=== PATIENT | female | born 1965 | race Caucasian/White ===

== ENCOUNTER 2016-04-30 01:11 | Emergency (ER) | payer OTHER ==
[~2016-04-30] VITALS: Ht 144.8 cm; Wt 75.9 kg
[2016-04-30 01:18] VITALS: TEMP 36.7; Ht 144.8 cm; Wt 75.9 kg
[2016-04-30 01:52] LABS: URINE APPEARANCE CLEAR (CLEAR); URINE BILIRUBIN NEG (NEG); URINE COLOR YELLOW; URINE EPITHELIAL CELL AUTO >30 /lpf (0-5); URINE NITRITE NEG (NEG); URINE SPECIFIC GRAVITY 1.003 (1.000-1.030); UROBILINOGEN NEG (NEG); ZZUR CULT IF INDIC CLEAN CATCH YES
[2016-04-30 01:53] LABS: MANUAL MICROSCOPIC REQUIRED? NO; REVIEW REQ? NO
[2016-04-30] MEDS ORDERED: VENL150C56 PO (02:06)
[2016-04-30] MEDS ORDERED: EFF75 PO (02:07)
[2016-04-30 02:08] LABS: HEMATOCRIT 36.2 % (37-47); MEAN CORPUSCULAR HEMOGLOBIN 29.8 pg (25-34); MEAN CORPUSCULAR HGB CONC 34.3 g/dl (32-36); MEAN PLATELET VOLUME 9.5 fL (7.4-10.4); PLATELET COUNT 302 K/uL (130-400); RED BLOOD COUNT 4.16 M/uL (4.2-5.4); WHITE BLOOD COUNT 8.93 K/uL (4.8-10.8)
[2016-04-30] MEDS ORDERED: LITH150C PO (02:08)
[2016-04-30 02:09] LABS: BENZODIAZEPINE, URINE NEG (NEG); COCAINE,URINE NEG (NEG); PHENCYCLIDINE, URINE NEG (NEG)
[2016-04-30] MEDS ORDERED: RISP0.5T10 PO (02:09)
[2016-04-30] MEDS ORDERED: FURO-85 PO (02:10)
[2016-04-30] MEDS ORDERED: CLON0.1T12 PO (02:10)
[2016-04-30] MEDS ORDERED: LISI-729 PO (02:11)
[2016-04-30] MEDS ORDERED: LORA-741 PO (02:12)
[2016-04-30] MEDS ORDERED: SITA25TA PO (02:12)
[2016-04-30] MEDS ORDERED: ATEN-173 PO (02:13)
[2016-04-30] MEDS ORDERED: OXCA150T2 PO (02:14)
[2016-04-30] MEDS ORDERED: CHOL1000 PO (02:15)
[2016-04-30] MEDS ORDERED: MULT-506 PO (02:15)
[2016-04-30] MEDS ORDERED: SENNTAB23 PO (02:16)
[2016-04-30] MEDS ORDERED: FENO48TA9 PO (02:17)
[2016-04-30] MEDS ORDERED: TRAZ50TA35 PO (02:19)
[2016-04-30] MEDS ORDERED: GLC/500 PO (02:19)
--- NOTE | 2016-04-30 02:22 | EMERGENCY ROOM VISIT NOTE ---
History Report prepared by Kyung: Carlin Bishop Under the Supervision of: Dr. Urvashi Velazquez M.D. First contact with patient: 01:32 Chief Complaint: ANXIETY Stated Complaint: WITHDRAWL FROM LORAZEPAM History of Present Illness The patient is a 50 year old female who presents to the Emergency Room with complaints of worsening anxiety that began several weeks prior to arrival. The patient states that she recently switched psychiatrists because she felt her previous psychiatrist was prescribing too many medications. Her new psychiatrist is currently taking her down from 2.5 mg of Lorazepam 4x's per day to 0.25 mg 2x's per day. She thinks she is becoming symptomatic because she is coming off her medication. Tonight she began to fear that she would take all of her pills due to her worsening anxiety. She admits that her suicidal plan would be to overdose on her medications. The patient was admitted to [address] [place] [address] over twenty years ago for depression. She notes that she has been suicidal since February of last years. She currently lives with her mother. 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 A total of 10 systems reviewed and were otherwise negative. Past Medical & Surgical Medical Problems: (1) Anxiety Anxiety Family History No pertinent family histories recorded. Social History Smoking Status: Never Smoker Marital Status: single Housing Status: lives with family Occupation Status: employed Current/Historical Medications Scheduled Atenolol (Tenormin), 50 MG PO DAILY Cholecalciferol (Vitamin D3), 2,000 UNITS PO DAILY Clomiphene Citrate (Clomiphene Citrate), 4 TABS PO HS Clonidine Hcl (Catapres), 0.2 MG PO DIRECTED Fenofibrate (Tricor), 145 MG PO DIRECTED Fish Oil ([place]-3), 1 CAP PO DAILY Fluticasone Propionate (Nasal) (Flonase Allergy Relief), 1 SPRAY MARIA LUISA DAILY Furosemide (Lasix), 20 MG PO DAILY Lisinopril (Zestril), 40 MG PO DAILY [place] Carbonate ([place] Carbonate), 600 MG PO HS Lorazepam (Ativan), Unknown Dose PO DIRECTED Metformin Hcl (Glucophage), 500 MG PO BID Methocarbamol (Robaxin), 375-750 MG PO Q8 Multivitamin (Multivitamin), 1 TAB PO DAILY Oxcarbazepine (Trileptal), 600 MG PO BID Risperidone (Risperdal), 0.5 MG PO QAM Risperidone (Risperdal), 1 TAB PO HS Sennosides-Docusate Sodium (Stool Softener), 1 TAB PO DIRECTED Sitagliptin (Januvia), 100 MG PO DAILY Trazodone Hcl (Trazodone), Unknown Dose PO DIRECTED Venlafaxine Hcl (Effexor Extended Rel), 150 MG PO HS Venlafaxine Hcl (Effexor), 75 MG PO DAILY Allergies Coded Allergies: No Known Allergies (Unverified , 04/30/16) Physical Exam Vital Signs Date Time Temp Pulse Resp B/P Pulse Ox O2 Delivery O2 Flow Rate FiO2 04/30/16 02:55 72 20 187/84 98 Room Air 04/30/16 01:25 75 04/30/16 01:18 36.7 80 18 211/88 99 Room Air Physical Exam Vital signs reviewed. General: Well-appearing female, in no significant distress. Noted to be hypertensive on exam. HEENT: No scleral icterus, PERRLA, neck supple. Atraumatic. Cardiovascular: Regular rate and rhythm, no extra sounds. Pulmonary: Clear to auscultation bilaterally, normal work of breathing. Abdomen: Soft, nontender, nondistended, positive bowel sounds. Musculoskeletal: Atraumatic, no peripheral edema. Neurologic: Patient awake alert and oriented x 3, full strength in all 4 extremities. Cranial nerves 2 through 12 grossly intact. Skin: Warm, dry, no rash Psych: Positive suicidal ideation, negative homicidal ideation. Medical Decision & Procedures Laboratory Results 04/30/16 01:55 Red Blood Count 4.16, Mean Corpuscular Volume 87.0, Mean Corpuscular Hemoglobin 29.8, Mean Corpuscular Hemoglobin Concent 34.3, Mean Platelet Volume 9.5, Neutrophils (%) (Auto) 56.5, Lymphocytes (%) (Auto) 35.6, Monocytes (%) (Auto) 6.9, Eosinophils (%) (Auto) 0.6, Basophils (%) (Auto) 0.1, Neutrophils # (Auto) 5.04, Lymphocytes # (Auto) 3.18, Monocytes # (Auto) 0.62, Eosinophils # (Auto) 0.05, Basophils # (Auto) 0.01 04/30/16 01:55 Test 04/30/16 01:32 04/30/16 01:55 Urine Color YELLOW Urine Appearance CLEAR (CLEAR) Urine pH 7.0 (4.5-7.5) Urine Specific [place] 1.003 (1.000-1.030) Urine Protein NEG (NEG) Urine Glucose (UA) NEG (NEG) Urine Ketones NEG (NEG) Urine Occult Blood NEG (NEG) Urine Nitrite NEG (NEG) Urine Bilirubin NEG (NEG) Urine Urobilinogen NEG (NEG) Urine Leukocyte Esterase LARGE (NEG) Urine WBC (Auto) 10-30 /hpf (0-5) Urine RBC (Auto) 0-4 /hpf (0-4) Urine Hyaline Casts (Auto) 0 /lpf (0-5) Urine Epithelial Cells (Auto) >30 /lpf (0-5) Urine Bacteria (Auto) NEG (NEG) Urine Opiates Screen NEG (NEG) Urine Methadone, Qualitative NEG (NEG) Urine Barbiturates NEG (NEG) Urine Phencyclidine (PCP) Level NEG (NEG) Ur Amphetamine/Methamphetamine NEG (NEG) MDMA (Ecstasy) Screen NEG (NEG) Urine Benzodiazepines Screen NEG (NEG) Urine Cocaine Metabolite NEG (NEG) Urine Marijuana (THC) NEG (NEG) White Blood Count 8.93 K/uL (4.8-10.8) Red Blood Count 4.16 M/uL (4.2-5.4) Hemoglobin 12.4 g/dL (12.0-16.0) Hematocrit 36.2 % (37-47) Mean Corpuscular Volume 87.0 fL (80-100) Mean Corpuscular Hemoglobin 29.8 pg (25-34) Mean Corpuscular Hemoglobin Concent 34.3 g/dl (32-36) Platelet Count 302 K/uL (130-400) Mean Platelet Volume 9.5 fL (7.4-10.4) Neutrophils (%) (Auto) 56.5 % Lymphocytes (%) (Auto) 35.6 % Monocytes (%) (Auto) 6.9 % Eosinophils (%) (Auto) 0.6 % Basophils (%) (Auto) 0.1 % Neutrophils # (Auto) 5.04 K/uL (1.4-6.5) Lymphocytes # (Auto) 3.18 K/uL (1.2-3.4) Monocytes # (Auto) 0.62 K/uL (0.11-0.59) Eosinophils # (Auto) 0.05 K/uL (0-0.5) Basophils # (Auto) 0.01 K/uL (0-0.2) RDW Standard Deviation 42.9 fL (36.4-46.3) RDW Coefficient of Variation 13.5 % (11.5-14.5) Immature Granulocyte % (Auto) 0.3 % Immature Granulocyte # (Auto) 0.03 K/uL (0.00-0.02) Anion Gap 12.0 mmol/L (3-11) Est Creatinine Clear Calc Drug Dose 61.2 ml/min Estimated GFR () 82.1 Estimated GFR (Non- 70.8 BUN/Creatinine Ratio 16.2 (10-20) Calcium Level 10.0 mg/dl (8.5-10.1) Total Bilirubin 0.4 mg/dl (0.2-1) Direct Bilirubin < 0.1 mg/dl (0-0.2) Aspartate Amino Transf (AST/SGOT) 22 U/L (15-37) Alanine Aminotransferase (ALT/SGPT) 17 U/L (12-78) Alkaline Phosphatase 27 U/L (45-117) Total Protein 7.6 gm/dl (6.4-8.2) Albumin 4.3 gm/dl (3.4-5.0) Salicylates Level 3.5 mg/dl (2.8-20) Acetaminophen Level < 2 ug/ml (10-30) Ethyl Alcohol mg/dL < 3.0 mg/dl (0-3) Laboratory results per my review. ECG Indication: altered mental status Rate (beats per minute): 79 Rhythm: normal sinus Findings: nonspecific-ST abn, other (LVH, poor baseline quality. ) ED Course 0202: Past medical records reviewed. The patient was evaluated in room B7. A complete history and physical examination was performed. 0537: The patient has been evaluated by Case Management on a psychiatric basis at this time. The patient and insurance manager agree to impatient treatment. She would like to go to [place], but they state they will not have beds open until they discharge current patients later on this morning. The patient will remain in the hospital until the beds open. 0730: The patient will be signed off to Dr. Reyes at change of shift. Medical Decision The patient's history was concerning for possible psychiatric disturbance. Differential diagnosis: Etiologies such as mood disorder, infection, hypoglycemia, electrolyte abnormalities, cardiac sources, intracerebral event, toxicologic, neurologic, as well as others were entertained. This patient was evaluated and appeared to be in no significant distress. Physical examination is fairly unrevealing. The patient minutes is suicidal ideation. She has been having difficulty transitioning off of her benzodiazepines. The patient has been medically cleared and was evaluated by mobile crisis. The patient prefers admission to the [facility]. They will be able to evaluate the patient for admission at approximately 7 AM. The patient will be held in the ER until that time. The case has been signed out to Dr. Reyes at the change of shift. Please see his note for disposition. Impression Primary Impression: Suicidal ideation Additional Impression: Benzodiazepine withdrawal Scribe Attestation The scribe's documentation has been prepared under my direction and personally reviewed by me in its entirety. I confirm that the note above accurately reflects all work, treatment, procedures, and medical decision making performed by me. Departure Information Dispostion Still a Patient (Patient will be signed off to Dr. Reyes at change of shift. ) Referrals Christiana Crawford, JusticeR.N.P (PCP) Patient Instructions My [facility] Problem Qualifiers Additional Impression: Benzodiazepine withdrawal Complication of substance-induced condition: with unspecified complication Qualified Codes: F13.239 - Sedative, hypnotic or anxiolytic dependence with withdrawal, unspecified
[2016-04-30 02:25] LABS: ALT/SGPT 17 U/L (12-78); AST/SGOT 22 U/L (15-37); BLOOD UREA NITROGEN 15 mg/dl (7-18); BUN/CREATININE RATIO 16.2 (10-20); CARBON DIOXIDE 24 mmol/L (21-32); CHLORIDE 108 mmol/L (98-107); CREATININE 0.95 mg/dl (0.60-1.20); GLUCOSE 148 mg/dl (70-99); POTASSIUM 3.6 mmol/L (3.5-5.1); SODIUM 144 mmol/L (136-145)
[2016-04-30 02:27] LABS: BASO % 0.1 %; BASO ABS # 0.01 K/uL (0-0.2); COMPLETE YES; EOS % 0.6 %; IG% 0.3 %; LYMPH % 35.6 %; LYMPH ABS # 3.18 K/uL (1.2-3.4); MONO % 6.9 %; NEUT % 56.5 %
[2016-04-30 02:28] LABS: ALKALINE PHOSPHATASE 27 U/L (45-117)
[2016-04-30] MEDS ORDERED: RISP1TAB18 PO (02:29)
[2016-04-30 02:37] LABS: ACETAMINOPHEN < 2 ug/ml (10-30)
[2016-04-30] MEDS ORDERED: CLOM50TA6 PO (02:38)
[2016-04-30] MEDS ORDERED: FLUT0.15 NAE (02:39)
[2016-04-30] MEDS ORDERED: METH-307 PO (02:41)
[2016-04-30] MEDS ORDERED: OMEG10007 PO (02:42)
[2016-04-30] MEDS ORDERED: VENLAFAXINE HCL 50 MG TAB PO ONE (09:30)
[2016-04-30] MEDS ORDERED: METFORMIN HCL 500 MG TAB PO ONE (09:30)
[2016-04-30] MEDS ORDERED: OXCARBAZEPINE 150 MG TAB PO ONE (09:30)
[2016-04-30] MEDS ORDERED: LISINOPRIL 40 MG TAB PO ONE (09:30)
[2016-04-30] MEDS ORDERED: RISPERIDONE ODT 0.5MG PO ONE (09:30)
[2016-04-30] MEDS ORDERED: FUROSEMIDE 20 MG TAB PO ONE (09:30)
--- NOTE | 2016-04-30 10:22 | EMERGENCY ROOM VISIT NOTE ---
ED Visit Note 50-year-old female signed off to me at change of shift from Dr. Velazquez. Patient is awaiting bed placement and transport. The patient was accepted at the [facility]. Transport form was completed.
[2016-04-30 10:23] VITALS: BP 185/86; PULSE 59; O2SAT 99
[2016-05-01] MEDS ORDERED: SITAGLIPTIN 100 MG TAB PO SCH (09:00)
[2016-05-06 14:31] LABS: SYNTHETIC CANNABINOIDS QL URIN NEGATIVE (Negative)
== END 2016-04-30 10:05 ==
LOC: EDBD 01:11 → C.EDB 01:13 → C.EDA 10:05
DX: R45.851 Suicidal ideations (principal); F13.239 Sedative, hypnotic or anxiolytic dependence with withdrawal, unspecified; F41.9 Anxiety disorder, unspecified; Z79.899 Other long term (current) drug therapy

== ENCOUNTER → 2016-05-25 | Outpatient (CLI) | payer OTHER ==
[~2016-05-25] MED LIST: ATEN-173 PO; CHOL1000 PO; CLON0.1T12 PO; EFF75 PO; FENO48TA9 PO; FLUT0.15 NAE; FURO-85 PO; GLC/500 PO; LISI-729 PO; LITH150C PO; LORA-741 PO; MULT-506 PO; OMEG10007 PO; OXCA150T2 PO; RISP0.5T10 PO; RISP1TAB18 PO; SENNTAB23 PO; SITA25TA PO; TRAZ50TA35 PO; VENL150C56 PO
[2016-05-25 12:43] LABS: CHOLESTEROL/HDL RATIO 5.2
[2016-05-25 12:53] LABS: ALT/SGPT 21 U/L (12-78); BLOOD UREA NITROGEN 15 mg/dl (7-18); CALCIUM 10.3 mg/dl (8.5-10.1); CARBON DIOXIDE 24 mmol/L (21-32); CHLORIDE 105 mmol/L (98-107); CREATININE 0.73 mg/dl (0.60-1.20); GLUCOSE 204 mg/dl (70-99); POTASSIUM 4.1 mmol/L (3.5-5.1); SODIUM 139 mmol/L (136-145)
[2016-05-25 12:56] LABS: ALB/GLOB RATIO 1.1 (0.9-2); ALKALINE PHOSPHATASE 34 U/L (45-117); AST/SGOT 22 U/L (15-37); ESTIMATED AVERAGE GLUCOSE 143 mg/dl; HA1C FLAG Normal (Normal)
== END | disposition home or self-care (01) ==
LOC: C.LABPVFM 10:45
PROVIDERS: ATTEND Nurse Practitioner
DX: E55.9 Vitamin D deficiency, unspecified (principal); E11.65 Type 2 diabetes mellitus with hyperglycemia; E78.00 Pure hypercholesterolemia, unspecified; I10 Essential (primary) hypertension

== ENCOUNTER → 2016-07-02 | Outpatient (CLI) | payer OTHER ==
[~2016-07-02] MED LIST changes: +BUSP30TA2 PO; +CHOL400T5 PO; +CLON0.2T PO; +FENO145T26 PO; +FLUO10CA48 PO; +FLUO20CA35 PO; +HYDR-3126 PO; +HYDR25TA4 PO; +INDSR/60 PO; +INSU1INJ33 SQ; +LSN20 PO; +MELATAB2 PO; +METF-384 PO; +PROP10TA7 PO; +QUET1TAB30 PO; +SENN-61 PO; +SITA100T3 PO; +ZYP10 PO; +ZYP5 PO
--- NOTE | 2016-07-03 15:28 | MAMMOGRAPHY REPORT ---
BILATERAL DIGITAL SCREENING MAMMOGRAM TOMOSYNTHESIS WITH CAD: 07/02/2016 CLINICAL HISTORY: Routine screening. Patient has no complaints. TECHNIQUE: Breast tomosynthesis in addition to standard 2D mammography was performed. Current study was also evaluated with a Computer Aided Detection (CAD) system. COMPARISON: Comparison is made to exams dated: 12/21/2014 mammogram, 07/03/2013 mammogram, 06/27/2012 mammogram, 06/21/2011 mammogram, and 06/20/2010 mammogram - [facility]. BREAST COMPOSITION: There are scattered areas of fibroglandular density in both breasts. FINDINGS: No new suspicious mass, architectural distortion or cluster of microcalcifications is see n. IMPRESSION: ACR BI-RADS CATEGORY 1: NEGATIVE There is no mammographic evidence of malignancy. A 1 year screening mammogram is recommended. The p atient will receive written notification of the results. Approximately 10% of breast cancers are not detected with mammography. A negative mammographic repor t should not delay biopsy if a clinically suggestive mass is present. Geeta Ellison M.D. ay/:07/02/2016 22:11:52 Scheme Technician: Nathaly CASPER(Trish)(M), [facility] letter sent: Normal 1/2 BI-RADS Code: ACR BI-RADS Category 1: Negative
== END | disposition home or self-care (01) ==
LOC: C.MAMM 13:12
PROVIDERS: ATTEND Nurse Practitioner
DX: Z12.31 Encounter for screening mammogram for malignant neoplasm of breast (principal)

== ENCOUNTER → 2017-01-19 | Outpatient (CLI) | payer OTHER ==
[~2017-01-19] MED LIST changes: -BUSP30TA2 PO; -CHOL400T5 PO; -CLON0.2T PO; -FENO145T26 PO; -FLUO10CA48 PO; -FLUO20CA35 PO; -HYDR-3126 PO; -HYDR25TA4 PO; -INDSR/60 PO; -INSU1INJ33 SQ; -LSN20 PO; -MELATAB2 PO; -METF-384 PO; -PROP10TA7 PO; -QUET1TAB30 PO; -SENN-61 PO; -SITA100T3 PO; -ZYP10 PO; -ZYP5 PO
[2017-01-19 13:44] LABS: ESTIMATED AVERAGE GLUCOSE 381 mg/dl; HA1C FLAG Normal (Normal)
[2017-01-19 15:00] LABS: BLOOD UREA NITROGEN 19 mg/dl (7-18); BUN/CREATININE RATIO 23.4 (10-20); CALCIUM 9.9 mg/dl (8.5-10.1); CARBON DIOXIDE 26 mmol/L (21-32); CHLORIDE 97 mmol/L (98-107); CREATININE 0.79 mg/dl (0.60-1.20); GLUCOSE 467 mg/dl (70-99); POTASSIUM 4.4 mmol/L (3.5-5.1); SODIUM 132 mmol/L (136-145)
[2017-01-19 15:10] LABS: BETA-HYDROXYBUTYRATE 13.66 mg/dL (0.2-2.81)
== END | disposition home or self-care (01) ==
LOC: C.LABPVFM 10:48
PROVIDERS: ATTEND Nurse Practitioner
DX: I10 Essential (primary) hypertension (principal); E11.69 Type 2 diabetes mellitus with other specified complication; E55.9 Vitamin D deficiency, unspecified

== ENCOUNTER 2017-02-01 11:17 | Inpatient (IN) | payer OTHER ==
[~2017-02-01] VITALS: Ht 144.8 cm; Wt 77.9 kg
[2017-02-01] MEDS ORDERED: CHOL400T5 PO (11:53)
[2017-02-01] MEDS ORDERED: SITA100T3 PO (11:53)
[2017-02-01] MEDS ORDERED: METF-384 PO (11:53)
[2017-02-01] MEDS ORDERED: HYDR-3126 PO (11:53)
[2017-02-01] MEDS ORDERED: PROP10TA7 PO (11:53)
[2017-02-01] MEDS ORDERED: BUSP30TA2 PO (11:53)
[2017-02-01] MEDS ORDERED: HYDR25TA4 PO (11:53)
[2017-02-01] MEDS ORDERED: ZYP5 PO (11:53)
[2017-02-01] MEDS ORDERED: INSU1INJ33 SQ (11:53)
[2017-02-01] MEDS ORDERED: FENO145T26 PO (11:53)
[2017-02-01] MEDS ORDERED: FLUO10CA48 PO (11:53)
[2017-02-01] MEDS ORDERED: LORA-741 PO (11:53)
[2017-02-01] MEDS ORDERED: QUET1TAB30 PO ×2 (11:53)
[2017-02-01] MEDS ORDERED: MELATAB2 PO (11:53)
[2017-02-01] MEDS ORDERED: SENN-61 PO (11:53)
[2017-02-01] MEDS ORDERED: FLUO20CA35 PO (11:53)
[2017-02-01] MEDS ORDERED: ZYP10 PO (11:53)
[2017-02-01 12:32] LABS: URINE APPEARANCE CLEAR (CLEAR); URINE BILIRUBIN NEG (NEG); URINE COLOR YELLOW; URINE PH 6.5 (4.5-7.5); URINE SPECIFIC GRAVITY 1.033 (1.000-1.030)
[2017-02-01 12:33] LABS: URINE EPITHELIAL CELL AUTO 20-30 /lpf (0-5); URINE NITRITE NEG (NEG); UROBILINOGEN NEG (NEG)
[2017-02-01 12:34] LABS: MANUAL MICROSCOPIC REQUIRED? NO; REVIEW REQ? NO; ZZUR CULT IF INDIC CLEAN CATCH NO
[2017-02-01 13:26] LABS: BASO % 0.4 %; BASO ABS # 0.04 K/uL (0-0.2); COMPLETE YES; EOS % 1.3 %; HEMATOCRIT 39.1 % (37-47); IG% 0.3 %; LYMPH % 42.1 %; LYMPH ABS # 3.89 K/uL (1.2-3.4); MEAN CELL VOLUME 85.4 fL (80-100); MEAN CORPUSCULAR HEMOGLOBIN 29.7 pg (25-34); MEAN CORPUSCULAR HGB CONC 34.8 g/dl (32-36); MONO % 5.5 %; NEUT % 50.4 %; PLATELET COUNT 301 K/uL (130-400); RED BLOOD COUNT 4.58 M/uL (4.2-5.4); WHITE BLOOD COUNT 9.23 K/uL (4.8-10.8)
[2017-02-01 13:43] LABS: BENZODIAZEPINE, URINE NEG (NEG); COCAINE,URINE NEG (NEG); PHENCYCLIDINE, URINE NEG (NEG)
[2017-02-01 13:44] LABS: BUN/CREATININE RATIO 15.2 (10-20); CALCIUM 10.6 mg/dl (8.5-10.1); CREATININE 0.9 mg/dl (0.60-1.20); POTASSIUM 3.6 mmol/L (3.5-5.1)
[2017-02-01 13:46] LABS: ALB/GLOB RATIO 1.1 (0.9-2)
[2017-02-01 13:55] LABS: BETA-HYDROXYBUTYRATE 3.7 mg/dL (0.2-2.81); THYROID STIMULATING HORMONE 1.1 uIu/ml (0.300-4.500)
[2017-02-01] MEDS ORDERED: CLON0.2T PO (14:40)
[2017-02-01] MEDS ORDERED: NovoLIN-R INSULIN PER UNIT CHARGE SQ STA ×2 (15:09→16:17)
[2017-02-01 16:38] LABS: ACETAMINOPHEN < 2 ug/ml (10-30)
[2017-02-01] MEDS ORDERED: SODIUM CHLORIDE 0.9% 1000ML 1,000 ML IV STA (17:16)
[2017-02-01] MEDS ORDERED: NovoLIN-R INSULIN PER UNIT CHARGE IV STA (17:16)
[2017-02-01] MEDS ORDERED: METFORMIN HCL 500 MG TAB PO STA (17:40)
[2017-02-01] MEDS ORDERED: PROPRANOLOL HCL 10 MG TAB PO ONE (17:45)
--- NOTE | 2017-02-01 19:50 | EMERGENCY ROOM VISIT NOTE ---
History Report prepared by Kyung: Shilpa Conde Under the Supervision of: Dr. Dank Lynne M.D. First contact with patient: 12:25 Chief Complaint: MENTAL HEALTH EVALUATION Stated Complaint: HIGH BLOOD SUGAR-OVER 400/DEPRESSION/ANXIETY History of Present Illness The patient is a 51 year old female who presents to the Emergency Room for a mental health evaluation. The patient states that her mood has "been down" and she has not been "feeling right". The patient reports having intermittent suicidal thoughts beginning a week or two ago. Per family, the patient told them about her suicidal thoughts this morning which prompted them to bring her to the hospital. She states "I feel like my medications don't work". The patient was hospitalized at the [facility] in the May. She states her time in the [facility] was "not good". She is agreeable to come into the hospital to get her medications figured out. The patient states her blood sugar was 500 last night and was around 300 this morning. The patient states she has been drinking wine and beer for the past couple days. She notes she drank a cup of wine this morning because of her depression and anxiety. She states she took her medications this morning. Presently, the patient feels anxious. The patient reports she did not sleep last night. She also notes a rash on her arm which has not been bothering her. She reports her vision has been blurry since last night. Pt denies LOC, headache, fevers, chills, diaphoresis, neck pain, chest pain, breathing difficulties, nausea, vomiting, abdominal pain, back pain, melena, hematochezia, urinary symptoms, numbness, weakness, lymphadenopathy, rash, or other complaints. Source of History: patient Onset: 1-2 weeks ago Position: other (generalized) Quality: other (mental health evaluation) Timing: intermittent Modifying Factors (Relieving): other (none) Note: The patient reports blurry vision. Review of Systems See HPI for pertinent positives and negatives. A total of ten systems were reviewed and were otherwise negative. Past Medical & Surgical Medical Problems: (1) Anxiety Family History FHx: hypertension Social History Smoking Status: Current Every Day Smoker Alcohol Use: occasionally Marital Status: single Housing Status: lives with family Occupation Status: employed Current/Historical Medications Scheduled Buspirone Hcl (Buspirone Hcl), 15 MG PO BID Cholecalciferol (Vitamin D), 4,000 INTER.UNIT PO DAILY Clonidine Hcl (Catapres), 0.1 MG PO DIRECTED Clonidine Hcl (Catapres), 1 TAB PO HS Fenofibrate (Tricor ), 145 MG PO DAILY Fluoxetine (Prozac), 10 MG PO QAM Fluoxetine (Prozac), 20 MG PO QAM Hydrochlorothiazide (Hctz), 25 MG PO QPM Hydroxyzine Hcl (Atarax), 75 MG PO HS Insulin Degludec (Tresiba Flextouch), 10 UNITS SQ DAILY Lorazepam (Ativan), 0.5 MG PO HS Melatonin (Melatonin Maximum Strengt), 10 MG PO HS Metformin Hcl (Glucophage), 1,000 MG PO BID Olanzapine (Olanzapine), 5 MG PO QAM Olanzapine (Olanzapine), 10 MG PO HS Propranolol (Inderal), 10 MG PO TID Quetiapine Fumarate (Seroquel), 25 MG PO QAM Quetiapine Fumarate (Seroquel), 50 MG PO HS Senna (Senokot), 2 TAB PO BID Sitagliptin Phosphate (Januvia), 100 MG PO DAILY Allergies Coded Allergies: No Known Allergies (Unverified , 02/01/17) Physical Exam Vital Signs Date Time Temp Pulse Resp B/P (MAP) Pulse Ox O2 Delivery O2 Flow Rate FiO2 02/01/17 18:10 80 18 179/86 96 Room Air 02/01/17 13:15 78 18 170/96 98 Room Air 02/01/17 11:24 36.9 75 17 159/91 98 Room Air Physical Exam GENERAL: Awake, alert, depressed appearing, no distress HENT: Normocephalic, atraumatic. TM's normal. Oropharynx unremarkable. EYES: PERRL. EOMI. Normal conjunctiva. Sclera non-icteric. NECK: Supple. No nuchal rigidity. FROM. No JVD or bruit. RESPIRATORY: CTA CARDIAC: RRR. No murmur. ABDOMEN: Soft, non distended. No tenderness to palpation. No rebound or guarding. No masses. MUSCULOSKELETAL: Unremarkable. No edema. No discoloration. Gross motor strength symmetric. NEURO: Cranial nerves 2-12 grossly intact. Normal sensorium. No sensory or motor deficits noted. Speech normal. No pronator drift. SKIN: No rash or jaundice noted. LYMPH: No adenopathy. PSYCH: Flat affect. Depressed mood. Positive suicidal ideation. Negative homicidal ideation. Medical Decision & Procedures Laboratory Results 02/01/17 13:11 Red Blood Count 4.58, Mean Corpuscular Volume 85.4, Mean Corpuscular Hemoglobin 29.7, Mean Corpuscular Hemoglobin Concent 34.8, Mean Platelet Volume 10.0, Neutrophils (%) (Auto) 50.4, Lymphocytes (%) (Auto) 42.1, Monocytes (%) (Auto) 5.5, Eosinophils (%) (Auto) 1.3, Basophils (%) (Auto) 0.4, Neutrophils # (Auto) 4.64, Lymphocytes # (Auto) 3.89, Monocytes # (Auto) 0.51, Eosinophils # (Auto) 0.12, Basophils # (Auto) 0.04 02/01/17 13:11 Test 02/01/17 11:50 02/01/17 13:11 02/01/17 15:06 02/01/17 15:38 Urine Color YELLOW Urine Appearance CLEAR (CLEAR) Urine pH 6.5 (4.5-7.5) Urine Specific [place] 1.033 (1.000-1.030) Urine Protein NEG (NEG) Urine Glucose (UA) 3+ (NEG) Urine Ketones NEG (NEG) Urine Occult Blood NEG (NEG) Urine Nitrite NEG (NEG) Urine Bilirubin NEG (NEG) Urine Urobilinogen NEG (NEG) Urine Leukocyte Esterase TRACE (NEG) Urine WBC (Auto) >30 /hpf (0-5) Urine RBC (Auto) 0-4 /hpf (0-4) Urine Hyaline Casts (Auto) 1-5 /lpf (0-5) Urine Epithelial Cells (Auto) 20-30 /lpf (0-5) Urine Bacteria (Auto) NEG (NEG) Urine Opiates Screen NEG (NEG) Urine Methadone, Qualitative NEG (NEG) Urine Barbiturates NEG (NEG) Urine Phencyclidine (PCP) Level NEG (NEG) Ur Amphetamine/Methamphetamine NEG (NEG) MDMA (Ecstasy) Screen NEG (NEG) Urine Benzodiazepines Screen NEG (NEG) Urine Cocaine Metabolite NEG (NEG) Urine Marijuana (THC) NEG (NEG) White Blood Count 9.23 K/uL (4.8-10.8) Red Blood Count 4.58 M/uL (4.2-5.4) Hemoglobin 13.6 g/dL (12.0-16.0) Hematocrit 39.1 % (37-47) Mean Corpuscular Volume 85.4 fL (80-100) Mean Corpuscular Hemoglobin 29.7 pg (25-34) Mean Corpuscular Hemoglobin Concent 34.8 g/dl (32-36) Platelet Count 301 K/uL (130-400) Mean Platelet Volume 10.0 fL (7.4-10.4) Neutrophils (%) (Auto) 50.4 % Lymphocytes (%) (Auto) 42.1 % Monocytes (%) (Auto) 5.5 % Eosinophils (%) (Auto) 1.3 % Basophils (%) (Auto) 0.4 % Neutrophils # (Auto) 4.64 K/uL (1.4-6.5) Lymphocytes # (Auto) 3.89 K/uL (1.2-3.4) Monocytes # (Auto) 0.51 K/uL (0.11-0.59) Eosinophils # (Auto) 0.12 K/uL (0-0.5) Basophils # (Auto) 0.04 K/uL (0-0.2) RDW Standard Deviation 39.5 fL (36.4-46.3) RDW Coefficient of Variation 13.0 % (11.5-14.5) Immature Granulocyte % (Auto) 0.3 % Immature Granulocyte # (Auto) 0.03 K/uL (0.00-0.02) Anion Gap 11.0 mmol/L (3-11) Est Creatinine Clear Calc Drug Dose 64.9 ml/min Estimated GFR () 87.0 Estimated GFR (Non- 75.1 BUN/Creatinine Ratio 15.2 (10-20) Calcium Level 10.6 mg/dl (8.5-10.1) Total Bilirubin 0.4 mg/dl (0.2-1) Aspartate Amino Transf (AST/SGOT) 25 U/L (15-37) Alanine Aminotransferase (ALT/SGPT) 28 U/L (12-78) Alkaline Phosphatase 62 U/L (45-117) Total Protein 8.0 gm/dl (6.4-8.2) Albumin 4.1 gm/dl (3.4-5.0) Globulin 3.9 gm/dl (2.5-4.0) Albumin/Globulin Ratio 1.1 (0.9-2) Beta-Hydroxybutyric Acid 3.70 mg/dL (0.2-2.81) Thyroid Stimulating Hormone (TSH) 1.100 uIu/ml (0.300-4.500) Ethyl Alcohol mg/dL < 3.0 mg/dl (0-3) Bedside Glucose 393 mg/dl (70-90) Salicylates Level < 1.7 mg/dl (2.8-20) Acetaminophen Level < 2 ug/ml (10-30) Laboratory results reviewed by me Medications Administered Medications (Trade) Dose Ordered Sig/Bud Route Start Time Stop Time Status Last Admin Dose Admin Insulin Human Regular (novoLIN-R U-100 PER UNIT) 10 units NOW STAT SQ 02/01/17 15:09 02/01/17 15:10 DC 02/01/17 15:09 10 UNITS Insulin Human Regular (novoLIN-R U-100 PER UNIT) 10 units NOW STAT SQ 02/01/17 16:17 02/01/17 16:18 DC 02/01/17 16:24 10 UNITS Sodium Chloride 1,000 ml @ 999 mls/hr Q1H1M STAT IV 02/01/17 17:16 02/01/17 18:16 DC 02/01/17 17:37 999 MLS/HR Insulin Human Regular (novoLIN-R U-100 PER UNIT) 5 units NOW STAT IV 02/01/17 17:16 02/01/17 17:19 DC 02/01/17 17:35 5 UNITS Propranolol HCl (Inderal Tab) 10 mg NOW ONCE PO 02/01/17 17:45 02/01/17 17:46 DC 02/01/17 18:09 10 MG Metformin HCl (Glucophage Tab) 1,000 mg NOW STAT PO 02/01/17 17:40 02/01/17 17:41 DC 02/01/17 18:09 1,000 MG ED Course 1246: The patient was evaluated in room A6. A complete history and physical exam was performed. 1509: Ordered Insulin Human Regular 10 units SQ. 1617: Ordered Insulin Human Regular 10 units SQ. 1635: The patient is doing well waiting on sugar recheck. 1716: Ordered Insulin Human Regular 5 units SQ, Sodium Chloride 1000 ml @ 999 mls/hr IV. 1725: I updated the patient on the treatment plan. 1739: [facility] wont accept the patient unless her blood sugar is below 250. Ordering the patients normal evening medications: Ordered Metformin HCl 1000 mg PO. 1744: Ordered Propranolol HCl 10 mg PO. 1911: The patient's blood sugar is down and the case supervisor will call Monica Phillips. 1921: The patient is resting comfortably and will be further evaluated by Monica Phillips. Medical Decision Triage Nursing notes reviewed. The patient's presentation and history were concerning for suicidal thoughts and high blood sugar. Etiologies such as mood disorder, toxicologic, infection, hypoglycemia, electrolyte abnormalities, cardiac sources, intracerebral event, neurologic, as well as others were entertained. Patient was evaluated. Clinically she was doing well. She was found to be hyperglycemic. She was given 2 doses of subcutaneous insulin. She started hyperglycemia. Psychiatry requested that her blood sugar be lower. She had an IV established. She was hydrated with a liter of normal saline. The patient was given 5 units of IV insulin. Her blood sugar was rechecked and was now in a more acceptable level. The remainder of her laboratory work was unremarkable. The patient did well without physician in the emergency department. The patient was accepted to 3 . for further management and mental health treatment. Blood Pressure Screening Patient's blood pressure: Elevated blood pressure Blood pressure disposition: Referred to PCP (evaluated by Monica Phillips) Impression Primary Impression: Hyperglycemia Additional Impression: Suicidal ideation Scribe Attestation The scribe's documentation has been prepared under my direction and personally reviewed by me in its entirety. I confirm that the note above accurately reflects all work, treatment, procedures, and medical decision making performed by me. Departure Information Dispostion Mental Health Acute Care Referrals Christiana Crawford C.R.N.P (PCP) Patient Instructions My [facility] Problem Qualifiers
[2017-02-01] MEDS ORDERED: ACETAMINOPHEN 325 MG TAB PO PRN (20:00)
[2017-02-01] MEDS ORDERED: MAGNESIUM HYDROXIDE SUSP 30 ML UDC PO PRN (20:00)
[2017-02-01] MEDS ORDERED: SODIUM CHLORIDE 0.65% NA SOLN 45 ML (OCEAN) PRN (20:00)
[2017-02-01] MEDS ORDERED: ALUMINUM/MAGNESIUM SUSP 30 ML UDC PO PRN (20:00)
[2017-02-01] MEDS ORDERED: BISMUTH SUBSALICYLATE PER ML OMNICELL CHARGE PO PRN (20:00)
[2017-02-01] MEDS ORDERED: PHARMACY GLYCEMIC MGMT CONSULT PRN (20:29)
[2017-02-01] MEDS ORDERED: DEXTROSE 50% 50 ML SYR IV PRN (20:45)
[2017-02-01] MEDS ORDERED: GLUCOSE 40% GEL 15 GM TUBE PO PRN (20:45)
[2017-02-01] MEDS ORDERED: GLUCOSE 10 TABS/TUBE PO PRN (20:45)
[2017-02-01] MEDS ORDERED: GLUCAGON FOR INJ 1 MG VIAL SQ PRN (20:45)
[2017-02-01] MEDS ORDERED: NON-FORMULARY MEDICATION (Melatonin (Melatonin Maximum Strengt) 10 MG) PO SCH (21:00)
[2017-02-01 21:01] VITALS: O2SAT 97
[2017-02-01 21:48] VITALS: BP 165/86; PULSE 72; TEMP 36.9; BMI 37.2
[2017-02-01] MEDS: LORAZEPAM 0.5 MG TAB PO SCH ×2 (22:00→23:01)
[2017-02-01] MEDS: BusPIRone 15 MG TAB PO SCH ×2 (22:00→23:01)
[2017-02-01] MEDS: OLANZAPINE 10 MG TAB PO SCH ×2 (22:00→23:03)
[2017-02-01] MEDS: PROPRANOLOL HCL 10 MG TAB PO SCH ×2 (22:00→23:02)
[2017-02-01] MEDS: INSULIN ASPART 100 UNITS/ML 3 ML PEN SC SCH ×2 (22:00→23:13)
[2017-02-01] MEDS: INSULIN GLARGINE SOLOSTAR 100 UNITS/ML 3 ML PEN SC SCH ×2 (22:00→23:10)
[2017-02-01] MEDS: CLONIDINE HCL 0.1 MG TAB PO SCH ×2 (22:00→23:02)
[2017-02-01 23:02] VITALS: BP 152/82; PULSE 73
[2017-02-01] MEDS: HYDROCHLOROTHIAZIDE 25 MG TAB PO SCH (23:02)
[2017-02-01] MEDS: hydrOXYzine HCL 25 MG TAB PO SCH (23:35)
[2017-02-02] MEDS ORDERED: INSULIN ASPART 100 UNITS/ML 3 ML PEN SC SCH ×2 (02:00→04:00)
[2017-02-02 06:55] VITALS: BP_SYST 135; BP_SYST 172; BP_DIAS 102; BP_DIAS 95; PULSE 76; PULSE 81; TEMP 36.8
[2017-02-02] MEDS ORDERED: CLONIDINE HCL 0.1 MG TAB PO ONE (08:00)
[2017-02-02 08:53] VITALS: BP 152/88; PULSE 88
[2017-02-02] MEDS ORDERED: FLUOXETINE HCL 20 MG CAP PO SCH (09:00)
[2017-02-02] MEDS ORDERED: INSULIN GLARGINE SOLOSTAR 100 UNITS/ML 3 ML PEN SC ONE (09:00)
[2017-02-02] MEDS ORDERED: FLUOXETINE HCL 10 MG CAP PO SCH (09:00)
[2017-02-02] MEDS: BusPIRone 15 MG TAB PO SCH ×2 (09:04→22:18)
[2017-02-02] MEDS: METFORMIN HCL 500 MG TAB PO SCH ×2 (09:05→17:13)
[2017-02-02] MEDS: PROPRANOLOL HCL 10 MG TAB PO SCH ×3 (09:05→22:18)
[2017-02-02] MEDS: OLANZAPINE 5 MG TAB PO SCH (09:06)
[2017-02-02] MEDS: FENOFIBRATE 145 MG TAB PO SCH (09:06)
[2017-02-02] MEDS: CHOLECALCIFEROL 1000 INTER.UNIT TAB PO SCH (09:06)
[2017-02-02] MEDS: SITAGLIPTIN 100 MG TAB PO SCH (09:06)
[2017-02-02] MEDS: INSULIN ASPART 100 UNITS/ML 3 ML PEN SC SCH ×4 (09:09→22:00)
[2017-02-02 10:00] VITALS: BMI 37.2
--- NOTE | 2017-02-02 13:27 | Pharmacy Progress Note ---
Glycemic Control Intl Consult Date of Service Feb 02, 2017. Scope Glycemic Pharmacist consulted by Dr Roy on 02/01/17 for glycemic control and to write orders per [facility] inpatient glycemic control protocol Objective Weight (Kilograms): 77.900 Accuchecks BSG (last 24hrs): Test 02/01/17 12:03 02/01/17 13:11 02/01/17 15:06 02/01/17 16:15 Bedside Glucose 309 mg/dl (70-90) 393 mg/dl (70-90) 382 mg/dl (70-90) Random Glucose 311 mg/dl (70-99) Test 02/01/17 17:01 02/01/17 18:37 02/01/17 18:48 02/02/17 04:15 Bedside Glucose 322 mg/dl (70-90) 204 mg/dl (70-90) 172 mg/dl (70-90) 281 mg/dl (70-90) Test 02/02/17 08:03 Bedside Glucose 268 mg/dl (70-90) Laboratory Data (last 24hrs) Test 02/01/17 13:11 Anion Gap 11.0 mmol/L BUN/Creatinine Ratio 15.2 Blood Urea Nitrogen 14 mg/dl Creatinine 0.90 mg/dl Potassium Level 3.6 mmol/L Sodium Level 132 mmol/L White Blood Count 9.23 K/uL Red Blood Count 4.58 M/uL Hemoglobin 13.6 g/dL Hematocrit 39.1 % Mean Corpuscular Volume 85.4 fL Mean Corpuscular Hemoglobin 29.7 pg Mean Corpuscular Hemoglobin Concent 34.8 g/dl Platelet Count 301 K/uL Mean Platelet Volume 10.0 fL Neutrophils (%) (Auto) 50.4 % Lymphocytes (%) (Auto) 42.1 % Monocytes (%) (Auto) 5.5 % Eosinophils (%) (Auto) 1.3 % Basophils (%) (Auto) 0.4 % Neutrophils # (Auto) 4.64 K/uL Lymphocytes # (Auto) 3.89 K/uL Monocytes # (Auto) 0.51 K/uL Eosinophils # (Auto) 0.12 K/uL Basophils # (Auto) 0.04 K/uL Recent Pertinent Medications Outpatient Anti-diabetic Regimen: * Tresiba 10 units SQ daily, metformin 1 gm PO BID, and Januvia 100 mg PO daily * A1c = 14.9 % 01/19/17 The patient is currently receiving: * Basal insulin: Lantus 15 units every 24 hours in the evening * Correctional Insulin: Novolog Correction per scale ACHS Goal Range: Low 140 mg/dL - High 180 mg/dL Correction Factor: 30 mg/dL/unit * Prandial insulin: Per carb ratio of 1 unit per 10 grams CHO consumed Risk Factors for Insulin Resistance: * Diet: T2 DM diet Assessment & Plan ASSESSMENT: * ADA & AACE recommend a goal blood sugar range 140-180 mg/dl for the majority of critically ill & non-critically ill patients. However, more stringent targets may be selected in individual cases. Will continue the above mentioned goal currently as patient's HbA1C is elevated and she tolerates an average blood sugar of 453 mg/dL. * Mr Martins is a 51 y/o F admitted with anxiety and depressive disorder. Whenever she was admitted to the ER her blood sugar was over 300 mg/dL. She was given 10 units of regular SQ insulin x 2 and 5 units IV. Subsequently her blood sugar decreased to 172 mg/dL. * On admission to the mental health unit, 0.2 units/kg of insulin was started as it was evident the patient's 10 units of Tresiba was not sufficient. Her fasting blood sugar was 268 mg/dL and the patient required 4 units of Novolog overnight. Therefore, an additional 10 units of Lantus was utilized for this morning. A scale will be provided for this evening as uncertain how patient will respond. Goal is to transition to once daily Lantus dosing tomorrow. * Initially, Novolog weight based stress of 2 was started last night and it appeared to provide adequate correction overnight. It did not cover breakfast however. Therefore, tightened to weight-based stress of 3 for time-being. * The patient's oral medications were continued as she was not admitted to a medical floor. PLAN FOR INPATIENT GLYCEMIC CONTROL: * Basal insulin with LANTUS 10 x 1 then 10-20 units SQ HS x 1 * Correctional Insulin with NOVOLOG per scale ACHS or Q6hrs while NPO * Goal Range: Low 140 mg/dL - High 180 mg/dL * Correction Factor: 20 mg/dL/unit * Nutritional / Prandial insulin per carb ratio of 1 unit per 7 grams CHO consumed * Please note that the plan above was derived based on current level of insulin resistance and hospital stress. These recommendations are appropriate for inpatient admission only. Plan of care upon discharge will need to be reassessed to avoid potential outpatient hypo/hyperglycemia. Thank you.
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
[2017-02-02] MEDS ORDERED: FLUOXETINE HCL 10 MG CAP PO ONE (14:38)
[2017-02-02 16:59] VITALS: BP 155/87; PULSE 64
[2017-02-02] MEDS: HYDROCHLOROTHIAZIDE 25 MG TAB PO SCH (20:55)
[2017-02-02 20:57] VITALS: BP 146/87; PULSE 68
[2017-02-02] MEDS ORDERED: INSULIN GLARGINE SOLOSTAR 100 UNITS/ML 3 ML PEN SC SCH (22:00)
[2017-02-02] MEDS ORDERED: INSULIN DEGLUDEC 100 UNIT/ML SQ SCH (22:00)
[2017-02-02] MEDS: LORAZEPAM 0.5 MG TAB PO SCH (22:18)
[2017-02-02] MEDS: hydrOXYzine HCL 25 MG TAB PO SCH (22:19)
[2017-02-02] MEDS: DOCUSATE SODIUM 100 MG CAP PO SCH (22:19)
[2017-02-02] MEDS: OLANZAPINE 10 MG TAB PO SCH (22:19)
[2017-02-02] MEDS: CLONIDINE HCL 0.1 MG TAB PO SCH (22:19)
[2017-02-03 06:55] VITALS: BP_SYST 186; BP_SYST 193; BP_DIAS 107; BP_DIAS 115; PULSE 85; PULSE 88; TEMP 36.4
[2017-02-03] MEDS: CLONIDINE HCL 0.1 MG TAB PO SCH ×3 (07:11→21:30)
[2017-02-03 08:08] VITALS: BP_SYST 171; BP_SYST 186; BP_DIAS 105; BP_DIAS 107; PULSE 71; PULSE 85; PULSE 88; TEMP 36.4
--- NOTE | 2017-02-03 08:39 | Psychiatric Progress Notes ---
Progress Note Date of Service Feb 03, 2017. Interval History The patient is a 51yo female with history of schizoaffective disorder bipolar type currently depressed who presented to the ER on 02/01/17 brought by family after she disclosed having SI that had been culminating over the prior 1-2 weeks. She had plan for toxic ingestion of her medications. She reported anxiety and stated "I feel like my medications do not work." She endorses drinking 2 cups of wine a night to self-medicate. She slept poorly the night preceding admission. Chief Complaint "I feel anxious". Subjective Patient was seen & assessed interval progress reviewed with Nursing Continues to describe mood as anxious but does not appear so, but rather appears flat and dysphoric. She was visited by DM educator, and is under the care of the hospital glycemic control team with some ongoing elevations. It is not clear if she has the ability to manage insulin yet. BP's continue to be very high despite taking her HCTZ and clonidine. She does not appear distressed when sitting in the day room watching TV with others. Patient states she feels "anxious" but on further dialouge she is paranoid that others are mad at her. She is not spontaneously able to reality test but does walk through with provider that she is aware it is her thought, that it is unlikley others are mad , that she could greet people to see how they respond to her for reassurance. Review of Systems She is eating well, and slept well and denies problems with her bowels. Sleep Information Total Hours of Sleep: 6.50 Meal Information Percent of Breakfast Consumed: 100 Percent of Lunch Consumed: 100 Percent of Dinner Consumed: 100 Mental Status Exam During interview pt is: alert and oriented, cooperative Appearance: appropriately dressed, other (overweight) Eye contact is: good Motor behavior is: steady gait & station, no abnormal motor movements Speech: normal in rate, rhythm & volume Affect: depressed Mood is: depressed, anxious Thought process: goal directed, linear, logical, clear, coherent, concrete Thought content: paranoid (that others are mad at her), ideas of reference ( that others are using facial expressions to show they are mad at her), hopelessness, worthlessness Suicidal thought are: present (less intense in the hospital), Plan: present ( to overtake medication), Intent: denied (while in the hospital) Impression Jeri Martins is a 51-year-old single white female on disability for schizoaffective disorder bipolar type. She additionally has diabetes, hypertension, hyperlipidemia and alcohol abuse. She presents in the context of worsening depressed mood and anxiety with onset of suicidal ideations worsening over the last 1-2 weeks with a plan to overdose on her medications. Inpatient care is the least restrictive and most appropriate setting for care given the patient is unsafe. Plan (1) Schizoaffective disorder, bipolar type 02/02/17 -Patient has a history of refractory schizoaffective disorder bipolar type. She has had multiple medication trials in the past. At this time given her accelerating diabetes and that she is overweight we will not increase her Zyprexa -Will hold Seroquel and defer to obtaining prior history prior to combining 2 atypicals -Consider Saphris if she has not had a trial, Abilify may be an additional option, will need to get outpatient records -We will optimize her Prozac from 30 mg to 40 mg watching mood stability -Continue her buspirone and her Vistaril when necessary for now -Group, sanchez milieu and safety checks 02/03/17 - will get med list from [facility] for past several years to see what she has been on given clinics are closed until tomorrow to inform med choice - for today will attempt to increase zyprexa to 15mg/hs (continuing her 5mg/AM) to target residual psychosis, but this may not be best fpc solution given her DM - continue all other meds as written (2) Diabetes 02/02/17 -Continue to Trsubia brought in by patient's family, metformin 1000 mg by mouth twice a day,sitagliptin, and appreciate pharmacy glycemic control assistance 02/03/17 - questioning if insulin is a good option for this individual, contacting IM for HTN and asking regarding diabetes management options as well (3) Hyperlipidemia Continue fenofibrate Last lipids in [facility] record drawn 05/25/2016 total cholesterol 213, triglycerides 232, LDL 126, HDL 41 (4) Hypertension 02/02/17 -Continue lisinopril hydrochlorothiazide and Inderal and clonidine 02/03/17 - ongoing significant HTN despite giving home meds, will request IM consultation for assistance (5) Constipation Avoid senna or other stimulating laxity does We'll give miralax for 3 days consistently holding for any loose bowel movements and start Colace 100 mg by mouth twice a day to continue long-standing Discharge / Aftercare Planning Primary Care Physician: Name: RICHARD Avelar Therapist: Name: [employer] Coordinator: Name: None Visit Code E&M Code: 02224 Inventory Assets Strengths: Willingness for care Supportive family Needs: Stabilization of her safety, addressing substance use Risk Factors Assessment : Yes /single/: Yes Health problems: Yes Mental Health Diagnoses: Yes Substance use disorders: Yes Previous attempt: Yes Family history of suicide: Yes Previous psychiatric stay: Yes Hopelessness: Yes Smoker: No Protective Factors Assessment Restorationist beliefs: No : No Responsible for young children: No Employed: No Stable relationships: Yes Supportive family: Yes Good rapport with provider: Yes Data Vital Signs Last 24 Hrs: Date Time Temp Pulse Resp B/P (MAP) Pulse Ox O2 Delivery O2 Flow Rate FiO2 02/03/17 06:55 36.4 85 16 193/115 88 186/107 02/02/17 20:57 68 146/87 02/02/17 16:59 64 155/87 02/02/17 08:53 88 152/88 Meds Administered Last 24 Hrs: Meds Administered (Past 24Hrs) Medications (Trade) Dose Ordered Sig/Bud Route Start Time Stop Time Status Last Admin Dose Admin Insulin Human Regular (novoLIN-R U-100 PER UNIT) 10 units NOW STAT SQ 02/01/17 15:09 02/01/17 15:10 DC 02/01/17 15:09 10 UNITS Insulin Human Regular (novoLIN-R U-100 PER UNIT) 10 units NOW STAT SQ 02/01/17 16:17 02/01/17 16:18 DC 02/01/17 16:24 10 UNITS Sodium Chloride 1,000 ml @ 999 mls/hr Q1H1M STAT IV 02/01/17 17:16 02/01/17 18:16 DC 02/01/17 17:37 999 MLS/HR Insulin Human Regular (novoLIN-R U-100 PER UNIT) 5 units NOW STAT IV 02/01/17 17:16 02/01/17 17:19 DC 02/01/17 17:35 5 UNITS Propranolol HCl (Inderal Tab) 10 mg NOW ONCE PO 02/01/17 17:45 02/01/17 17:46 DC 02/01/17 18:09 10 MG Metformin HCl (Glucophage Tab) 1,000 mg NOW STAT PO 02/01/17 17:40 02/01/17 17:41 DC 02/01/17 18:09 1,000 MG Cholecalciferol (Vitamin D Tab) 4,000 inter.unit DAILY PO 02/02/17 09:00 03/04/17 08:59 02/02/17 09:06 4,000 INTER.UNIT Fenofibrate (Tricor Tab) 145 mg DAILY PO 02/02/17 09:00 03/04/17 08:59 02/02/17 09:06 145 MG Fluoxetine HCl (Prozac Cap) 10 mg QAM PO 02/02/17 09:00 02/02/17 14:46 DC 02/02/17 09:06 10 MG Fluoxetine HCl (Prozac Cap) 20 mg QAM PO 02/02/17 09:00 02/02/17 14:46 DC 02/02/17 09:06 20 MG Hydrochlorothiazide (Hydrochlorothiazide Tab) 25 mg QPM PO 02/01/17 21:00 03/03/17 20:59 02/02/17 20:55 25 MG Hydroxyzine HCl (Vistaril Tab) 75 mg HS PO 02/01/17 22:00 03/03/17 21:59 02/02/17 22:19 75 MG Lorazepam (Ativan Tab) 0.5 mg HS PO 02/01/17 21:00 03/03/17 20:59 02/02/17 22:18 0.5 MG Metformin HCl (Glucophage Tab) 1,000 mg BIDM PO 02/02/17 08:00 03/04/17 07:59 02/02/17 17:13 1,000 MG Olanzapine (Zyprexa Tab) 5 mg QAM PO 02/02/17 09:00 03/04/17 08:59 02/02/17 09:06 5 MG Olanzapine (Zyprexa Tab) 10 mg HS PO 02/01/17 21:00 03/03/17 20:59 02/02/17 22:19 10 MG Propranolol HCl (Inderal Tab) 10 mg TID PO 02/01/17 21:00 03/03/17 20:59 02/02/17 22:18 10 MG Sitagliptin Phosphate (Januvia Tab) 100 mg DAILY PO 02/02/17 09:00 03/04/17 08:59 02/02/17 09:06 100 MG Buspirone HCl (BusPAR TAB) 15 mg BID PO 02/01/17 21:00 03/03/17 20:59 02/02/17 22:18 15 MG Clonidine HCl (Catapres Tab) 0.2 mg HS PO 02/01/17 21:00 03/03/17 20:59 02/02/17 22:19 0.2 MG Insulin Glargine (Lantus Solostar Pen) 15 units HS SC 02/01/17 21:00 02/02/17 12:00 DC 02/01/17 23:10 15 UNITS Insulin Aspart (novoLOG ASPART) SLIDING SCALE ACHS TX 02/01/17 21:00 03/03/17 20:59 02/02/17 17:47 12 UNITS Insulin Aspart (novoLOG ASPART) SLIDING SCALE TODAY@0400 TX 02/02/17 04:00 02/02/17 04:01 DC 02/02/17 04:23 4 UNITS Clonidine HCl (Catapres Tab) 0.1 mg NOW ONCE PO 02/02/17 08:00 02/02/17 08:01 DC 02/02/17 09:04 0.1 MG Insulin Glargine (Lantus Solostar Pen) 10 units NOW ONCE SC 02/02/17 09:00 02/02/17 09:01 DC 02/02/17 09:07 10 UNITS Clonidine HCl (Catapres Tab) 0.1 mg [id number] PO 02/03/17 07:00 03/05/17 06:59 02/03/17 07:11 0.1 MG Fluoxetine HCl (Prozac Cap) 10 mg 1438 ONCE PO 02/02/17 14:38 02/02/17 14:56 DC 02/02/17 15:13 10 MG Docusate Sodium (coLACE CAP) 100 mg BID PO 02/02/17 22:00 03/04/17 21:59 02/02/17 22:19 100 MG Insulin Degludec (Tresiba Flextouch) SEE PROTOCOL TEXT HS SQ 02/02/17 22:00 02/02/17 22:01 DC 02/02/17 22:24 15 UNITS Lab Results Last 24 Hrs: Last 24 Hours Test 02/02/17 08:03 02/02/17 11:34 02/02/17 16:05 02/02/17 20:48 Bedside Glucose 268 mg/dl 286 mg/dl 224 mg/dl 173 mg/dl
[2017-02-03] MEDS: SITAGLIPTIN 100 MG TAB PO SCH (08:44)
[2017-02-03] MEDS: DOCUSATE SODIUM 100 MG CAP PO SCH ×2 (08:44→21:30)
[2017-02-03] MEDS: PROPRANOLOL HCL 10 MG TAB PO SCH ×3 (08:44→21:30)
[2017-02-03] MEDS: BusPIRone 15 MG TAB PO SCH ×2 (08:44→21:30)
[2017-02-03] MEDS: METFORMIN HCL 500 MG TAB PO SCH (08:44)
[2017-02-03] MEDS: FLUOXETINE HCL 20 MG CAP PO SCH (08:44)
[2017-02-03] MEDS: CHOLECALCIFEROL 1000 INTER.UNIT TAB PO SCH (08:45)
[2017-02-03] MEDS: FENOFIBRATE 145 MG TAB PO SCH (08:45)
[2017-02-03] MEDS: OLANZAPINE 5 MG TAB PO SCH (08:45)
[2017-02-03] MEDS: INSULIN ASPART 100 UNITS/ML 3 ML PEN SC SCH ×4 (08:53→21:40)
[2017-02-03] MEDS ORDERED: INSULIN DEGLUDEC 100 UNIT/ML SQ SCH ×2 (09:00→22:00)
[2017-02-03] MEDS: POLYETHYLENE (MIRALAX) 17 GM PACK PO SCH (09:01)
[2017-02-03 10:22] VITALS: BP 178/99; PULSE 62
--- NOTE | 2017-02-03 12:04 | Pharmacy Progress Note ---
Pharmacy Glycemic Short Note 2 Date of Service Feb 03, 2017. OUTPATIENT ANTIDIABETIC REGIMEN: * Tresiba 10 units SQ once daily * metformin 1 gm PO BID * Januvia 100 mg PO daily ASSESSMENT: * Ms Martins is a 51 y/o F with a PMH of anxiety admitted for depressive disorder. Her blood sugars yesterday ranged from 173 mg/dL to 268 mg/dL. Her fasting today is 272 mg/dL compared to 268 mg/dL yesterday. Lantus increased today to total daily dose of 30-35 (compared to 25 units yesterday) units. Aim for once daily dosing starting Saturday. Novolog tightened to weight-based stress of 3 yesterday... now goal range reduced to provide blood sugars below 200 mg/dL. PLAN FOR INPATIENT GLYCEMIC CONTROL: * metformin 1000 mg PO BID and Januvia 100 mg PO daily * Basal insulin * Lantus 15-20 units SQ BID * Bolus insulin * NovoLog per scale ACHS or Q6hrs while NPO * Goal Range: Low 110 mg/dL - High 140 mg/dL * Correction Factor: 20 mg/dL/unit * Nutritional / Prandial insulin per carb ratio of 1 unit per 7 grams CHO consumed PLAN FOR DISCHARGE: * determined based upon dosing in hospital
[2017-02-03 14:06] VITALS: BP 154/90; PULSE 72
[2017-02-03] MEDS ORDERED: DOCUSATE SODIUM 100 MG CAP PO ONE (14:47)
--- NOTE | 2017-02-03 14:52 | Medical Consult ---
Consultation Date of Consultation: Feb 03, 2017. Attending Physician: Marcelle Roy MD History of Present Illness Ms. Martins came to the ED 02/01 due to depression and suicidal ideation. Since then her physical complaints includethat she has had blurred vision since her blood sugars began running in the 300s a few weeks ago, and she has also had increased thirst and urination. She checks her blood sugars twice per day at home. She does not follow any particular diet. She does not check blood pressures at home but thinks her htn is well managed. She has felt some racing heart rate which she associates with her anxiety. She does not currently feel any racing heart rate, palpitations or chest pain. She also suffers from chronic constipation ROS Constitutional: no chills, aches, sweats or fever Respiratory: no sob,cough, sputum, or wheezing Cardiac: no chest pain, palpitations, edema, orthopnea or lightheadedness GI: no abdominal pain, nausea, vomiting, diarrhea : no dysuria or hesitancy Extremities: no joint pain or weakness Skin: no rash Past Medical/Surgical History Medical Problems: (1) Benzodiazepine withdrawal Status: Acute (2) Hyperglycemia Status: Acute (3) Suicidal ideation Status: Acute (4) Suicidal ideation Status: Acute Family History Diabetes mellitus (cousin) FH: thyroid disease FHx: hypertension Hypertension (mother) Social History Smoking Status: Former Smoker (quit "years ago") Marital Status: single Housing Status: lives with family Occupation Status: employed Allergies Coded Allergies: No Known Allergies (Unverified , 02/01/17) Current Inpatient Medications Current Inpatient Medications Medications (Trade) Dose Ordered Sig/Bud Route Start Time Stop Time Status Last Admin Dose Admin Acetaminophen (Tylenol Tab) 650 mg Q4H PRN PO 02/01/17 20:00 03/03/17 19:59 Bismuth Subsalicylate (Kaopectate Liqd) 15 ml PRN PRN PO 02/01/17 20:00 03/03/17 19:59 Al Hydroxide/Mg Hydroxide (Maalox Susp) 30 ml Q4H PRN PO 02/01/17 20:00 03/03/17 19:59 Magnesium Hydroxide (Milk Of Magnesia Susp) 30 ml DAILY PRN PO 02/01/17 20:00 03/03/17 19:59 Sodium Chloride ([place] Nasal [place]) PRN PRN NA 02/01/17 20:00 03/03/17 19:59 Cholecalciferol (Vitamin D Tab) 4,000 inter.unit DAILY PO 02/02/17 09:00 03/04/17 08:59 02/03/17 08:45 4,000 INTER.UNIT Fenofibrate (Tricor Tab) 145 mg DAILY PO 02/02/17 09:00 03/04/17 08:59 02/03/17 08:45 145 MG Hydrochlorothiazide (Hydrochlorothiazide Tab) 25 mg QPM PO 02/01/17 21:00 03/03/17 20:59 02/02/17 20:55 25 MG Hydroxyzine HCl (Vistaril Tab) 75 mg HS PO 02/01/17 22:00 03/03/17 21:59 02/02/17 22:19 75 MG Lorazepam (Ativan Tab) 0.5 mg HS PO 02/01/17 21:00 03/03/17 20:59 02/02/17 22:18 0.5 MG Metformin HCl (Glucophage Tab) 1,000 mg BIDM PO 02/02/17 08:00 03/04/17 07:59 02/03/17 08:44 1,000 MG Olanzapine (Zyprexa Tab) 5 mg QAM PO 02/02/17 09:00 03/04/17 08:59 02/03/17 08:45 5 MG Olanzapine (Zyprexa Tab) 10 mg HS PO 02/01/17 21:00 03/03/17 20:59 02/02/17 22:19 10 MG Propranolol HCl (Inderal Tab) 10 mg TID PO 02/01/17 21:00 03/03/17 20:59 02/03/17 13:48 10 MG Sitagliptin Phosphate (Januvia Tab) 100 mg DAILY PO 02/02/17 09:00 03/04/17 08:59 02/03/17 08:44 100 MG Buspirone HCl (BusPAR TAB) 15 mg BID PO 02/01/17 21:00 03/03/17 20:59 02/03/17 08:44 15 MG Clonidine HCl (Catapres Tab) 0.2 mg HS PO 02/01/17 21:00 03/03/17 20:59 02/02/17 22:19 0.2 MG Miscellaneous Information (Consult Glycemic Management Pharmacy) 1 ea UD PRN N/A 02/01/17 20:29 03/03/17 20:28 Insulin Aspart (novoLOG ASPART) SLIDING SCALE ACHS SC 02/01/17 21:00 03/03/17 20:59 02/03/17 12:56 15 UNITS Glucose (Glucose 40% Gel) 15-30 GRAMS 15 GRAMS... UD PRN PO 02/01/17 20:45 03/03/17 20:44 Glucose (Glucose Chew Tab) 4-8 Tablets 4 Tabl... UD PRN PO 02/01/17 20:45 03/03/17 20:44 Dextrose (Dextrose 50% 50ML Syringe) 25-50ML OF 50% DW IV FOR... UD PRN IV 02/01/17 20:45 03/03/17 20:44 Glucagon (Glucagon Inj) 1 mg UD PRN SQ 02/01/17 20:45 03/03/17 20:44 Fluoxetine HCl (Prozac Cap) 40 mg QAM PO 02/03/17 09:00 03/04/17 08:59 02/03/17 08:44 40 MG Clonidine HCl (Catapres Tab) 0.1 mg [id number] PO 02/03/17 07:00 03/05/17 06:59 02/03/17 13:45 0.1 MG Docusate Sodium (coLACE CAP) 100 mg BID PO 02/02/17 22:00 03/04/17 21:59 02/03/17 08:44 100 MG Polyethylene (Miralax Powder Packet) 17 gm DAILY PO 02/03/17 09:00 02/05/17 22:00 02/03/17 09:01 17 GM Insulin Degludec (Tresiba Flextouch) SEE PROTOCOL TEXT BID SQ 02/03/17 22:00 03/05/17 21:59 Physical Exam Date Time Temp Pulse Resp B/P (MAP) Pulse Ox O2 Delivery O2 Flow Rate FiO2 02/03/17 14:06 72 154/90 02/03/17 10:22 62 16 178/99 02/03/17 08:08 71 171/105 02/03/17 08:08 36.4 85 16 186/107 88 02/03/17 06:55 36.4 85 16 193/115 88 186/107 02/02/17 20:57 68 146/87 02/02/17 16:59 64 155/87 General Appearance: WD/WN, no apparent distress Eyes: normal inspection Respiratory/Chest: chest non-tender, lungs clear, normal breath sounds, no respiratory distress, no accessory muscle use Cardiovascular: regular rate, rhythm, no edema, no gallop, no murmur, normal peripheral pulses Abdomen/GI: normal bowel sounds, non tender, soft Back: normal inspection Extremities/Musculoskelatal: normal inspection Neurologic/Psych: alert, normal mood/affect, oriented x 3 Skin: normal color Laboratory Results Last 24 Hours Test 02/02/17 16:05 02/02/17 20:48 02/03/17 07:38 02/03/17 11:59 Bedside Glucose 224 mg/dl 173 mg/dl 272 mg/dl 257 mg/dl Assessment & Plan Ms. Martins is a 51 year old woman here for treatment of depression and suicidal ideation. PmHx DMII, HLD, HTN, constipation, and schizoaffective disorder. Depression/schizoaffective disorder/suicidal ideation - treatment per behavioral health DMII - discontinued januvia and metformin in an effort to simplify regimen - continue ss, Trusiba - bsg ac&hs - pharmacy consult - follow up outpatient for eye exam HTN - blood pressures elevated - SBP 150s - 180s - add lisinopril 10 mg daily - continue propanolol and clonidine Constipation - stool softener, prn miralax HLD - continue fenofibrate
[2017-02-03] MEDS ORDERED: LISINOPRIL 5 MG TAB PO ONE (15:30)
[2017-02-03] MEDS: LORAZEPAM 0.5 MG TAB PO SCH (21:29)
[2017-02-03] MEDS: HYDROCHLOROTHIAZIDE 25 MG TAB PO SCH (21:29)
[2017-02-03] MEDS: hydrOXYzine HCL 25 MG TAB PO SCH (21:31)
[2017-02-03] MEDS: OLANZAPINE 10 MG TAB PO SCH (21:32)
[2017-02-03] MEDS ORDERED: DOCUSATE SODIUM 100 MG CAP PO SCH (22:00)
[2017-02-03 22:42] VITALS: BP 133/79; PULSE 65
[2017-02-04 07:03] VITALS: BP_SYST 155; BP_SYST 159; BP_DIAS 89; BP_DIAS 94; PULSE 60; PULSE 80; TEMP 36.8
[2017-02-04] MEDS: CLONIDINE HCL 0.1 MG TAB PO SCH ×3 (07:06→21:35)
[2017-02-04 07:29] LABS: BUN/CREATININE RATIO 28.9 (10-20); CALCIUM 9.7 mg/dl (8.5-10.1); CREATININE 0.76 mg/dl (0.60-1.20); MAGNESIUM 2.1 mg/dl (1.8-2.4); POTASSIUM 3.8 mmol/L (3.5-5.1)
[2017-02-04 08:00] VITALS: BP 155/94; PULSE 80
[2017-02-04 08:06] LABS: ESTIMATED AVERAGE GLUCOSE 329 mg/dl; HA1C FLAG Normal (Normal)
--- NOTE | 2017-02-04 08:44 | Pharmacy Progress Note ---
Pharmacy Glycemic Short Note 2 Date of Service Feb 04, 2017. OUTPATIENT ANTIDIABETIC REGIMEN: * Tresiba 10 units SQ daily, metformin 1 gm PO BID, and Januvia 100 mg PO daily ASSESSMENT: * Ms Martins is a 51 y/o F admitted with depressive disorder. Over the past several days she has been titrated upwards on her insulin coverage. Fasting blood sugars have been (268 mg/dL-- 272 mg/dL -- 215 mg/dL). Tresiba has been titrated upwards to 20 units SQ BID today, and this will be transitioned to 40 units SQ daily tomorrow. Currently Novolog remains at weight-based stress of 3. * Patient has required around 65 units of insulin (estimate requirement closer to 75-80 units for more appropriate blood sugar control). Blood sugars ranged from 106 mg/dL to 272 mg/dL. * Oral medications discontinued by primary care team today to simplify regimen. PLAN FOR INPATIENT GLYCEMIC CONTROL: * Basal insulin * Lantus 20 units SQ BID for today then transition to once daily dosing tomorrow (40 units SQ daily) * Bolus insulin * NovoLog per scale ACHS or Q6hrs while NPO * Goal Range: Low 110 mg/dL - High 140 mg/dL * Correction Factor: 20 mg/dL/unit * Nutritional / Prandial insulin per carb ratio of 1 unit per 7 grams CHO consumed PLAN FOR DISCHARGE: * Recommend basal-bolus insulin coverage for patient as an outpatient as evidence by HbA1C greater than 9% * Lantus 35 units SQ daily * Fixed Novolog doses with meals (such as 5 units with small meals and 8 units with largest meal of the day) and titrate upwards.
[2017-02-04 08:49] VITALS: BMI 37.2
[2017-02-04] MEDS: INSULIN ASPART 100 UNITS/ML 3 ML PEN SC SCH ×4 (08:57→21:40)
[2017-02-04] MEDS ORDERED: INSULIN DEGLUDEC 100 UNIT/ML SQ SCH (09:00)
[2017-02-04] MEDS: INSULIN DEGLUDEC 100 UNIT/ML SQ SCH ×2 (09:00→17:35)
[2017-02-04] MEDS: POLYETHYLENE (MIRALAX) 17 GM PACK PO SCH (09:04)
[2017-02-04] MEDS: DOCUSATE SODIUM 100 MG CAP PO SCH ×2 (09:06→21:34)
[2017-02-04] MEDS: BusPIRone 15 MG TAB PO SCH ×2 (09:06→21:35)
[2017-02-04] MEDS: PROPRANOLOL HCL 10 MG TAB PO SCH ×3 (09:06→21:34)
[2017-02-04] MEDS: CHOLECALCIFEROL 1000 INTER.UNIT TAB PO SCH (09:07)
[2017-02-04] MEDS: FLUOXETINE HCL 20 MG CAP PO SCH (09:07)
[2017-02-04] MEDS: FENOFIBRATE 145 MG TAB PO SCH (09:07)
[2017-02-04] MEDS: LISINOPRIL 10 MG TAB PO SCH (09:08)
[2017-02-04] MEDS: OLANZAPINE 5 MG TAB PO SCH (09:09)
--- NOTE | 2017-02-04 11:04 | Progress Note ---
Subjective Date of Service: Feb 04, 2017. Subjective Pt evaluation today including: conversation w/ patient Pt is doing well with insulin changes. She states she has a glucometer at home , but does not check her BS regularly. She does know how to use her glucometer. Tolerating PO without issue. Pt denies fever, SOB, chest pain, abd pain, n/v/c/d, LE pain or swelling. 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 She feels she is progressing well with her psych care. Problem List Medical Problems: (1) Benzodiazepine withdrawal Status: Acute (2) Hyperglycemia Status: Acute (3) Suicidal ideation Status: Acute (4) Suicidal ideation Status: Acute Review of Systems All Other Systems: Reviewed and Negative Objective Vital Signs Date Time Temp Pulse Resp B/P (MAP) Pulse Ox O2 Delivery O2 Flow Rate FiO2 02/04/17 08:00 80 155/94 02/04/17 07:03 36.8 60 16 159/89 80 155/94 02/03/17 22:42 65 16 133/79 02/03/17 14:06 72 154/90 Physical Exam General Appearance: no apparent distress, + obese Eyes: normal inspection, EOMI Respiratory/Chest: normal breath sounds, no respiratory distress Cardiovascular: regular rate, rhythm, no edema Abdomen: non tender, soft Extremities: non-tender, no pedal edema Neurologic/Psychiatric: alert, normal mood/affect Skin: normal color, warm/dry Laboratory Results Last 24 Hours Test 02/03/17 11:59 02/03/17 17:17 02/03/17 21:05 02/04/17 06:19 Bedside Glucose 257 mg/dl 106 mg/dl 158 mg/dl Sodium Level 137 mmol/L Potassium Level 3.8 mmol/L Chloride Level 101 mmol/L Carbon Dioxide Level 27 mmol/L Anion Gap 9.0 mmol/L Blood Urea Nitrogen 22 mg/dl Creatinine 0.76 mg/dl Est Creatinine Clear Calc Drug Dose 76.8 ml/min Estimated GFR () 106.8 Estimated GFR (Non- 92.1 BUN/Creatinine Ratio 28.9 Random Glucose 215 mg/dl Estimated Average Glucose 329 mg/dl Hemoglobin A1c 13.1 % Calcium Level 9.7 mg/dl Magnesium Level 2.1 mg/dl Test 02/04/17 08:06 Bedside Glucose 204 mg/dl Assessment and Plan Ms. Martins is a 51 year old woman here for treatment of depression and suicidal ideation. PmHx DMII, HLD, HTN, constipation, and schizoaffective disorder. Depression/schizoaffective disorder/suicidal ideation - treatment per behavioral health DMII - discontinued januvia and metformin in an effort to simplify regimen - continue ss, Tresiba - bsg ac&hs - pharmacy recs for increase tresiba to 20 units BID and ultimately d/c on 35 units QD with fixed novolog 5/5/8 units Discussed with pt and she is agreeable to these changes A1c 13.1 - follow up outpatient for eye exam HTN - blood pressures elevated - SBP 150s - 180s - added lisinopril 10 mg daily - continue propanolol and clonidine Constipation - stool softener, prn miralax HLD - continue fenofibrate CM to determine if insurance coverage will be an issue for insulin changes
--- NOTE | 2017-02-04 12:26 | Psychiatric Progress Notes ---
Progress Note Date of Service Feb 04, 2017. Interval History The patient is a 51yo female with history of schizoaffective disorder bipolar type currently depressed who presented to the ER on 02/01/17 brought by family after she disclosed having SI that had been culminating over the prior 1-2 weeks. She had plan for toxic ingestion of her medications. She reported anxiety and stated "I feel like my medications do not work." She endorses drinking 2 cups of wine a night to self-medicate. She slept poorly the night preceding admission. Chief Complaint "I think I might need to be here longer than 3-5 days, I've got a sunken feeling ". Subjective Patient was seen & assessed interval progress reviewed with Treatment Team. Staff report she has been going to groups, and expressed suicidal thoughts. She continues to report anxiety and does not feel she'll be ready for discharge later this week. Today the patient states she is going to groups and trying to "spend time with people," but worries that she won't be better enough to leave in 3-5 days, and thinks she will need a longer hospitalization. She says her mood is no different, "the depression and anxiety comes and goes," but can't describe how she is feeling further. She reports poor sleep, but nursing staff report 7 hours with Vistaril. She denies daytime sleepiness. She reports good appetite. She denies SI. Her mother visited and she is supportive. She says she spends her time watching TV and doesn't do much else, doesn't get out of the house, and doesn't work. She denies AVH and paranoia. She is interested in psych rehab and a telehealth case manager. Sleep Information Total Hours of Sleep: 7.00 Meal Information Percent of Breakfast Consumed: 100 Percent of Lunch Consumed: 100 Percent of Dinner Consumed: 100 Mental Status Exam During interview pt is: alert and oriented, cooperative Appearance: appropriately dressed, disheveled, other (overweight) Eye contact is: good (staring) Motor behavior is: steady gait & station, no abnormal motor movements Speech: normal in rate, rhythm & volume Affect: depressed, constricted Mood is: depressed, anxious Thought process: goal directed, concrete Thought content: paranoid (that others are mad at her), hopelessness, worthlessness Suicidal thought are: denied, Intent: denied (while in the hospital) Homicidal thoughts are: denied Hallucinations: denies auditory, denies visual Cognition: language grossly intact Insight: fair Judgement: fair Impression Jeri Martins is a 51-year-old single white female on disability for schizoaffective disorder bipolar type. She additionally has diabetes, hypertension, hyperlipidemia and alcohol abuse. She presents in the context of worsening depressed mood and anxiety with onset of suicidal ideations worsening over the last 1-2 weeks with a plan to overdose on her medications. Inpatient care is the least restrictive and most appropriate setting for care given the patient is unsafe. Plan (1) Schizoaffective disorder, bipolar type 02/02/17 -Patient has a history of refractory schizoaffective disorder bipolar type. She has had multiple medication trials in the past. At this time given her accelerating diabetes and that she is overweight we will not increase her Zyprexa -Will hold Seroquel and defer to obtaining prior history prior to combining 2 atypicals -Consider Saphris if she has not had a trial, Abilify may be an additional option, will need to get outpatient records -We will optimize her Prozac from 30 mg to 40 mg watching mood stability -Continue her buspirone and her Vistaril when necessary for now -Group, sanchez milieu and safety checks 02/03/17 - will get med list from [place] pharmacy for past several years to see what she has been on given clinics are closed until tomorrow to inform med choice - for today will attempt to increase Zyprexa to 15mg/hs (continuing her 5mg/AM) to target residual psychosis, but this may not be best distribution specialist solution given 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 02/04 - Get outpatient records from [facility] and the [facility] to clarify previous medication trials. - Continue olanzapine 5 mg every morning and 15 mg daily at bedtime. Reviewed most recent fasting glucose and lipid profile from 05/25/2016. - Scheduled family meeting with mother. - Referred for increased outpatient services, including case management and psych rehabilitation. (2) Diabetes 02/02/17 -Continue to Tresiba brought in by patient's family, metformin 1000 mg by mouth twice a day,sitagliptin, and appreciate pharmacy glycemic control assistance 02/03/17 - questioning if insulin is a good option for this individual, contacting for HTN and asking regarding diabetes management options as well. 02/04 - Appreciate diabetic pharmacist and hospitalist's recommendations. She will need to follow-up for an outpatient eye exam. Januvia and metformin have been discontinued to simplify her regimen, Tresiba increased to 20 units bid, and continued Novolog. (3) Hyperlipidemia Continue fenofibrate Last lipids in the [facility] record drawn 05/25/2016 total cholesterol 213, triglycerides 232, LDL 126, HDL 41 (4) Hypertension 02/02/17 -Continue lisinopril hydrochlorothiazide and Inderal and clonidine 02/03/17 - ongoing significant HTN despite giving home meds, will request IM consultation for assistance. 02/04 - Appreciate Dr. Burgos' recommendations - lisinopril 10 mg added to propanolol and clonidine. (5) Constipation Avoid senna or other stimulating laxity does We'll give miralax for 3 days consistently holding for any loose bowel movements and start Colace 100 mg by mouth twice a day to continue long-standing Discharge / Aftercare Planning Primary Care Physician: Name: RICHARD Avelar Therapist: Name: Lalita Propulsion Generator Repairer: Name: None Visit Code E&M Code: 09954 Inventory Assets Strengths: Willingness for care Supportive family Needs: Stabilization of her safety, addressing substance use Risk Factors Assessment : Yes /single/: Yes Health problems: Yes Mental Health Diagnoses: Yes Substance use disorders: Yes Previous attempt: Yes Family history of suicide: Yes Previous psychiatric stay: Yes Hopelessness: Yes Smoker: No Protective Factors Assessment Islam beliefs: No : No Responsible for young children: No Employed: No Stable relationships: Yes Supportive family: Yes Good rapport with provider: Yes Data Vital Signs Last 24 Hrs: Date Time Temp Pulse Resp B/P (MAP) Pulse Ox O2 Delivery O2 Flow Rate FiO2 02/04/17 08:00 80 155/94 02/04/17 07:03 36.8 60 16 159/89 80 155/94 02/03/17 22:42 65 16 133/79 02/03/17 14:06 72 154/90 Meds Administered Last 24 Hrs: Meds Administered (Past 24Hrs) Medications (Trade) Dose Ordered Sig/Bud Route Start Time Stop Time Status Last Admin Dose Admin Fluoxetine HCl (Prozac Cap) 40 mg QAM PO 02/03/17 09:00 03/04/17 08:59 02/04/17 09:07 40 MG Clonidine HCl (Catapres Tab) 0.1 mg [id number] PO 02/03/17 07:00 03/05/17 06:59 02/04/17 07:06 0.1 MG Fluoxetine HCl (Prozac Cap) 10 mg 1438 ONCE PO 02/02/17 14:38 02/02/17 14:56 DC 02/02/17 15:13 10 MG Docusate Sodium (coLACE CAP) 100 mg BID PO 02/02/17 22:00 03/04/17 21:59 02/04/17 09:06 100 MG Polyethylene (Miralax Powder Packet) 17 gm DAILY PO 02/03/17 09:00 02/05/17 22:00 02/04/17 09:04 17 GM Insulin Degludec (Tresiba Flextouch) SEE PROTOCOL TEXT HS SQ 02/02/17 22:00 02/02/17 22:01 DC 02/02/17 22:24 15 UNITS Insulin Degludec (Tresiba Flextouch) 15 units BID SQ 02/03/17 09:00 02/03/17 10:37 DC 02/03/17 08:49 15 UNITS Insulin Degludec (Tresiba Flextouch) SEE PROTOCOL TEXT BID SQ 02/03/17 22:00 02/04/17 07:50 DC 02/03/17 21:40 15 UNITS Lisinopril (Zestril Tab) 10 mg QAM PO 02/04/17 09:00 03/06/17 08:59 02/04/17 09:08 10 MG Olanzapine (Zyprexa Tab) 15 mg HS PO 02/03/17 22:00 03/03/17 20:59 02/03/17 21:32 15 MG Docusate Sodium (coLACE CAP) 100 mg 1447 ONCE PO 02/03/17 14:47 02/03/17 14:53 DC 02/03/17 16:56 100 MG Lisinopril (Zestril Tab) 10 mg NOW ONCE PO 02/03/17 15:30 02/03/17 15:32 DC 02/03/17 16:56 10 MG Insulin Degludec (Tresiba Flextouch) 20 units BID SQ 02/04/17 09:00 02/05/17 00:00 02/04/17 09:00 20 UNITS Lab Results Last 24 Hrs: Last 24 Hours Test 02/03/17 17:17 02/03/17 21:05 02/04/17 06:19 02/04/17 08:06 Bedside Glucose 106 mg/dl 158 mg/dl 204 mg/dl Sodium Level 137 mmol/L Potassium Level 3.8 mmol/L Chloride Level 101 mmol/L Carbon Dioxide Level 27 mmol/L Anion Gap 9.0 mmol/L Blood Urea Nitrogen 22 mg/dl Creatinine 0.76 mg/dl Est Creatinine Clear Calc Drug Dose 76.8 ml/min Estimated GFR () 106.8 Estimated GFR (Non- 92.1 BUN/Creatinine Ratio 28.9 Random Glucose 215 mg/dl Estimated Average Glucose 329 mg/dl Hemoglobin A1c 13.1 % Calcium Level 9.7 mg/dl Magnesium Level 2.1 mg/dl
[2017-02-04 13:55] VITALS: BP 178/103; PULSE 69
[2017-02-04 21:02] VITALS: BP 155/88; PULSE 61
[2017-02-04] MEDS: HYDROCHLOROTHIAZIDE 25 MG TAB PO SCH (21:33)
[2017-02-04] MEDS: OLANZAPINE 10 MG TAB PO SCH (21:33)
[2017-02-04] MEDS: LORAZEPAM 0.5 MG TAB PO SCH (21:35)
[2017-02-04] MEDS: hydrOXYzine HCL 25 MG TAB PO SCH (21:35)
[2017-02-05 07:05] VITALS: BP_SYST 166; BP_SYST 176; BP_DIAS 88; BP_DIAS 95; PULSE 79; PULSE 86; TEMP 36.7
[2017-02-05] MEDS: CLONIDINE HCL 0.1 MG TAB PO SCH ×3 (07:07→22:10)
[2017-02-05 08:49] VITALS: BP 160/99; PULSE 83
[2017-02-05] MEDS ORDERED: INSULIN DEGLUDEC 100 UNIT/ML SQ SCH ×2 (09:00→17:45)
[2017-02-05] MEDS: INSULIN ASPART 100 UNITS/ML 3 ML PEN SC SCH ×4 (09:17→22:00)
[2017-02-05] MEDS: PROPRANOLOL HCL 10 MG TAB PO SCH ×3 (09:18→22:11)
[2017-02-05] MEDS: LISINOPRIL 10 MG TAB PO SCH (09:18)
[2017-02-05] MEDS: BusPIRone 15 MG TAB PO SCH ×2 (09:18→22:08)
[2017-02-05] MEDS: DOCUSATE SODIUM 100 MG CAP PO SCH ×2 (09:18→22:08)
[2017-02-05] MEDS: OLANZAPINE 5 MG TAB PO SCH (09:18)
[2017-02-05] MEDS: FENOFIBRATE 145 MG TAB PO SCH (09:18)
[2017-02-05] MEDS: CHOLECALCIFEROL 1000 INTER.UNIT TAB PO SCH (09:18)
[2017-02-05] MEDS: FLUOXETINE HCL 20 MG CAP PO SCH (09:18)
[2017-02-05] MEDS: POLYETHYLENE (MIRALAX) 17 GM PACK PO SCH (09:18)
[2017-02-05] MEDS: SITAGLIPTIN 100 MG TAB PO SCH (11:06)
[2017-02-05] MEDS: METFORMIN HCL 500 MG TAB PO SCH ×2 (11:07→17:46)
--- NOTE | 2017-02-05 13:30 | Psychiatric Progress Notes ---
Progress Note Date of Service Feb 05, 2017. Interval History The patient is a 51yo female with history of schizoaffective disorder bipolar type currently depressed who presented to the ER on 02/01/17 brought by family after she disclosed having SI that had been culminating over the prior 1-2 weeks. She had plan for toxic ingestion of her medications. She reported anxiety and stated "I feel like my medications do not work." She endorses drinking 2 cups of wine a night to self-medicate. She slept poorly the night preceding admission. Chief Complaint "A little bit better". Subjective Patient was seen & assessed interval progress reviewed with Nursing. Staff report she continues to report depression and anxiety, and is worried she won't be able to stay long enough. Today she reports mood is "maybe a little better," rates it a 4 out of 10. She reports ongoing anxiety, with "racing thoughts" that she describes as worrying that people don't like her and perseverating on negatives. She is unable to identify coping skills she's tried. When listing coping skills, she says she has tried some, and they've helped (talking to others). They occur intermittently throughout the day and are worse at night when she is trying to fall asleep. Denies AVH, but reports paranoia that " people are talking about me." Denies SI and thoughts of harming herself. She denies side effects to medications. Appetite is good, and sleep is good per staff report 6.5 hrs, but patient states she had trouble falling asleep and staying asleep. She will have a meeting with her mother tomorrow, and wants to discuss "having her not treat me like a little kid." She says her mother "babies " her, "she roxie me." She would like her mother to "be more supportive, understand me." Sleep Information Total Hours of Sleep: 6.50 Meal Information Percent of Breakfast Consumed: 100 Percent of Lunch Consumed: 100 Percent of Dinner Consumed: 100 Mental Status Exam During interview pt is: alert and oriented, cooperative Appearance: appropriately dressed, disheveled, other (overweight) Eye contact is: good (staring) Motor behavior is: steady gait & station, no abnormal motor movements Speech: normal in rate, rhythm & volume Affect: blunted Mood is: depressed, anxious Thought process: goal directed, concrete Thought content: paranoid (that others are mad at her), hopelessness, worthlessness Suicidal thought are: denied Homicidal thoughts are: denied Hallucinations: denies auditory, denies visual Cognition: language grossly intact Insight: fair Judgement: fair Impression Jeri Martins is a 51-year-old single white female on disability for schizoaffective disorder bipolar type. She additionally has diabetes, hypertension, hyperlipidemia and alcohol abuse. She presents in the context of worsening depressed mood and anxiety with onset of suicidal ideations worsening over the last 1-2 weeks with a plan to overdose on her medications. Inpatient care is the least restrictive and most appropriate setting for care given the patient is unsafe. Plan (1) Schizoaffective disorder, bipolar type 02/02/17 -Patient has a history of refractory schizoaffective disorder bipolar type. She has had multiple medication trials in the past. At this time given her accelerating diabetes and that she is overweight we will not increase her Zyprexa -Will hold Seroquel and defer to obtaining prior history prior to combining 2 atypicals -Consider Saphris if she has not had a trial, Abilify may be an additional option, will need to get outpatient records -We will optimize her Prozac from 30 mg to 40 mg watching mood stability -Continue her buspirone and her Vistaril when necessary for now -Group, sanchez milieu and safety checks 02/03/17 - will get med list from [facility] pharmacy for past several years to see what she has been on given clinics are closed until tomorrow to inform med choice - for today will attempt to increase Zyprexa to 15mg/hs (continuing her 5mg/AM) to target residual psychosis, but this may not be best nursing home solution given 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 02/04 - Get outpatient records from [facility] and [facility] to clarify previous medication trials. - Continue olanzapine 5 mg every morning and 15 mg daily at bedtime. Reviewed most recent fasting glucose and lipid profile from 05/25/2016. - Scheduled family meeting with mother. - Referred for increased outpatient services, including case management and psych rehabilitation. 02/05 - Continue current meds. Encourage patient to work on healthy coping skills and discharge safety plan. Discussed keeping meds locked and dispensing to weekly pillbox to limit access to large amounts of meds. - Family meeting with mother tomorrow - will need to share safety plan. (2) Diabetes 02/02/17 -Continue to Tresiba brought in by patient's family, metformin 1000 mg by mouth twice a day,sitagliptin, and appreciate pharmacy glycemic control assistance 02/03/17 - questioning if insulin is a good option for this individual, contacting IM for HTN and asking regarding diabetes management options as well. 02/04 - Appreciate diabetic pharmacist and hospitalist's recommendations. She will need to follow-up for an outpatient eye exam. Januvia and metformin have been discontinued to simplify her regimen, Tresiba increased to 20 units bid, and continued Novolog. (3) Hyperlipidemia Continue fenofibrate Last lipids in the [facility] record drawn 05/25/2016 total cholesterol 213, triglycerides 232, LDL 126, HDL 41 (4) Hypertension 02/02/17 -Continue lisinopril hydrochlorothiazide and Inderal and clonidine 02/03/17 - ongoing significant HTN despite giving home meds, will request IM consultation for assistance. 02/04 - Appreciate Dr. Burgos' recommendations - lisinopril 10 mg added to propanolol and clonidine. (5) Constipation Avoid senna or other stimulating laxity does We'll give Miralax for 3 days consistently holding for any loose bowel movements and start Colace 100 mg by mouth twice a day to continue long-standing 02/05 - Having regular BMs. Discharge / Aftercare Planning Primary Care Physician: Name: RICHARD Avelar Therapist: Name: Lalita Profiling Machine Operator: Name: None Visit Code E&M Code: 59749 Inventory Assets Strengths: Willingness for care Supportive family Needs: Stabilization of her safety, addressing substance use Risk Factors Assessment : Yes /single/: Yes Health problems: Yes Mental Health Diagnoses: Yes Substance use disorders: Yes Previous attempt: Yes Family history of suicide: Yes Previous psychiatric stay: Yes Hopelessness: Yes Smoker: No Protective Factors Assessment Lutheran beliefs: No : No Responsible for young children: No Employed: No Stable relationships: Yes Supportive family: Yes Good rapport with provider: Yes Data Vital Signs Last 24 Hrs: Date Time Temp Pulse Resp B/P (MAP) Pulse Ox O2 Delivery O2 Flow Rate FiO2 02/05/17 08:49 83 160/99 02/05/17 07:05 36.7 79 18 166/88 86 176/95 02/04/17 21:02 61 18 155/88 02/04/17 13:55 69 178/103 Meds Administered Last 24 Hrs: Meds Administered (Past 24Hrs) Medications (Trade) Dose Ordered Sig/Bud Route Start Time Stop Time Status Last Admin Dose Admin Insulin Degludec (Tresiba Flextouch) SEE PROTOCOL TEXT BID SQ 02/03/17 22:00 02/04/17 07:50 DC 02/03/17 21:40 15 UNITS Lisinopril (Zestril Tab) 10 mg QAM PO 02/04/17 09:00 03/06/17 08:59 02/05/17 09:18 10 MG Olanzapine (Zyprexa Tab) 15 mg HS PO 02/03/17 22:00 03/03/17 20:59 02/04/17 21:33 15 MG Docusate Sodium (coLACE CAP) 100 mg 1447 ONCE PO 02/03/17 14:47 02/03/17 14:53 DC 02/03/17 16:56 100 MG Lisinopril (Zestril Tab) 10 mg NOW ONCE PO 02/03/17 15:30 02/03/17 15:32 DC 02/03/17 16:56 10 MG Insulin Degludec (Tresiba Flextouch) 20 units BID SQ 02/04/17 09:00 02/05/17 00:00 DC 02/04/17 17:35 20 UNITS Insulin Degludec (Tresiba Flextouch) 40 units QAM SQ 02/05/17 09:00 03/07/17 08:59 02/05/17 09:18 40 UNITS Metformin HCl (Glucophage Tab) 1,000 mg BIDM PO 02/05/17 10:30 03/07/17 10:29 02/05/17 11:07 1,000 MG Sitagliptin Phosphate (Januvia Tab) 100 mg DAILY PO 02/05/17 10:30 03/07/17 10:29 02/05/17 11:06 100 MG Lab Results Last 24 Hrs: Last 24 Hours Test 02/04/17 17:17 02/04/17 21:01 02/05/17 07:46 Bedside Glucose 145 mg/dl 208 mg/dl 189 mg/dl
[2017-02-05 14:03] VITALS: BP 169/96; PULSE 70
--- NOTE | 2017-02-05 14:16 | Pharmacy Progress Note ---
Pharmacy Glycemic Short Note 2 Date of Service Feb 05, 2017. OUTPATIENT ANTIDIABETIC REGIMEN: * Tresiba 10 units SQ daily * Metformin 1 gm PO BID and Januvia 100 mg PO daily ASSESSMENT: * 51 y/o T2DM female admitted with depressive disorder. * Poor outpatient control evidenced by A1c of 14.9 %. Dose of Tresiba was increased to a total of 40 mg daily on 02/04. Will only slightly increase Tresiba dose today since current dose is not at steady state. * Pt continues to have prandial BSG elevation. Will tighten carb ratio. * Anticipate needing about 80 units of insulin per day. * Based on discussion with Hospitalist today, it was decided that the patient will go back on a combination of oral agents and basal insulin d/t concern of non-compliance if patient is prescribed multiple injections of insulin per day. I will resume metformin and januvia today and continue to titrate basal insulin to goal BSG. PLAN FOR INPATIENT GLYCEMIC CONTROL: * Metformin 1000 mg PO BID + Januvia 100 mg PO daily * Basal insulin * Tresiba 40 units SQ qam + 5 units SQ at dinner * Bolus insulin * NovoLog per scale ACHS * Goal Range: Low 110 mg/dL - High 140 mg/dL * Correction Factor: 20 mg/dL/unit * Nutritional / Prandial insulin per carb ratio of 1 unit per 6 grams CHO consumed PLAN FOR DISCHARGE: * A regimen of basal + bolus insulin is preferred for A1c > 10%, however, due to concern for non-compliance with multiple insulin injections, I recommend maximizing basal insulin fist. * Recommend Tresiba 40 units SQ daily * Continue metformin and Januvia
--- NOTE | 2017-02-05 16:43 | Progress Note ---
Subjective Date of Service: Feb 05, 2017. Subjective Ms Martins was visited in mental health unit, I asked her about her diabetic regimen, she initally agreed to intensive therapy, but when I quizzed her about checking her blood glucose frequently she told me she did thing she could do that. I offered to have continued education while she is an inpatient, and she agreed. I personally spoke to glycemic pharmacist and they will try to resume her glucophage and januvia along with some long acting insulin to control diabetes while she is working on her mental health issues then once she has this current acute issue controlled she may consider basal bolus therapy Problem List Medical Problems: (1) Benzodiazepine withdrawal Status: Acute (2) Hyperglycemia Status: Acute (3) Suicidal ideation Status: Acute (4) Suicidal ideation Status: Acute Review of Systems Constitutional: + weakness, No fever, No chills Eyes: + worsening of vision, No eye pain ENT: No hearing loss, No unusual epistaxis Cardiac: No chest pain, No orthopnea, No PND, No edema Objective Vital Signs Date Time Temp Pulse Resp B/P (MAP) Pulse Ox O2 Delivery O2 Flow Rate FiO2 02/05/17 14:03 70 16 169/96 02/05/17 08:49 83 160/99 02/05/17 07:05 36.7 79 18 166/88 86 176/95 02/04/17 21:02 61 18 155/88 Physical Exam General Appearance: + mild distress, + obese Eyes: PERRL, EOMI Neurologic/Psychiatric: alert, oriented x 3 Skin: normal color, warm/dry Laboratory Results Last 24 Hours Test 02/04/17 17:17 02/04/17 21:01 02/05/17 07:46 02/05/17 12:27 Bedside Glucose 145 mg/dl 208 mg/dl 189 mg/dl 239 mg/dl Test 02/05/17 15:59 Bedside Glucose 170 mg/dl Assessment and Plan Ms. Martins is a 51 year old woman here for treatment of depression and suicidal ideation. PmHx DMII, HLD, HTN, constipation, and schizoaffective disorder. Depression/schizoaffective disorder/suicidal ideation this is the reason for her admission DMII, he has been times daily and notes that blood milligram pharmacy recs for increase tresiba to 40 units QD will resume glucophage and januvia - follow up outpatient for eye exam HTN still elevated lisinopril 10 mg daily started 02/04, increased propanolol and continue clonidine Constipation- stool softener, prn miralax HLD fenofibrate
[2017-02-05] MEDS: LORAZEPAM 0.5 MG TAB PO SCH (22:08)
[2017-02-05] MEDS: HYDROCHLOROTHIAZIDE 25 MG TAB PO SCH (22:09)
[2017-02-05] MEDS: hydrOXYzine HCL 25 MG TAB PO SCH (22:11)
[2017-02-05] MEDS: OLANZAPINE 10 MG TAB PO SCH (22:14)
[2017-02-05 22:19] VITALS: BP 138/81; PULSE 66
[2017-02-06] MEDS: CLONIDINE HCL 0.1 MG TAB PO SCH ×3 (06:34→22:00)
[2017-02-06 06:45] VITALS: BP_SYST 165; BP_SYST 174; BP_DIAS 90; BP_DIAS 91; PULSE 75; PULSE 76; TEMP 36.4
[2017-02-06] MEDS: BusPIRone 15 MG TAB PO SCH ×2 (08:19→22:04)
[2017-02-06] MEDS: DOCUSATE SODIUM 100 MG CAP PO SCH ×2 (08:19→22:04)
[2017-02-06] MEDS: FENOFIBRATE 145 MG TAB PO SCH (08:20)
[2017-02-06] MEDS: PROPRANOLOL HCL 10 MG TAB PO SCH (08:20)
[2017-02-06] MEDS: FLUOXETINE HCL 20 MG CAP PO SCH (08:20)
[2017-02-06] MEDS: SITAGLIPTIN 100 MG TAB PO SCH (08:20)
[2017-02-06] MEDS: METFORMIN HCL 500 MG TAB PO SCH ×2 (08:20→17:59)
[2017-02-06] MEDS: CHOLECALCIFEROL 1000 INTER.UNIT TAB PO SCH (08:21)
[2017-02-06] MEDS: OLANZAPINE 5 MG TAB PO SCH (08:21)
[2017-02-06] MEDS: LISINOPRIL 10 MG TAB PO SCH (08:21)
[2017-02-06] MEDS: INSULIN ASPART 100 UNITS/ML 3 ML PEN SC SCH ×4 (08:54→22:25)
[2017-02-06] MEDS: INSULIN DEGLUDEC 100 UNIT/ML SQ SCH (08:56)
[2017-02-06] MEDS ORDERED: PROPRANOLOL HCL 10 MG TAB PO ONE (09:00)
--- NOTE | 2017-02-06 10:00 | Psychiatric Progress Notes ---
Progress Note Date of Service Feb 06, 2017. Interval History The patient is a 51yo female with history of schizoaffective disorder bipolar type currently depressed who presented to the ER on 02/01/17 brought by family after she disclosed having SI that had been culminating over the prior 1-2 weeks. She had plan for toxic ingestion of her medications. She reported anxiety and stated "I feel like my medications do not work." She endorses drinking 2 cups of wine a night to self-medicate. She slept poorly the night preceding admission. Chief Complaint "Starting to feel a little better". Subjective Patient was seen & assessed interval progress reviewed with Treatment Team. Staff report Today, the patient states she is feeling "a little bit better." She rates mood a 4-5 out of 10, and says she is trying to work on coping skills, such as reading anabaptist books, listening to music, and talking to others. She is hoping to return to yarsani, which she hasn't been to in a while. She reports improved sleep and good appetite. She continues to endorse anxiety, feels fidgeting, with worried, racing thoughts, which she says is constant. She worries about others "judging me, being mad at me." She recognizes this may just be her anxiety, and that she will get upset if people don't approach her, but admits she is not starting conversations with them either. She has a meeting with her mother today and says she "wants more support from her, try to understand me." She is able to say she would like "more hugs." She says she manages her medications on her own and her mother doesn't help her with that at all. She cannot tell me the names of the meds she takes or the doses, and says she just follows the directions on the prescription bottles. She denies side effects from her current meds. She continues to have suicidal thoughts, last yesterday, with thoughts of overdosing on her pills. She attributes this to "a lot of stress, just being around other people," but cannot be more specific about what was going on. She did not approach staff and says she "just dealt with it." She is able to contract for safety on the unit, but says she might act on these thoughts if she were at home. She is poorly able to engage in safety planning. Sleep Information Total Hours of Sleep: 5.00 Meal Information Percent of Breakfast Consumed: 100 Percent of Lunch Consumed: 100 Percent of Dinner Consumed: 100 Mental Status Exam During interview pt is: alert and oriented, cooperative Appearance: appropriately dressed, other (overweight) Eye contact is: good (staring) Motor behavior is: steady gait & station, no abnormal motor movements Speech: normal in rate, rhythm & volume Affect: mood congruent, depressed, anxious, constricted Mood is: depressed, anxious Thought process: goal directed, concrete Thought content: paranoid (that others are mad at her and don't like her), hopelessness, worthlessness Suicidal thought are: present, Plan: present, Intent: denied (can contract for safety on unit, but not outside the hospital) Homicidal thoughts are: denied Hallucinations: denies auditory, denies visual Cognition: language grossly intact Insight: fair Judgement: fair Impression Jeri Martins is a 51-year-old single white female on disability for schizoaffective disorder bipolar type. She additionally has diabetes, hypertension, hyperlipidemia and alcohol abuse. She presents in the context of worsening depressed mood and anxiety with onset of suicidal ideations worsening over the last 1-2 weeks with a plan to overdose on her medications. Inpatient care is the least restrictive and most appropriate setting for care given that she continues to have SI and cannot contract for safety outside the hospital. Plan (1) Schizoaffective disorder, bipolar type 02/02/17 -Patient has a history of refractory schizoaffective disorder bipolar type. She has had multiple medication trials in the past. At this time given her accelerating diabetes and that she is overweight we will not increase her Zyprexa -Will hold Seroquel and defer to obtaining prior history prior to combining 2 atypicals -Consider Saphris if she has not had a trial, Abilify may be an additional option, will need to get outpatient records -We will optimize her Prozac from 30 mg to 40 mg watching mood stability -Continue her buspirone and her Vistaril when necessary for now -Group, sanchez milieu and safety checks 02/03/17 - will get med list from [facility] for past several years to see what she has been on given clinics are closed until tomorrow to inform med choice - for today will attempt to increase Zyprexa to 15mg/hs (continuing her 5mg/AM) to target residual psychosis, but this may not be best retirement solution given 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 02/04 - Get outpatient records from [facility] and the [facility] to clarify previous medication trials. - Continue olanzapine 5 mg every morning and 15 mg daily at bedtime. Reviewed most recent fasting glucose and lipid profile from 05/25/2016. - Scheduled family meeting with mother. - Referred for increased outpatient services, including case management and psych rehabilitation. 02/05 - Continue current meds. Encourage patient to work on healthy coping skills and discharge safety plan. Discussed keeping meds locked and dispensing to weekly pillbox to limit access to large amounts of meds. - Family meeting with mother tomorrow - will need to share safety plan. 02/06 - Patient would benefit from continued work on coping skills and a robust safety plan, to include securing all medications that she will not have access to large amounts of pills (as her suicide plan is to overdose), and if her mother is not able to assist with this, consider a referral for mobile med management. - Explore ways to increase outpatient supports, such as referral for case management and psych rehabilitation. (2) Diabetes 02/02/17 -Continue to Tresiba brought in by patient's family, metformin 1000 mg by mouth twice a day,sitagliptin, and appreciate pharmacy glycemic control assistance 02/03/17 - questioning if insulin is a good option for this individual, contacting IM for HTN and asking regarding diabetes management options as well. 02/04 - Appreciate diabetic pharmacist and hospitalist's recommendations. She will need to follow-up for an outpatient eye exam. Januvia and metformin have been discontinued to simplify her regimen, Tresiba increased to 20 units bid, and continued Novolog. 02/05 - Appreciate Dr. Romero's recommendations. Patient with limited cognitive ability, would benefit from a simplified regimen, and we will ask the clinical systems educator to meet with her and her mother together to review diabetes education information. (3) Hyperlipidemia Continue fenofibrate Last lipids in the [facility] record drawn 05/25/2016 total cholesterol 213, triglycerides 232, LDL 126, HDL 41 (4) Hypertension 02/02/17 -Continue lisinopril hydrochlorothiazide and Inderal and clonidine 02/03/17 - ongoing significant HTN despite giving home meds, will request IM consultation for assistance. 02/04 - Appreciate Dr. Burgos' recommendations - lisinopril 10 mg added to propanolol and clonidine. 02/05 - Appreciate Dr. Romero's recommendations; propanolol increased as she remains hypertensive. (5) Constipation Avoid senna or other stimulating laxity does We'll give Miralax for 3 days consistently holding for any loose bowel movements and start Colace 100 mg by mouth twice a day to continue long-standing 02/05 - Having regular BMs. Discharge / Aftercare Planning Primary Care Physician: Name: RICHARD Avelar Therapist: Name: Lalita Supervisor Product Inspection: Name: None Visit Code E&M Code: 35932 Inventory Assets Strengths: Willingness for care Supportive family Needs: Stabilization of her safety, addressing substance use Risk Factors Assessment : Yes /single/: Yes Health problems: Yes Mental Health Diagnoses: Yes Substance use disorders: Yes Previous attempt: Yes Family history of suicide: Yes Previous psychiatric stay: Yes Hopelessness: Yes Smoker: No Protective Factors Assessment Zoroastrianism beliefs: No : No Responsible for young children: No Employed: No Stable relationships: Yes Supportive family: Yes Good rapport with provider: Yes Data Vital Signs Last 24 Hrs: Date Time Temp Pulse Resp B/P (MAP) Pulse Ox O2 Delivery O2 Flow Rate FiO2 02/06/17 06:45 36.4 76 16 165/90 75 174/91 02/05/17 22:19 66 16 138/81 02/05/17 14:03 70 16 169/96 Meds Administered Last 24 Hrs: Meds Administered (Past 24Hrs) Medications (Trade) Dose Ordered Sig/Bud Route Start Time Stop Time Status Last Admin Dose Admin Insulin Degludec (Tresiba Flextouch) 40 units QAM SQ 02/05/17 09:00 02/06/17 08:33 DC 02/05/17 09:18 40 UNITS Metformin HCl (Glucophage Tab) 1,000 mg BIDM PO 02/05/17 10:30 03/07/17 10:29 02/06/17 08:20 1,000 MG Sitagliptin Phosphate (Januvia Tab) 100 mg DAILY PO 02/05/17 10:30 03/07/17 10:29 02/06/17 08:20 100 MG Insulin Degludec (Tresiba Flextouch) 5 units QDD SQ 02/05/17 17:45 02/05/17 17:46 DC 02/05/17 17:55 5 UNITS Insulin Degludec (Tresiba Flextouch) 45 units QAM SQ 02/06/17 09:00 03/08/17 08:59 02/06/17 08:56 45 UNITS Propranolol HCl (Inderal Tab) 5 mg NOW ONCE PO 02/06/17 09:00 02/06/17 09:08 DC 02/06/17 09:37 5 MG Lab Results Last 24 Hrs: Last 24 Hours Test 02/05/17 12:27 02/05/17 15:59 02/05/17 22:01 02/06/17 07:46 Bedside Glucose 239 mg/dl 170 mg/dl 124 mg/dl 133 mg/dl
--- NOTE | 2017-02-06 11:40 | Hospitalist Progress Note ---
Hospitalist Progress Note Date of Service Feb 06, 2017. (Jayashree Colon CRNP) Subjective Pt evaluation today including: conversation w/ patient, physical exam, chart review, lab review, review of inpatient medication list Voiding: no voiding problems Ms. Martins is feeling well overall. She continues to have some blurred vision and has been using a magnifying glass to read. ROS Constitutional: no chills, aches, sweats or fever Respiratory: no sob,cough, sputum, or wheezing Cardiac: no chest pain, palpitations, edema, orthopnea or lightheadedness GI: no abdominal pain, nausea, vomiting, diarrhea or constipation : no dysuria or hesitancy Extremities: no joint pain or weakness Skin: no rash All Other Systems: Reviewed and Negative (Jayashree Colon CRNP) Medications Medications Administered Medications (Trade) Dose Ordered Sig/Bud Route Start Time Stop Time Status Last Admin Dose Admin Insulin Human Regular (novoLIN-R U-100 PER UNIT) 10 units NOW STAT SQ 02/01/17 15:09 02/01/17 15:10 DC 02/01/17 15:09 10 UNITS Insulin Human Regular (novoLIN-R U-100 PER UNIT) 10 units NOW STAT SQ 02/01/17 16:17 02/01/17 16:18 DC 02/01/17 16:24 10 UNITS Sodium Chloride 1,000 ml @ 999 mls/hr Q1H1M STAT IV 02/01/17 17:16 02/01/17 18:16 DC 02/01/17 17:37 999 MLS/HR Insulin Human Regular (novoLIN-R U-100 PER UNIT) 5 units NOW STAT IV 02/01/17 17:16 02/01/17 17:19 DC 02/01/17 17:35 5 UNITS Propranolol HCl (Inderal Tab) 10 mg NOW ONCE PO 02/01/17 17:45 02/01/17 17:46 DC 02/01/17 18:09 10 MG Metformin HCl (Glucophage Tab) 1,000 mg NOW STAT PO 02/01/17 17:40 02/01/17 17:41 DC 02/01/17 18:09 1,000 MG Cholecalciferol (Vitamin D Tab) 4,000 inter.unit DAILY PO 02/02/17 09:00 03/04/17 08:59 02/06/17 08:21 4,000 INTER.UNIT Fenofibrate (Tricor Tab) 145 mg DAILY PO 02/02/17 09:00 03/04/17 08:59 02/06/17 08:20 145 MG Fluoxetine HCl (Prozac Cap) 10 mg QAM PO 02/02/17 09:00 02/02/17 14:46 DC 02/02/17 09:06 10 MG Fluoxetine HCl (Prozac Cap) 20 mg QAM PO 02/02/17 09:00 02/02/17 14:46 DC 02/02/17 09:06 20 MG Hydrochlorothiazide (Hydrochlorothiazide Tab) 25 mg QPM PO 02/01/17 21:00 03/03/17 20:59 02/05/17 22:09 25 MG Hydroxyzine HCl (Vistaril Tab) 75 mg HS PO 02/01/17 22:00 03/03/17 21:59 02/05/17 22:11 75 MG Lorazepam (Ativan Tab) 0.5 mg HS PO 02/01/17 21:00 03/03/17 20:59 02/05/17 22:08 0.5 MG Metformin HCl (Glucophage Tab) 1,000 mg BIDM PO 02/02/17 08:00 02/03/17 14:47 DC 02/03/17 08:44 1,000 MG Olanzapine (Zyprexa Tab) 5 mg QAM PO 02/02/17 09:00 03/04/17 08:59 02/06/17 08:21 5 MG Olanzapine (Zyprexa Tab) 10 mg HS PO 02/01/17 21:00 02/03/17 14:47 DC 02/02/17 22:19 10 MG Propranolol HCl (Inderal Tab) 10 mg TID PO 02/01/17 21:00 02/06/17 08:59 DC 02/06/17 08:20 10 MG Sitagliptin Phosphate (Januvia Tab) 100 mg DAILY PO 02/02/17 09:00 02/03/17 14:47 DC 02/03/17 08:44 100 MG Buspirone HCl (BusPAR TAB) 15 mg BID PO 02/01/17 21:00 03/03/17 20:59 02/06/17 08:19 15 MG Clonidine HCl (Catapres Tab) 0.2 mg HS PO 02/01/17 21:00 03/03/17 20:59 02/05/17 22:10 0.2 MG Insulin Glargine (Lantus Solostar Pen) 15 units HS SC 02/01/17 21:00 02/02/17 12:00 DC 02/01/17 23:10 15 UNITS Insulin Aspart (novoLOG ASPART) SLIDING SCALE ACHS SC 02/01/17 21:00 03/03/17 20:59 02/06/17 08:54 10 UNITS Insulin Aspart (novoLOG ASPART) SLIDING SCALE TODAY@0400 PA 02/02/17 04:00 02/02/17 04:01 DC 02/02/17 04:23 4 UNITS Clonidine HCl (Catapres Tab) 0.1 mg NOW ONCE PO 02/02/17 08:00 02/02/17 08:01 DC 02/02/17 09:04 0.1 MG Insulin Glargine (Lantus Solostar Pen) 10 units NOW ONCE SC 02/02/17 09:00 02/02/17 09:01 DC 02/02/17 09:07 10 UNITS Fluoxetine HCl (Prozac Cap) 40 mg QAM PO 02/03/17 09:00 03/04/17 08:59 02/06/17 08:20 40 MG Clonidine HCl (Catapres Tab) 0.1 mg [id number] PO 02/03/17 07:00 03/05/17 06:59 02/06/17 06:34 0.1 MG Fluoxetine HCl (Prozac Cap) 10 mg 1438 ONCE PO 02/02/17 14:38 02/02/17 14:56 DC 02/02/17 15:13 10 MG Docusate Sodium (coLACE CAP) 100 mg BID PO 02/02/17 22:00 03/04/17 21:59 02/06/17 08:19 100 MG Polyethylene (Miralax Powder Packet) 17 gm DAILY PO 02/03/17 09:00 02/05/17 22:00 DC 02/05/17 09:18 17 GM Insulin Degludec (Tresiba Flextouch) SEE PROTOCOL TEXT HS SQ 02/02/17 22:00 02/02/17 22:01 DC 02/02/17 22:24 15 UNITS Insulin Degludec (Tresiba Flextouch) 15 units BID SQ 02/03/17 09:00 02/03/17 10:37 DC 02/03/17 08:49 15 UNITS Insulin Degludec (Tresiba Flextouch) SEE PROTOCOL TEXT BID SQ 02/03/17 22:00 02/04/17 07:50 DC 02/03/17 21:40 15 UNITS Lisinopril (Zestril Tab) 10 mg QAM PO 02/04/17 09:00 03/06/17 08:59 02/06/17 08:21 10 MG Olanzapine (Zyprexa Tab) 15 mg HS PO 02/03/17 22:00 03/03/17 20:59 02/05/17 22:14 15 MG Docusate Sodium (coLACE CAP) 100 mg 1447 ONCE PO 02/03/17 14:47 02/03/17 14:53 DC 02/03/17 16:56 100 MG Lisinopril (Zestril Tab) 10 mg NOW ONCE PO 02/03/17 15:30 02/03/17 15:32 DC 02/03/17 16:56 10 MG Insulin Degludec (Tresiba Flextouch) 20 units BID SQ 02/04/17 09:00 02/05/17 00:00 DC 02/04/17 17:35 20 UNITS Insulin Degludec (Tresiba Flextouch) 40 units QAM SQ 02/05/17 09:00 02/06/17 08:33 DC 02/05/17 09:18 40 UNITS Metformin HCl (Glucophage Tab) 1,000 mg BIDM PO 02/05/17 10:30 03/07/17 10:29 02/06/17 08:20 1,000 MG Sitagliptin Phosphate (Januvia Tab) 100 mg DAILY PO 02/05/17 10:30 03/07/17 10:29 02/06/17 08:20 100 MG Insulin Degludec (Tresiba Flextouch) 5 units QDD SQ 02/05/17 17:45 02/05/17 17:46 DC 02/05/17 17:55 5 UNITS Insulin Degludec (Tresiba Flextouch) 45 units QAM SQ 02/06/17 09:00 03/08/17 08:59 02/06/17 08:56 45 UNITS Propranolol HCl (Inderal Tab) 5 mg NOW ONCE PO 02/06/17 09:00 02/06/17 09:08 DC 02/06/17 09:37 5 MG (Jayashree Colon CRNP) Objective Vital Signs Date Time Temp Pulse Resp B/P (MAP) Pulse Ox O2 Delivery O2 Flow Rate FiO2 02/06/17 06:45 36.4 76 16 165/90 75 174/91 02/05/17 22:19 66 16 138/81 02/05/17 14:03 70 16 169/96 (Jayashree Colon CRNP) Physical Exam Notes: General: no distress Eyes: normal inspection, PERLL Respiratory: chest non tender, clear to auscultation, normal breath sounds, no respiratory distress, no accessory muscle use Cardiac: regular rate and rhythm, no rub or gallop, no murmur, no edema, no jvd GI/: active bowel sounds, no abd pain or tenderness, soft, non distended Extremities: normal range of motion, normal strength, non tender Neuro/Psych: alert and oriented x 3, normal mood and affect Skin: normal color, dry (Jayashree Colon CRNP) Laboratory Results Last 24 Hours Test 02/05/17 12:27 02/05/17 15:59 02/05/17 22:01 02/06/17 07:46 Bedside Glucose 239 mg/dl 170 mg/dl 124 mg/dl 133 mg/dl (Jayashree Colon CRNP) Assessment and Plan Ms. Martins is a 51 year old woman here for treatment of depression and suicidal ideation. PmHx DMII, HLD, HTN, constipation, and schizoaffective disorder. Depression/schizoaffective disorder/suicidal ideation - ongoing treatment per behavioral health DMII - patient did not feel she could manage ss at home with multiple blood sugar checks and adjustments - restarted januvia and metformin and continue Trusiba - bsg ac&hs - pharmacy consult - she will need to follow outpatient for eye exam HTN - blood pressures elevated - SBP 150s - 180s - added lisinopril 10 mg daily 02/03 - increased propanolol from 10 mg TID 60 mg LA, continue clonidine Constipation - continue stool softener, prn miralax HLD - continue fenofibrate (Jayashree Colon ., RICHARD) CLASSIFIED ADVERTISING SUPERVISOR Physician Supervision Note: I interviewed and examined the patient. Discussed with Jayashree Colon CLASSIFIED ADVERTISING SUPERVISOR and agree with findings and plan as documented in the note. Any exceptions or clarifications are listed here: None Patient is doing well blood pressure sugars are reasonably controlled on oral medicines augmented by long-acting insulin her blood pressures likewise still elevated but we failed to escalate her propranolol on 04/07 and this will be done on 04/08 Patient hopefully will be able to go home on her diabetic and blood pressure regimen with close outpatient follow-up next few days Documented By: Arian Romero (Arian Romero M.D.)
[2017-02-06] MEDS ORDERED: PROPRANOLOL HCL 60 MG LA CAP PO ONE (12:22)
[2017-02-06 14:00] VITALS: Ht 144.8 cm; Wt 77.9 kg
[2017-02-06] MEDS ORDERED: PROPRANOLOL HCL 10 MG TAB PO SCH (14:00)
[2017-02-06 14:18] VITALS: BP 170/91; PULSE 76
[2017-02-06] MEDS: HYDROCHLOROTHIAZIDE 25 MG TAB PO SCH (21:58)
[2017-02-06] MEDS: LORAZEPAM 0.5 MG TAB PO SCH (22:02)
[2017-02-06] MEDS: hydrOXYzine HCL 25 MG TAB PO SCH (22:03)
[2017-02-06] MEDS: OLANZAPINE 10 MG TAB PO SCH (22:05)
[2017-02-06 22:28] VITALS: BP 108/67; PULSE 56
[2017-02-07 06:50] VITALS: BP_SYST 173; BP_SYST 183; BP_DIAS 101; BP_DIAS 103; PULSE 71; PULSE 74; TEMP 36.8
[2017-02-07] MEDS: CLONIDINE HCL 0.1 MG TAB PO SCH ×3 (07:11→21:04)
[2017-02-07] MEDS: METFORMIN HCL 500 MG TAB PO SCH ×2 (09:03→17:36)
[2017-02-07] MEDS: DOCUSATE SODIUM 100 MG CAP PO SCH ×2 (09:03→21:07)
[2017-02-07] MEDS: BusPIRone 15 MG TAB PO SCH ×2 (09:03→21:07)
[2017-02-07] MEDS: CHOLECALCIFEROL 1000 INTER.UNIT TAB PO SCH (09:04)
[2017-02-07] MEDS: SITAGLIPTIN 100 MG TAB PO SCH (09:04)
[2017-02-07] MEDS: FLUOXETINE HCL 20 MG CAP PO SCH (09:04)
[2017-02-07] MEDS: FENOFIBRATE 145 MG TAB PO SCH (09:04)
[2017-02-07] MEDS: PROPRANOLOL HCL 60 MG LA CAP PO SCH (09:04)
[2017-02-07] MEDS: OLANZAPINE 5 MG TAB PO SCH (09:05)
[2017-02-07] MEDS: INSULIN DEGLUDEC 100 UNIT/ML SQ SCH (09:22)
[2017-02-07] MEDS: LISINOPRIL 20 MG TAB PO SCH (09:22)
[2017-02-07] MEDS: INSULIN ASPART 100 UNITS/ML 3 ML PEN SC SCH ×4 (09:22→21:11)
--- NOTE | 2017-02-07 11:06 | Pharmacy Progress Note ---
Pharmacy Glycemic Short Note 2 Date of Service Feb 07, 2017. OUTPATIENT ANTIDIABETIC REGIMEN: * Tresiba 10 units SQ daily, metformin 1000 mg PO daily, and Januvia 100 mg PO daily ASSESSMENT: * Ms Martins is a 51 y/o F admitted with depressive disorder. Yesterday, Ms Martins's blood sugars ranged from 133-190 mg/dL. Her fasting today was 116 mg/dL ( decreased from 133 mg/dL yesterday). Yesterday Lantus was increased from 40 units daily to 45 units daily. Fasting blood sugars remain stable and post- prandial blood sugars do tend to rise throughout the day. Will not titrate Novolog currently... patient will be discharged on just Tresiba with no Novolog. PLAN FOR INPATIENT GLYCEMIC CONTROL: * Januvia 100 mg PO daily plus metformin 1000 mg PO BID * Basal insulin * Tresiba 45 units SQ qAM * Bolus insulin * NovoLog per scale ACHS or Q6hrs while NPO * Goal Range: Low 110 mg/dL - High 140 mg/dL * Correction Factor: 20 mg/dL/unit * Nutritional / Prandial insulin per carb ratio of 1 unit per 6 grams CHO consumed PLAN FOR DISCHARGE: * may consider starting combined therapy with Soliqua (Insulin glargine; lixisenatide) - 30 units once daily within hour prior to the first meal of the day. (max of 60 units/day) * continue therapy with metformin and januvia
--- NOTE | 2017-02-07 13:50 | Hospitalist Progress Note ---
Hospitalist Progress Note Date of Service Feb 07, 2017. (Jayashree Colon CRNP) Subjective Pt evaluation today including: conversation w/ patient, physical exam, chart review, lab review, review of inpatient medication list Ms. Martins is feeling well. She continues to have blurred vision but it has not worsened. She otherwise has no complaints ROS Constitutional: no chills, aches, sweats or fever Respiratory: no sob,cough, sputum, or wheezing Cardiac: no chest pain, palpitations, edema, orthopnea or lightheadedness GI: no abdominal pain, nausea, vomiting, diarrhea or constipation : no dysuria or hesitancy Extremities: no joint pain or weakness Skin: no rash All Other Systems: Reviewed and Negative (Jayashree Colon CRNP) Medications Medications Administered Medications (Trade) Dose Ordered Sig/Bud Route Start Time Stop Time Status Last Admin Dose Admin Insulin Human Regular (novoLIN-R U-100 PER UNIT) 10 units NOW STAT SQ 02/01/17 15:09 02/01/17 15:10 DC 02/01/17 15:09 10 UNITS Insulin Human Regular (novoLIN-R U-100 PER UNIT) 10 units NOW STAT SQ 02/01/17 16:17 02/01/17 16:18 DC 02/01/17 16:24 10 UNITS Sodium Chloride 1,000 ml @ 999 mls/hr Q1H1M STAT IV 02/01/17 17:16 02/01/17 18:16 DC 02/01/17 17:37 999 MLS/HR Insulin Human Regular (novoLIN-R U-100 PER UNIT) 5 units NOW STAT IV 02/01/17 17:16 02/01/17 17:19 DC 02/01/17 17:35 5 UNITS Propranolol HCl (Inderal Tab) 10 mg NOW ONCE PO 02/01/17 17:45 02/01/17 17:46 DC 02/01/17 18:09 10 MG Metformin HCl (Glucophage Tab) 1,000 mg NOW STAT PO 02/01/17 17:40 02/01/17 17:41 DC 02/01/17 18:09 1,000 MG Cholecalciferol (Vitamin D Tab) 4,000 inter.unit DAILY PO 02/02/17 09:00 03/04/17 08:59 02/07/17 09:04 4,000 INTER.UNIT Fenofibrate (Tricor Tab) 145 mg DAILY PO 02/02/17 09:00 03/04/17 08:59 02/07/17 09:04 145 MG Fluoxetine HCl (Prozac Cap) 10 mg QAM PO 02/02/17 09:00 02/02/17 14:46 DC 02/02/17 09:06 10 MG Fluoxetine HCl (Prozac Cap) 20 mg QAM PO 02/02/17 09:00 02/02/17 14:46 DC 02/02/17 09:06 20 MG Hydrochlorothiazide (Hydrochlorothiazide Tab) 25 mg QPM PO 02/01/17 21:00 03/03/17 20:59 02/06/17 21:58 25 MG Hydroxyzine HCl (Vistaril Tab) 75 mg HS PO 02/01/17 22:00 03/03/17 21:59 02/06/17 22:03 75 MG Lorazepam (Ativan Tab) 0.5 mg HS PO 02/01/17 21:00 03/03/17 20:59 02/06/17 22:02 0.5 MG Metformin HCl (Glucophage Tab) 1,000 mg BIDM PO 02/02/17 08:00 02/03/17 14:47 DC 02/03/17 08:44 1,000 MG Olanzapine (Zyprexa Tab) 5 mg QAM PO 02/02/17 09:00 03/04/17 08:59 02/07/17 09:05 5 MG Olanzapine (Zyprexa Tab) 10 mg HS PO 02/01/17 21:00 02/03/17 14:47 DC 02/02/17 22:19 10 MG Propranolol HCl (Inderal Tab) 10 mg TID PO 02/01/17 21:00 02/06/17 08:59 DC 02/06/17 08:20 10 MG Sitagliptin Phosphate (Januvia Tab) 100 mg DAILY PO 02/02/17 09:00 02/03/17 14:47 DC 02/03/17 08:44 100 MG Buspirone HCl (BusPAR TAB) 15 mg BID PO 02/01/17 21:00 03/03/17 20:59 02/07/17 09:03 15 MG Clonidine HCl (Catapres Tab) 0.2 mg HS PO 02/01/17 21:00 03/03/17 20:59 02/05/17 22:10 0.2 MG Insulin Glargine (Lantus Solostar Pen) 15 units HS SC 02/01/17 21:00 02/02/17 12:00 DC 02/01/17 23:10 15 UNITS Insulin Aspart (novoLOG ASPART) SLIDING SCALE ACHS SC 02/01/17 21:00 03/03/17 20:59 02/07/17 13:42 9 UNITS Insulin Aspart (novoLOG ASPART) SLIDING SCALE TODAY@0400 [place] 02/02/17 04:00 02/02/17 04:01 DC 02/02/17 04:23 4 UNITS Clonidine HCl (Catapres Tab) 0.1 mg NOW ONCE PO 02/02/17 08:00 02/02/17 08:01 DC 02/02/17 09:04 0.1 MG Insulin Glargine (Lantus Solostar Pen) 10 units NOW ONCE SC 02/02/17 09:00 02/02/17 09:01 DC 02/02/17 09:07 10 UNITS Fluoxetine HCl (Prozac Cap) 40 mg QAM PO 02/03/17 09:00 03/04/17 08:59 02/07/17 09:04 40 MG Clonidine HCl (Catapres Tab) 0.1 mg [id number] PO 02/03/17 07:00 03/05/17 06:59 02/07/17 07:11 0.1 MG Fluoxetine HCl (Prozac Cap) 10 mg 1438 ONCE PO 02/02/17 14:38 02/02/17 14:56 DC 02/02/17 15:13 10 MG Docusate Sodium (coLACE CAP) 100 mg BID PO 02/02/17 22:00 03/04/17 21:59 02/07/17 09:03 100 MG Polyethylene (Miralax Powder Packet) 17 gm DAILY PO 02/03/17 09:00 02/05/17 22:00 DC 02/05/17 09:18 17 GM Insulin Degludec (Tresiba Flextouch) SEE PROTOCOL TEXT HS SQ 02/02/17 22:00 02/02/17 22:01 DC 02/02/17 22:24 15 UNITS Insulin Degludec (Tresiba Flextouch) 15 units BID SQ 02/03/17 09:00 02/03/17 10:37 DC 02/03/17 08:49 15 UNITS Insulin Degludec (Tresiba Flextouch) SEE PROTOCOL TEXT BID SQ 02/03/17 22:00 02/04/17 07:50 DC 02/03/17 21:40 15 UNITS Lisinopril (Zestril Tab) 10 mg QAM PO 02/04/17 09:00 02/07/17 08:25 DC 02/06/17 08:21 10 MG Olanzapine (Zyprexa Tab) 15 mg HS PO 02/03/17 22:00 03/03/17 20:59 02/06/17 22:05 15 MG Docusate Sodium (coLACE CAP) 100 mg 1447 ONCE PO 02/03/17 14:47 02/03/17 14:53 DC 02/03/17 16:56 100 MG Lisinopril (Zestril Tab) 10 mg NOW ONCE PO 02/03/17 15:30 02/03/17 15:32 DC 02/03/17 16:56 10 MG Insulin Degludec (Tresiba Flextouch) 20 units BID SQ 02/04/17 09:00 02/05/17 00:00 DC 02/04/17 17:35 20 UNITS Insulin Degludec (Tresiba Flextouch) 40 units QAM SQ 02/05/17 09:00 02/06/17 08:33 DC 02/05/17 09:18 40 UNITS Metformin HCl (Glucophage Tab) 1,000 mg BIDM PO 02/05/17 10:30 03/07/17 10:29 02/07/17 09:03 1,000 MG Sitagliptin Phosphate (Januvia Tab) 100 mg DAILY PO 02/05/17 10:30 03/07/17 10:29 02/07/17 09:04 100 MG Insulin Degludec (Tresiba Flextouch) 5 units QDD SQ 02/05/17 17:45 02/05/17 17:46 DC 02/05/17 17:55 5 UNITS Insulin Degludec (Tresiba Flextouch) 45 units QAM SQ 02/06/17 09:00 03/08/17 08:59 02/07/17 09:22 45 UNITS Propranolol HCl (Inderal Tab) 5 mg NOW ONCE PO 02/06/17 09:00 02/06/17 09:08 DC 02/06/17 09:37 5 MG Propranolol HCl (Inderal La Cap) 60 mg QAM PO 02/07/17 09:00 03/09/17 08:59 02/07/17 09:04 60 MG Propranolol HCl (Inderal La Cap) 60 mg 1222 ONCE PO 02/06/17 12:22 02/06/17 12:49 DC 02/06/17 14:16 60 MG Lisinopril (Zestril Tab) 20 mg QAM PO 02/07/17 09:00 03/06/17 08:59 02/07/17 09:22 20 MG (Jayashree Colon CRNP) Objective Vital Signs Date Time Temp Pulse Resp B/P (MAP) Pulse Ox O2 Delivery O2 Flow Rate FiO2 02/07/17 06:50 36.8 71 18 183/103 74 173/101 02/06/17 22:28 56 20 108/67 02/06/17 14:18 76 18 170/91 (Jayashree Colon CRNP) Physical Exam Notes: General: no distress Eyes: normal inspection, PERLL Respiratory: chest non tender, clear to auscultation, normal breath sounds, no respiratory distress, no accessory muscle use Cardiac: regular rate and rhythm, no rub or gallop, no murmur, no edema, no jvd GI/: active bowel sounds, no abd pain or tenderness, soft, non distended Extremities: normal range of motion, normal strength, non tender Neuro/Psych: alert and oriented x 3, normal mood and affect Skin: normal color, dry (Jayashree Colon CRNP) Laboratory Results Last 24 Hours Test 02/06/17 16:45 02/06/17 21:20 02/07/17 07:17 02/07/17 12:23 Bedside Glucose 144 mg/dl 190 mg/dl 116 mg/dl 195 mg/dl (Jayashree Colon CRNP) Assessment and Plan Ms. Martins is a 51 year old woman here for treatment of depression and suicidal ideation. PmHx DMII, HLD, HTN, constipation, and schizoaffective disorder. Depression/schizoaffective disorder/suicidal ideation - ongoing treatment per behavioral health DMII - patient did not feel she could manage ss at home with multiple blood sugar checks and adjustments - continue januvia, metformin and Trusiba - bsg ac&hs - pharmacy consult - she will need to follow outpatient for eye exam HTN - blood pressures elevated - SBP 150s - 180s - increased lisinopril to 20 mg daily - increased propanolol from 10 mg TID 60 mg LA 02/06, continue clonidine Constipation - continue stool softener, prn miralax HLD - continue fenofibrate (Jayashree Colon ., RICHARD) Attending Attestation: Pt seen/examined, chart reviewed, care plan d/w RICHARD Colon. I agree w/ the lino components of her consult note. No complaints during my visit. She was attending a group counseling session. She denied any chest pain, dyspnea or abd pain. Apparently still with blurry vision but only with reading, not far distances. VSS but BPs high gen - nad heart - RRR, s1, s2, no murmur lungs - CTA b/l ext - no edema, pulses 2+ b/l A/P: T2DM - controlled with oral agents + basal insulin. HTN - uncontrolled - agree w/ increase in URSULA inhibitor. Blurry vision - needs dilated eye exam after d/c; probably needs reading glasses at minimum; no symptoms of retinal tear. Will cont to follow. Tawanda Weston MD (Tawanda Weston MD)
[2017-02-07 14:19] VITALS: BP 175/102; PULSE 70
--- NOTE | 2017-02-07 14:49 | Psychiatric Progress Notes ---
Progress Note Date of Service Feb 07, 2017. Interval History The patient is a 51yo female with history of schizoaffective disorder bipolar type currently depressed who presented to the ER on 02/01/17 brought by family after she disclosed having SI that had been culminating over the prior 1-2 weeks. She had plan for toxic ingestion of her medications. She reported anxiety and stated "I feel like my medications do not work." She endorses drinking 2 cups of wine a night to self-medicate. She slept poorly the night preceding admission. Chief Complaint "A little better". Subjective Patient was seen & assessed interval progress reviewed with Treatment Team. She says that she is feeling a little bit better in terms of her mood and says her depression is "not so bad". She is still complaining of anxiety and hoping to get better control of her that before she leaves. She says when she gets anxious she gets short of breath and elevated heart rate. She has no specific coping strategies other than to sit and wait for it to pass. She says she has never heard of mindfulness or practiced any grounding exercises and we've reviewed some simple interventions. She reports good sleep and appetite. She felt that her meeting with her mother yesterday was good, that mother was supportive. She also met with the wellness educator. She is agreeable to additional services including mobile med management and case management. She denies any suicidal or homicidal thinking today. She denies any auditory or visual hallucinations. Review of Systems Constitutional: No fever, No chills, No sweats, No weight loss, No weakness, No fatigue, No problem reported ENT: No hearing loss, No unusual epistaxis, No nasal symptoms, No sore throat, No tinnitus, No dental problems, No trouble swallowing, No problem reported Respiratory: No cough, No sputum, No wheezing, No shortness of breath, No dyspnea on exertion, No dyspnea at rest, No hemoptysis, No problem reported Cardiovascular: No chest pain, No orthopnea, No PND, No edema, No claudication , No palpitations, No problem reported Abdomen: No pain, No nausea, No vomiting, No diarrhea, No constipation, No GI bleeding, No problem reported Musculoskeletal: No joint pain, No muscle pain, No swelling, No calf pain, No problem reported Neurologic: No memory loss, No paralysis, No weakness, No numbness/tingling, No vertigo, No balance problems, No problem reported Psychiatric: + anxiety Integumentary: No rash, No itch, No new/changing skin lesions, No color change , No bleeding, No problem reported Sleep Information Total Hours of Sleep: 5.00 Meal Information Percent of Breakfast Consumed: 100 Percent of Lunch Consumed: 100 Percent of Dinner Consumed: 100 Mental Status Exam During interview pt is: alert and oriented, cooperative Appearance: appropriately dressed, other (overweight) Eye contact is: good (staring) Motor behavior is: steady gait & station, no abnormal motor movements Speech: normal in rate, rhythm & volume Affect: mood congruent, depressed, constricted Mood is: depressed, anxious Thought process: goal directed, concrete Thought content: reality based without delusions, hopelessness, worthlessness Suicidal thought are: denied Homicidal thoughts are: denied Hallucinations: denies auditory, denies visual Cognition: language grossly intact Insight: fair Judgement: fair Impression The patient reports her mood is improving with medications but reports ongoing anxiety. She apparently has no coping strategies for times of anxiety and we reviewed some mindfulness/grounding exercises. We will continue her current medications. Family meeting was accomplished yesterday and she will be returning home with her mother. If progress continues we anticipate we will be able to discharge in the next day or 2. Plan (1) Schizoaffective disorder, bipolar type 02/02/17 -Patient has a history of refractory schizoaffective disorder bipolar type. She has had multiple medication trials in the past. At this time given her accelerating diabetes and that she is overweight we will not increase her Zyprexa -Will hold Seroquel and defer to obtaining prior history prior to combining 2 atypicals -Consider Saphris if she has not had a trial, Abilify may be an additional option, will need to get outpatient records -We will optimize her Prozac from 30 mg to 40 mg watching mood stability -Continue her buspirone and her Vistaril when necessary for now -Group, sanchez milieu and safety checks 02/03/17 - will get med list from [facility] for past several years to see what she has been on given clinics are closed until tomorrow to inform med choice - for today will attempt to increase Zyprexa to 15mg/hs (continuing her 5mg/AM) to target residual psychosis, but 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 02/04 - Get outpatient records from [facility] and the [facility] to clarify previous medication trials. - Continue olanzapine 5 mg every morning and 15 mg daily at bedtime. Reviewed most recent fasting glucose and lipid profile from 05/25/2016. - Scheduled family meeting with mother. - Referred for increased outpatient services, including case management and psych rehabilitation. 02/05 - Continue current meds. Encourage patient to work on healthy coping skills and discharge safety plan. Discussed keeping meds locked and dispensing to weekly pillbox to limit access to large amounts of meds. - Family meeting with mother tomorrow - will need to share safety plan. 02/06 - Patient would benefit from continued work on coping skills and a robust safety plan, to include securing all medications that she will not have access to large amounts of pills (as her suicide plan is to overdose), and if her mother is not able to assist with this, consider a referral for mobile med management. - Explore ways to increase outpatient supports, such as referral for case management and psych rehabilitation. 02/07 Continue current medications -Assist the patient to learn and explore mindfulness exercises - (2) Diabetes 02/02/17 -Continue to Tresiba brought in by patient's family, metformin 1000 mg by mouth twice a day,sitagliptin, and appreciate pharmacy glycemic control assistance 02/03/17 - questioning if insulin is a good option for this individual, contacting IM for HTN and asking regarding diabetes management options as well. 02/04 - Appreciate diabetic pharmacist and hospitalist's recommendations. She will need to follow-up for an outpatient eye exam. Januvia and metformin have been discontinued to simplify her regimen, Tresiba increased to 20 units bid, and continued Novolog. 02/05 - Appreciate Dr. Romero's recommendations. Patient with limited cognitive ability, would benefit from a simplified regimen, and we will ask the wellness educator to meet with her and her mother together to review diabetes education information. (3) Hyperlipidemia Continue fenofibrate Last lipids in the [facility] record drawn 05/25/2016 total cholesterol 213, triglycerides 232, LDL 126, HDL 41 (4) Hypertension 02/02/17 -Continue lisinopril hydrochlorothiazide and Inderal and clonidine 02/03/17 - ongoing significant HTN despite giving home meds, will request IM consultation for assistance. 02/04 - Appreciate Dr. Burgos' recommendations - lisinopril 10 mg added to propanolol and clonidine. 02/05 - Appreciate Dr. Romero's recommendations; propanolol increased as she remains hypertensive. (5) Constipation Avoid senna or other stimulating laxity does We'll give Miralax for 3 days consistently holding for any loose bowel movements and start Colace 100 mg by mouth twice a day to continue long-standing 02/05 - Having regular BMs. Discharge / Aftercare Planning Primary Care Physician: Name: RICHARD Avelar Psychiatrist: Name: Sanjuanita Reese PA-C [facility] Date of Appointment: Feb 18, 2017 Time of Appointment: 1:00pm Therapist: Name: Carleen SCOTT -[facility] Date of Appointment: Feb 13, 2017 Time of Appointment: 12:30pm Automatic Cigar Wrapper Tender: Name: [facility] Partial or Psych Rehab: Name: [facility] Psych Rehab Date of Appointment: Feb 11, 2017 Time of Appointment: 8:30am Appointment Notes: Your ride your will be there by 7:00am.Bring a bag lunch Visit Code E&M Code: 53134 Inventory Assets Strengths: Willingness for care Supportive family Needs: Stabilization of her safety, addressing substance use Risk Factors Assessment : Yes /single/: Yes Health problems: Yes Mental Health Diagnoses: Yes Substance use disorders: Yes Previous attempt: Yes Family history of suicide: Yes Previous psychiatric stay: Yes Hopelessness: Yes Smoker: No Protective Factors Assessment Mosque beliefs: No : No Responsible for young children: No Employed: No Stable relationships: Yes Supportive family: Yes Good rapport with provider: Yes Data Vital Signs Last 24 Hrs: Date Time Temp Pulse Resp B/P (MAP) Pulse Ox O2 Delivery O2 Flow Rate FiO2 02/07/17 14:19 70 16 175/102 02/07/17 06:50 36.8 71 18 183/103 74 173/101 02/06/17 22:28 56 20 108/67 Meds Administered Last 24 Hrs: Meds Administered (Past 24Hrs) Medications (Trade) Dose Ordered Sig/Bud Route Start Time Stop Time Status Last Admin Dose Admin Insulin Degludec (Tresiba Flextouch) 5 units QDD SQ 02/05/17 17:45 02/05/17 17:46 DC 02/05/17 17:55 5 UNITS Insulin Degludec (Tresiba Flextouch) 45 units QAM SQ 02/06/17 09:00 03/08/17 08:59 02/07/17 09:22 45 UNITS Propranolol HCl (Inderal Tab) 5 mg NOW ONCE PO 02/06/17 09:00 02/06/17 09:08 DC 02/06/17 09:37 5 MG Propranolol HCl (Inderal La Cap) 60 mg QAM PO 02/07/17 09:00 03/09/17 08:59 02/07/17 09:04 60 MG Propranolol HCl (Inderal La Cap) 60 mg 1222 ONCE PO 02/06/17 12:22 02/06/17 12:49 DC 02/06/17 14:16 60 MG Lisinopril (Zestril Tab) 20 mg QAM PO 02/07/17 09:00 03/06/17 08:59 02/07/17 09:22 20 MG Lab Results Last 24 Hrs: Last 24 Hours Test 02/06/17 16:45 02/06/17 21:20 02/07/17 07:17 02/07/17 12:23 Bedside Glucose 144 mg/dl 190 mg/dl 116 mg/dl 195 mg/dl
[2017-02-07 21:04] VITALS: BP 127/77; PULSE 60
[2017-02-07] MEDS: OLANZAPINE 10 MG TAB PO SCH (21:06)
[2017-02-07] MEDS: hydrOXYzine HCL 25 MG TAB PO SCH (21:06)
[2017-02-07] MEDS: LORAZEPAM 0.5 MG TAB PO SCH (21:06)
[2017-02-07] MEDS: HYDROCHLOROTHIAZIDE 25 MG TAB PO SCH (21:07)
[2017-02-07 22:00] VITALS: BP 127/77; PULSE 60; PULSE 74
[2017-02-08 06:47] VITALS: BP_SYST 163; BP_SYST 168; BP_DIAS 85; BP_DIAS 94; PULSE 71; PULSE 74; TEMP 36.7
[2017-02-08] MEDS: CLONIDINE HCL 0.1 MG TAB PO SCH ×3 (07:19→22:19)
[2017-02-08] MEDS: BusPIRone 15 MG TAB PO SCH ×2 (08:49→22:19)
[2017-02-08] MEDS: DOCUSATE SODIUM 100 MG CAP PO SCH ×2 (08:49→22:19)
[2017-02-08] MEDS: PROPRANOLOL HCL 60 MG LA CAP PO SCH (08:50)
[2017-02-08] MEDS: FENOFIBRATE 145 MG TAB PO SCH (08:50)
[2017-02-08] MEDS: FLUOXETINE HCL 20 MG CAP PO SCH (08:50)
[2017-02-08] MEDS: METFORMIN HCL 500 MG TAB PO SCH ×2 (08:50→17:52)
[2017-02-08] MEDS: SITAGLIPTIN 100 MG TAB PO SCH (08:50)
[2017-02-08] MEDS: LISINOPRIL 20 MG TAB PO SCH (08:51)
[2017-02-08] MEDS: CHOLECALCIFEROL 1000 INTER.UNIT TAB PO SCH (08:51)
[2017-02-08] MEDS: OLANZAPINE 5 MG TAB PO SCH (08:51)
[2017-02-08] MEDS: INSULIN ASPART 100 UNITS/ML 3 ML PEN SC SCH ×4 (09:30→22:23)
[2017-02-08] MEDS: INSULIN DEGLUDEC 100 UNIT/ML SQ SCH (09:30)
[2017-02-08] MEDS ORDERED: TRAZODONE HCL 50 MG TAB PO PRN (10:30)
--- NOTE | 2017-02-08 12:12 | Psychiatric Progress Notes ---
Progress Note Date of Service Feb 08, 2017. Interval History The patient is a 51yo female with history of schizoaffective disorder bipolar type currently depressed who presented to the ER on 02/01/17 brought by family after she disclosed having SI that had been culminating over the prior 1-2 weeks. She had plan for toxic ingestion of her medications. She reported anxiety and stated "I feel like my medications do not work." She endorses drinking 2 cups of wine a night to self-medicate. She slept poorly the night preceding admission. Chief Complaint "I'm pretty good". Subjective Patient was seen & assessed interval progress reviewed with Treatment Team. - continued monitoring of blood pressures - has met with consumer educator, blood glucose trending in the low 100's - denies further SI Pt seen today along with Bonny Daniels PA-C. Pt reports she doesn't "feel as depressed as before". Pt states she feels like she is doing much better, but reports her sleep was not good yesterday. She reports she has been having difficulty falling asleep due to racing thoughts and not feeling at night despite not napping during the day. She is currently taking Vistaril 75mg to help her sleep at night and has still been having difficulty. She reports she has not had suicidal thoughts in "a couple days". Pt and her mother have both met with a diabetic education while on the unit and she feels optimistic about the education. She reports being pleased that her blood sugar has improved lately. Appetite continues to remain consistent for her. Review of Systems Psych: denies symptoms other than stated above Constitutional: ongoing blurry vision Cardiovascular: denied GI: denied Neurologic: denied Remainder of 10 body systems also reviewed and denied other than noted above. Sleep Information Total Hours of Sleep: 6.00 Meal Information Percent of Breakfast Consumed: 100 Percent of Lunch Consumed: 100 Percent of Dinner Consumed: 100 Mental Status Exam During interview pt is: alert and oriented, cooperative Appearance: appropriately dressed, other (overweight) Eye contact is: good (staring) Motor behavior is: steady gait & station, no abnormal motor movements Speech: normal in rate, rhythm & volume Affect: mood congruent, flat Mood is: other ("pretty good") Thought process: goal directed, concrete Thought content: reality based without delusions Suicidal thought are: denied Homicidal thoughts are: denied Hallucinations: denies auditory, denies visual Cognition: language grossly intact Insight: fair Judgement: fair Impression The patient reports her mood is improving with medications but reports ongoing anxiety. She expresses plans to read or listen to music when anxiety or suicidal thoughts occur. Reviewed with patient list of names in her safety plan to call if she is feeling overwhelmed. Discussed medication options to help with sleep. Pt continues to show improvement in mood and anxiety. Plan (1) Schizoaffective disorder, bipolar type 02/02/17 -Patient has a history of refractory schizoaffective disorder bipolar type. She has had multiple medication trials in the past. At this time given her accelerating diabetes and that she is overweight we will not increase her Zyprexa -Will hold Seroquel and defer to obtaining prior history prior to combining 2 atypicals -Consider Saphris if she has not had a trial, Abilify may be an additional option, will need to get outpatient records -We will optimize her Prozac from 30 mg to 40 mg watching mood stability -Continue her buspirone and her Vistaril when necessary for now -Group, sanchez milieu and safety checks 02/03/17 - will get med list from [facility] for past several years to see what she has been on given clinics are closed until tomorrow to inform med choice - for today will attempt to increase Zyprexa to 15mg/hs (continuing her 5mg/AM) to target residual psychosis, but this may not be best group home solution given 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 02/04 - Get outpatient records from [facility] and the [facility] to clarify previous medication trials. - Continue olanzapine 5 mg every morning and 15 mg daily at bedtime. Reviewed most recent fasting glucose and lipid profile from 05/25/2016. - Scheduled family meeting with mother. - Referred for increased outpatient services, including case management and psych rehabilitation. 02/05 - Continue current meds. Encourage patient to work on healthy coping skills and discharge safety plan. Discussed keeping meds locked and dispensing to weekly pillbox to limit access to large amounts of meds. - Family meeting with mother tomorrow - will need to share safety plan. 02/06 - Patient would benefit from continued work on coping skills and a robust safety plan, to include securing all medications that she will not have access to large amounts of pills (as her suicide plan is to overdose), and if her mother is not able to assist with this, consider a referral for mobile med management. - Explore ways to increase outpatient supports, such as referral for case management and psych rehabilitation. 02/07 Continue current medications -Assist the patient to learn and explore mindfulness exercises - 02/08 - Describes difficulty sleeping with Vistaril 75mg. Will try Trazodone 100mg this PM and note any changes. Pt given 50mg Trazodone PRN if ongoing sleep difficulty during the evening. Plan is to given prn Trazodone prior to offering prn Ativan for sleep. - Pt continues to show improvement on 20mg daily total of Zyprexa. - Plan for follow up with PCP, will likely need ophthalmology referral for blurred vision with history of diabetes. - Pt continues to show improvement and will likely be ready for discharge in the next 1-2 days. Pt planning to attend psych rehab on Saturday, so could go Saturday if no worsening during the evening. (2) Diabetes 02/02/17 -Continue to Tresiba brought in by patient's family, metformin 1000 mg by mouth twice a day,sitagliptin, and appreciate pharmacy glycemic control assistance 02/03/17 - questioning if insulin is a good option for this individual, contacting IM for HTN and asking regarding diabetes management options as well. 02/04 - Appreciate diabetic pharmacist and hospitalist's recommendations. She will need to follow-up for an outpatient eye exam. Januvia and metformin have been discontinued to simplify her regimen, Tresiba increased to 20 units bid, and continued Novolog. 02/05 - Appreciate Dr. Romero's recommendations. Patient with limited cognitive ability, would benefit from a simplified regimen, and we will ask the consumer educator to meet with her and her mother together to review diabetes education information. (3) Hyperlipidemia Continue fenofibrate Last lipids in the [facility] record drawn 05/25/2016 total cholesterol 213, triglycerides 232, LDL 126, HDL 41 (4) Hypertension 02/02/17 -Continue lisinopril hydrochlorothiazide and Inderal and clonidine 02/03/17 - ongoing significant HTN despite giving home meds, will request IM consultation for assistance. 02/04 - Appreciate Dr. Burgos' recommendations - lisinopril 10 mg added to propanolol and clonidine. 02/05 - Appreciate Dr. Romero's recommendations; propanolol increased as she remains hypertensive. (5) Constipation Avoid senna or other stimulating laxity does We'll give Miralax for 3 days consistently holding for any loose bowel movements and start Colace 100 mg by mouth twice a day to continue long-standing 02/05 - Having regular BMs. Discharge / Aftercare Planning Primary Care Physician: Name: RICHARD Avelar Psychiatrist: Name: Sanjuanita Reese PA-C [facility] Date of Appointment: Feb 18, 2017 Time of Appointment: 1:00pm Therapist: Name: Carleen Keita [facility] Date of Appointment: Feb 13, 2017 Time of Appointment: 12:30pm Counter Cutter: Name: Alexandru [facility] Partial or Psych Rehab: Name: [facility] Date of Appointment: Feb 11, 2017 Time of Appointment: 8:30am Appointment Notes: Your ride your will be there by 7:00am.Bring a bag lunch Other: Name of Appointment #1: [facility]Tejal Curran RN Date of Appointment #1: Feb 11, 2017 Time of Appointment #1: 1:00am Appointment #1 Notes: They will call her at home Saturday morning Visit Code E&M Code: 79248 Inventory Assets Strengths: Willingness for care Supportive family Needs: Stabilization of her safety, addressing substance use Risk Factors Assessment : Yes /single/: Yes Health problems: Yes Mental Health Diagnoses: Yes Substance use disorders: Yes Previous attempt: Yes Family history of suicide: Yes Previous psychiatric stay: Yes Hopelessness: Yes Smoker: No Protective Factors Assessment Jain beliefs: No : No Responsible for young children: No Employed: No Stable relationships: Yes Supportive family: Yes Good rapport with provider: Yes Data Vital Signs Last 24 Hrs: Date Time Temp Pulse Resp B/P (MAP) Pulse Ox O2 Delivery O2 Flow Rate FiO2 02/08/17 06:47 36.7 74 17 163/94 71 168/85 02/07/17 22:00 60 16 127/77 74 02/07/17 21:04 60 16 127/77 02/07/17 14:19 70 16 175/102 Meds Administered Last 24 Hrs: Meds Administered (Past 24Hrs) Medications (Trade) Dose Ordered Sig/Bud Route Start Time Stop Time Status Last Admin Dose Admin Propranolol HCl (Inderal La Cap) 60 mg QAM PO 02/07/17 09:00 03/09/17 08:59 02/08/17 08:50 60 MG Propranolol HCl (Inderal La Cap) 60 mg 1222 ONCE PO 02/06/17 12:22 02/06/17 12:49 DC 02/06/17 14:16 60 MG Lisinopril (Zestril Tab) 20 mg QAM PO 02/07/17 09:00 03/06/17 08:59 02/08/17 08:51 20 MG Lab Results Last 24 Hrs: Last 24 Hours Test 02/07/17 12:23 02/07/17 16:06 02/07/17 20:34 02/08/17 08:01 Bedside Glucose 195 mg/dl 99 mg/dl 146 mg/dl 114 mg/dl
[2017-02-08 13:24] VITALS: BP 181/99; PULSE 70
--- NOTE | 2017-02-08 14:06 | Hospitalist Progress Note ---
Hospitalist Progress Note Date of Service Feb 08, 2017. (Jayashree Colon CRNP) Subjective Pt evaluation today including: conversation w/ patient, physical exam, chart review, lab review, review of inpatient medication list Voiding: no voiding problems Ms. Martins feels well today overall. She continues to have blurred vision however it has not worsened. Her blood sugars have stayed below 200 for the last two days and range from 1teens to 190s, which is an improvement. Her blood pressure is still a bit high SBP 160s this am. ROS Constitutional: no chills, aches, sweats or fever Respiratory: no sob,cough, sputum, or wheezing Cardiac: no chest pain, palpitations, edema, orthopnea or lightheadedness GI: no abdominal pain, nausea, vomiting, diarrhea or constipation : no dysuria or hesitancy Extremities: no joint pain or weakness Skin: no rash All Other Systems: Reviewed and Negative (Jayashree Colon CRNP) Medications Medications Administered Medications (Trade) Dose Ordered Sig/Bud Route Start Time Stop Time Status Last Admin Dose Admin Insulin Human Regular (novoLIN-R U-100 PER UNIT) 10 units NOW STAT SQ 02/01/17 15:09 02/01/17 15:10 DC 02/01/17 15:09 10 UNITS Insulin Human Regular (novoLIN-R U-100 PER UNIT) 10 units NOW STAT SQ 02/01/17 16:17 02/01/17 16:18 DC 02/01/17 16:24 10 UNITS Sodium Chloride 1,000 ml @ 999 mls/hr Q1H1M STAT IV 02/01/17 17:16 02/01/17 18:16 DC 02/01/17 17:37 999 MLS/HR Insulin Human Regular (novoLIN-R U-100 PER UNIT) 5 units NOW STAT IV 02/01/17 17:16 02/01/17 17:19 DC 02/01/17 17:35 5 UNITS Propranolol HCl (Inderal Tab) 10 mg NOW ONCE PO 02/01/17 17:45 02/01/17 17:46 DC 02/01/17 18:09 10 MG Metformin HCl (Glucophage Tab) 1,000 mg NOW STAT PO 02/01/17 17:40 02/01/17 17:41 DC 02/01/17 18:09 1,000 MG Acetaminophen (Tylenol Tab) 650 mg Q4H PRN PO 02/01/17 20:00 03/03/17 19:59 02/07/17 22:54 650 MG Cholecalciferol (Vitamin D Tab) 4,000 inter.unit DAILY PO 02/02/17 09:00 03/04/17 08:59 02/08/17 08:51 4,000 INTER.UNIT Fenofibrate (Tricor Tab) 145 mg DAILY PO 02/02/17 09:00 03/04/17 08:59 02/08/17 08:50 145 MG Fluoxetine HCl (Prozac Cap) 10 mg QAM PO 02/02/17 09:00 02/02/17 14:46 DC 02/02/17 09:06 10 MG Fluoxetine HCl (Prozac Cap) 20 mg QAM PO 02/02/17 09:00 02/02/17 14:46 DC 02/02/17 09:06 20 MG Hydrochlorothiazide (Hydrochlorothiazide Tab) 25 mg QPM PO 02/01/17 21:00 02/08/17 10:33 DC 02/07/17 21:07 25 MG Hydroxyzine HCl (Vistaril Tab) 75 mg HS PO 02/01/17 22:00 02/08/17 10:33 DC 02/07/17 21:06 75 MG Lorazepam (Ativan Tab) 0.5 mg HS PO 02/01/17 21:00 02/08/17 10:33 DC 02/07/17 21:06 0.5 MG Metformin HCl (Glucophage Tab) 1,000 mg BIDM PO 02/02/17 08:00 02/03/17 14:47 DC 02/03/17 08:44 1,000 MG Olanzapine (Zyprexa Tab) 5 mg QAM PO 02/02/17 09:00 03/04/17 08:59 02/08/17 08:51 5 MG Olanzapine (Zyprexa Tab) 10 mg HS PO 02/01/17 21:00 02/03/17 14:47 DC 02/02/17 22:19 10 MG Propranolol HCl (Inderal Tab) 10 mg TID PO 02/01/17 21:00 02/06/17 08:59 DC 02/06/17 08:20 10 MG Sitagliptin Phosphate (Januvia Tab) 100 mg DAILY PO 02/02/17 09:00 02/03/17 14:47 DC 02/03/17 08:44 100 MG Buspirone HCl (BusPAR TAB) 15 mg BID PO 02/01/17 21:00 03/03/17 20:59 02/08/17 08:49 15 MG Clonidine HCl (Catapres Tab) 0.2 mg HS PO 02/01/17 21:00 03/03/17 20:59 02/05/17 22:10 0.2 MG Insulin Glargine (Lantus Solostar Pen) 15 units HS SC 02/01/17 21:00 02/02/17 12:00 DC 02/01/17 23:10 15 UNITS Insulin Aspart (novoLOG ASPART) SLIDING SCALE ACHS MI 02/01/17 21:00 03/03/17 20:59 02/08/17 13:10 10 UNITS Insulin Aspart (novoLOG ASPART) SLIDING SCALE TODAY@0400 MI 02/02/17 04:00 02/02/17 04:01 DC 02/02/17 04:23 4 UNITS Clonidine HCl (Catapres Tab) 0.1 mg NOW ONCE PO 02/02/17 08:00 02/02/17 08:01 DC 02/02/17 09:04 0.1 MG Insulin Glargine (Lantus Solostar Pen) 10 units NOW ONCE MI 02/02/17 09:00 02/02/17 09:01 DC 02/02/17 09:07 10 UNITS Fluoxetine HCl (Prozac Cap) 40 mg QAM PO 02/03/17 09:00 03/04/17 08:59 02/08/17 08:50 40 MG Clonidine HCl (Catapres Tab) 0.1 mg FIO642 PO 02/03/17 07:00 03/05/17 06:59 02/08/17 13:31 0.1 MG Fluoxetine HCl (Prozac Cap) 10 mg 1438 ONCE PO 02/02/17 14:38 02/02/17 14:56 DC 02/02/17 15:13 10 MG Docusate Sodium (coLACE CAP) 100 mg BID PO 02/02/17 22:00 03/04/17 21:59 02/08/17 08:49 100 MG Polyethylene (Miralax Powder Packet) 17 gm DAILY PO 02/03/17 09:00 02/05/17 22:00 DC 02/05/17 09:18 17 GM Insulin Degludec (Tresiba Flextouch) SEE PROTOCOL TEXT HS SQ 02/02/17 22:00 02/02/17 22:01 DC 02/02/17 22:24 15 UNITS Insulin Degludec (Tresiba Flextouch) 15 units BID SQ 02/03/17 09:00 02/03/17 10:37 DC 02/03/17 08:49 15 UNITS Insulin Degludec (Tresiba Flextouch) SEE PROTOCOL TEXT BID SQ 02/03/17 22:00 02/04/17 07:50 DC 02/03/17 21:40 15 UNITS Lisinopril (Zestril Tab) 10 mg QAM PO 02/04/17 09:00 02/07/17 08:25 DC 02/06/17 08:21 10 MG Olanzapine (Zyprexa Tab) 15 mg HS PO 02/03/17 22:00 03/03/17 20:59 02/07/17 21:06 15 MG Docusate Sodium (coLACE CAP) 100 mg 1447 ONCE PO 02/03/17 14:47 02/03/17 14:53 DC 02/03/17 16:56 100 MG Lisinopril (Zestril Tab) 10 mg NOW ONCE PO 02/03/17 15:30 02/03/17 15:32 DC 02/03/17 16:56 10 MG Insulin Degludec (Tresiba Flextouch) 20 units BID SQ 02/04/17 09:00 02/05/17 00:00 DC 02/04/17 17:35 20 UNITS Insulin Degludec (Tresiba Flextouch) 40 units QAM SQ 02/05/17 09:00 02/06/17 08:33 DC 02/05/17 09:18 40 UNITS Metformin HCl (Glucophage Tab) 1,000 mg BIDM PO 02/05/17 10:30 03/07/17 10:29 02/08/17 08:50 1,000 MG Sitagliptin Phosphate (Januvia Tab) 100 mg DAILY PO 02/05/17 10:30 03/07/17 10:29 02/08/17 08:50 100 MG Insulin Degludec (Tresiba Flextouch) 5 units QDD SQ 02/05/17 17:45 02/05/17 17:46 DC 02/05/17 17:55 5 UNITS Insulin Degludec (Tresiba Flextouch) 45 units QAM SQ 02/06/17 09:00 03/08/17 08:59 02/08/17 09:30 45 UNITS Propranolol HCl (Inderal Tab) 5 mg NOW ONCE PO 02/06/17 09:00 02/06/17 09:08 DC 02/06/17 09:37 5 MG Propranolol HCl (Inderal La Cap) 60 mg QAM PO 02/07/17 09:00 03/09/17 08:59 02/08/17 08:50 60 MG Propranolol HCl (Inderal La Cap) 60 mg 1222 ONCE PO 02/06/17 12:22 02/06/17 12:49 DC 02/06/17 14:16 60 MG Lisinopril (Zestril Tab) 20 mg QAM PO 02/07/17 09:00 03/06/17 08:59 02/08/17 08:51 20 MG (Jayashree Colon CRNP) Objective Vital Signs Date Time Temp Pulse Resp B/P (MAP) Pulse Ox O2 Delivery O2 Flow Rate FiO2 02/08/17 13:24 70 16 181/99 02/08/17 06:47 36.7 74 17 163/94 71 168/85 02/07/17 22:00 60 16 127/77 74 02/07/17 21:04 60 16 127/77 02/07/17 14:19 70 16 175/102 (Jayashree Colon CRNP) Physical Exam Notes: General: no distress Eyes: normal inspection, PERLL Respiratory: chest non tender, clear to auscultation, normal breath sounds, no respiratory distress, no accessory muscle use Cardiac: regular rate and rhythm, no rub or gallop, no murmur, no edema, no jvd GI/: active bowel sounds, no abd pain or tenderness, soft, non distended Extremities: normal range of motion, normal strength, non tender Neuro/Psych: alert and oriented x 3, flat affect Skin: normal color, dry (Jayashree Colon CRNP) Laboratory Results Last 24 Hours Test 02/07/17 16:06 02/07/17 20:34 02/08/17 08:01 02/08/17 12:07 Bedside Glucose 99 mg/dl 146 mg/dl 114 mg/dl 165 mg/dl (Jayahsree Colon CRNP) Assessment and Plan Ms. Martins is a 51 year old woman here for treatment of depression and suicidal ideation. PmHx DMII, HLD, HTN, constipation, and schizoaffective disorder. Depression/schizoaffective disorder/suicidal ideation - ongoing treatment per behavioral health - patient states that she is likely going home tomorrow DMII - patient did not feel she could manage ss at home with multiple blood sugar checks and adjustments - continue januvia, metformin and Trusiba - bsgs under good control with this regimen - bsg ac&hs - pharmacy consult - she will need to follow outpatient for eye exam HTN - blood pressures elevated - SBP 160s - increased lisinopril to 20 mg daily 02/07 - increased propanolol from 10 mg TID 60 mg LA 02/06, continue clonidine - would hold off on increasing medications again today Constipation - continue stool softener, prn miralax HLD - continue fenofibrate (Jayashree Colon CRNP) Attending Attestation: Pt seen/examined, chart reviewed, care plan d/w RICHARD Colon. I agree w/ the lino components of her consult note. Pt reports "my blood pressure is always high when I go to the doctor." Dx 2 years ago. Mother had HTN. +snoring and "loud." VSS but BPs high gen - nad heart - RRR, s1, s2, no murmur lungs - CTA b/l ext - no edema, pulses 2+ b/l A/P: T2DM - controlled with oral agents + basal insulin. HTN - uncontrolled - agree we should NOT increase meds today; needs sleep study to r/o DARIUSZ; check renin/mayte level in AM; BMP in AM as well Blurry vision - needs dilated eye exam after d/c; probably needs reading glasses at minimum; no symptoms of retinal tear. Will cont to follow. Tawanda Weston MD (Tawanda Weston MD)
[2017-02-08] MEDS ORDERED: HYDROCHLOROTHIAZIDE 25 MG TAB PO SCH (17:00)
[2017-02-08] MEDS ORDERED: HYDROCHLOROTHIAZIDE 25 MG TAB PO PRN (21:00)
[2017-02-08] MEDS ORDERED: TRAZODONE HCL 100 MG TAB PO SCH (22:00)
[2017-02-08] MEDS ORDERED: LORAZEPAM 0.5 MG TAB PO SCH (22:00)
[2017-02-08 22:13] VITALS: BP 148/90; PULSE 69
[2017-02-08] MEDS: OLANZAPINE 10 MG TAB PO SCH (22:20)
[2017-02-09 06:37] VITALS: BP 155/84; PULSE 68; PULSE 77; TEMP 36.8
[2017-02-09] MEDS: CLONIDINE HCL 0.1 MG TAB PO SCH (06:53)
[2017-02-09] MEDS: BusPIRone 15 MG TAB PO SCH (08:42)
[2017-02-09] MEDS: DOCUSATE SODIUM 100 MG CAP PO SCH (08:42)
[2017-02-09 08:43] LABS: BUN/CREATININE RATIO 29.1 (10-20); CALCIUM 10.2 mg/dl (8.5-10.1); CREATININE 0.95 mg/dl (0.60-1.20); POTASSIUM 3.6 mmol/L (3.5-5.1)
[2017-02-09] MEDS: PROPRANOLOL HCL 60 MG LA CAP PO SCH (08:43)
[2017-02-09] MEDS: METFORMIN HCL 500 MG TAB PO SCH (08:43)
[2017-02-09] MEDS: OLANZAPINE 5 MG TAB PO SCH (08:43)
[2017-02-09] MEDS: CHOLECALCIFEROL 1000 INTER.UNIT TAB PO SCH (08:43)
[2017-02-09] MEDS: LISINOPRIL 20 MG TAB PO SCH (08:44)
[2017-02-09] MEDS: SITAGLIPTIN 100 MG TAB PO SCH (08:44)
[2017-02-09] MEDS: FENOFIBRATE 145 MG TAB PO SCH (08:44)
[2017-02-09] MEDS: FLUOXETINE HCL 20 MG CAP PO SCH (08:44)
[2017-02-09] MEDS: INSULIN DEGLUDEC 100 UNIT/ML SQ SCH (08:46)
[2017-02-09] MEDS: INSULIN ASPART 100 UNITS/ML 3 ML PEN SC SCH (08:54)
--- NOTE | 2017-02-09 09:37 | Hospitalist Progress Note ---
Hospitalist Progress Note Date of Service Feb 09, 2017. (Beatrice Prieto ., PA-C) Subjective Pt evaluation today including: conversation w/ patient, physical exam, lab review, review of inpatient medication list Voiding: no voiding problems Patient sitting at bedside. Eating and drinking OK. Discussed logging BPs and sugar levels w/ PCP f/u. Discussed medication changes. +blurry vision- non-worsening- discussed outpatient eye exam. +Snoring- discussed outpatient sleep study. Patient denies any fever, chills, sweats, lightheadedness, dizziness, CP, palpitations, edema, SOB, wheezing, cough, abdominal pain, nausea, vomiting, diarrhea, urinary symptoms, melena, numbness/tingling, weakness, muscle/joint pain, anxiety/depression, active bleeding, or new skin discoloration/changes. (Beatrice Prieto ., PA-C) Medications Current Inpatient Medications Medications (Trade) Dose Ordered Sig/Bud Route Start Time Stop Time Status Last Admin Dose Admin Acetaminophen (Tylenol Tab) 650 mg Q4H PRN PO 02/01/17 20:00 03/03/17 19:59 02/07/17 22:54 650 MG Bismuth Subsalicylate (Kaopectate Liqd) 15 ml PRN PRN PO 02/01/17 20:00 03/03/17 19:59 Al Hydroxide/Mg Hydroxide (Maalox Susp) 30 ml Q4H PRN PO 02/01/17 20:00 03/03/17 19:59 Magnesium Hydroxide (Milk Of Magnesia Susp) 30 ml DAILY PRN PO 02/01/17 20:00 03/03/17 19:59 Sodium Chloride ([place] Nasal [place]) PRN PRN NA 02/01/17 20:00 03/03/17 19:59 Cholecalciferol (Vitamin D Tab) 4,000 inter.unit DAILY PO 02/02/17 09:00 03/04/17 08:59 02/09/17 08:43 4,000 INTER.UNIT Fenofibrate (Tricor Tab) 145 mg DAILY PO 02/02/17 09:00 03/04/17 08:59 02/09/17 08:44 145 MG Olanzapine (Zyprexa Tab) 5 mg QAM PO 02/02/17 09:00 03/04/17 08:59 02/09/17 08:43 5 MG Buspirone HCl (BusPAR TAB) 15 mg BID PO 02/01/17 21:00 03/03/17 20:59 02/09/17 08:42 15 MG Clonidine HCl (Catapres Tab) 0.2 mg HS PO 02/01/17 21:00 03/03/17 20:59 02/08/17 22:19 0.2 MG Miscellaneous Information (Consult Glycemic Management Pharmacy) 1 ea UD PRN N/A 02/01/17 20:29 03/03/17 20:28 Insulin Aspart (novoLOG ASPART) SLIDING SCALE ACHS SC 02/01/17 21:00 03/03/17 20:59 02/09/17 08:54 8 UNITS Glucose (Glucose 40% Gel) 15-30 GRAMS 15 GRAMS... UD PRN PO 02/01/17 20:45 03/03/17 20:44 Glucose (Glucose Chew Tab) 4-8 Tablets 4 Tabl... UD PRN PO 02/01/17 20:45 03/03/17 20:44 Dextrose (Dextrose 50% 50ML Syringe) 25-50ML OF 50% DW IV FOR... UD PRN IV 02/01/17 20:45 03/03/17 20:44 Glucagon (Glucagon Inj) 1 mg UD PRN SQ 02/01/17 20:45 03/03/17 20:44 Fluoxetine HCl (Prozac Cap) 40 mg QAM PO 02/03/17 09:00 03/04/17 08:59 02/09/17 08:44 40 MG Clonidine HCl (Catapres Tab) 0.1 mg [id number] PO 02/03/17 07:00 03/05/17 06:59 02/09/17 06:53 0.1 MG Docusate Sodium (coLACE CAP) 100 mg BID PO 02/02/17 22:00 03/04/17 21:59 02/09/17 08:42 100 MG Olanzapine (Zyprexa Tab) 15 mg HS PO 02/03/17 22:00 03/03/17 20:59 02/08/17 22:20 15 MG Metformin HCl (Glucophage Tab) 1,000 mg BIDM PO 02/05/17 10:30 03/07/17 10:29 02/09/17 08:43 1,000 MG Sitagliptin Phosphate (Januvia Tab) 100 mg DAILY PO 02/05/17 10:30 03/07/17 10:29 02/09/17 08:44 100 MG Insulin Degludec (Tresiba Flextouch) 45 units QAM SQ 02/06/17 09:00 03/08/17 08:59 02/09/17 08:46 45 UNITS Propranolol HCl (Inderal La Cap) 60 mg QAM PO 02/07/17 09:00 03/09/17 08:59 02/09/17 08:43 60 MG Lisinopril (Zestril Tab) 20 mg QAM PO 02/07/17 09:00 03/06/17 08:59 02/09/17 08:44 20 MG Lorazepam (Ativan Tab) 0.5 mg PRN PO 02/08/17 22:00 03/03/17 20:59 02/08/17 23:58 0.5 MG Trazodone HCl (Desyrel Tab) 100 mg HS PO 02/08/17 22:00 03/10/17 21:59 02/08/17 22:19 100 MG Trazodone HCl (Desyrel Tab) 50 mg HS PRN PO 02/08/17 10:30 03/10/17 10:29 02/08/17 23:20 50 MG Hydrochlorothiazide (Hydrochlorothiazide Tab) 25 mg PM PO 02/08/17 17:00 03/10/17 16:59 02/08/17 17:52 25 MG (Beatrice Prieto ., PA-C) Objective Vital Signs Date Time Temp Pulse Resp B/P (MAP) Pulse Ox O2 Delivery O2 Flow Rate FiO2 02/09/17 06:37 36.8 68 20 155/84 77 02/08/17 22:13 69 18 148/90 02/08/17 13:24 70 16 181/99 (Beatrice Prieto ., PA-C) Physical Exam General Appearance: no apparent distress, + obese Eyes: normal inspection, PERRL ENT: hearing grossly normal Neck: supple Respiratory/Chest: lungs clear, no respiratory distress, no accessory muscle use Cardiovascular: regular rate, rhythm Abdomen: normal bowel sounds, non tender, soft Extremities: no pedal edema, no calf tenderness Neurologic/Psychiatric: alert, oriented x 3, + pertinent finding (flat affect ) Skin: normal color, warm/dry, no rash (Beatrice Prieto PA-C) Laboratory Results Last 24 Hours Test 02/08/17 12:07 02/08/17 17:18 02/08/17 21:10 02/09/17 07:46 Bedside Glucose 165 mg/dl 127 mg/dl 147 mg/dl Sodium Level 140 mmol/L Potassium Level 3.6 mmol/L Chloride Level 105 mmol/L Carbon Dioxide Level 29 mmol/L Anion Gap 6.0 mmol/L Blood Urea Nitrogen 28 mg/dl Creatinine 0.95 mg/dl Est Creatinine Clear Calc Drug Dose 61.4 ml/min Estimated GFR () 81.5 Estimated GFR (Non- 70.3 BUN/Creatinine Ratio 29.1 Random Glucose 116 mg/dl Calcium Level 10.2 mg/dl Test 02/09/17 07:49 Bedside Glucose 111 mg/dl (Beatrice Prieto PA-C) Assessment and Plan Ms. Martins is a 51 year old woman here for treatment of depression and suicidal ideation. PMHx of DMII, HLD, HTN, constipation, and schizoaffective disorder. Depression, schizoaffective disorder, suicidal ideation: As per psychiatry T2DM: - Continue Tresiba 45 u SQ QAM, Metformin 1000 mg BID, Januvia 100 mg daily - BSG ACHS and ISS while inpatient - Recommend outpatient eye exam - Recommend keeping log of BSGs throughout the day and f/u w/ PCP in 1-2 weeks HTN: - HCTZ 25 mg QAM, Propranolol 60 mg QAM, Lisinopril 20 mg QAM, Catapres 0.1 mg QAM/afternoon and 0.2 mg HS - Renin/mayte pending - Recommend logging BPs 1-2 times daily and f/u w/ PCP in 1-2 weeks ?DARIUSZ: Recommend outpatient sleep study Constipation: Continue stool softener, MiraLAX PRN HLD: Continue Fenofibrate Code Status: LEVEL I, FULL Dispo: As per [facility]- medically stable (Beatrice Prieto PA-C) Attending Attestation: Pt seen/examined, chart reviewed, care plan d/w AMERICA Prieto. I agree w/ the lino components of her documentation. Feels good. No events overnight. Going home today. BPs improved gen - nad heart - RRR, s1, s2 lungs - CTA b/l abd - soft ext - no edema A/P: 1. HTN - improving control but not optimal. Review of outpatient [employer] shows numerous high readings. Does she have element of white coat HTN? Secondary HTN? renin/mayte levels pending. consider sleep study. send home with 4-drug regimen. f/u PCP this week. 2. T2DM - controlled; d/c home current inpatient regimen. 3. minimal hypercalcemia - could be due to HCTZ. Cannot r/o primary hyperparathyroidism. f/u needed. if she has early hyperparathyroidism this could be contributing to #1 above. ok from medical standpoint to d/c home today. Dimitry WESTON MD (Tawanda Weston MD)
[2017-02-09] MEDS ORDERED: LSN20 PO (09:39)
[2017-02-09] MEDS ORDERED: ZYP10 PO (09:39)
[2017-02-09] MEDS ORDERED: INDSR/60 PO (09:39)
[2017-02-09] MEDS ORDERED: INSU1INJ33 SQ (09:39)
[2017-02-09] MEDS ORDERED: FLUO20CA35 PO (09:39)
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
== END 2017-02-09 11:43 | disposition home or self-care (01) | DRG 885 ==
LOC: C.EDB 11:19 → C.MHU 20:05 → ENRESERV 21:10 → C.MHU 02-08 16:05
PROVIDERS: ADMIT Psychiatry & Neurology Psychiatry; ATTEND Psychiatry & Neurology Psychiatry
DX: F25.0 Schizoaffective disorder, bipolar type (principal); R45.851 Suicidal ideations; F13.239 Sedative, hypnotic or anxiolytic dependence with withdrawal, unspecified; Z87.891 Personal history of nicotine dependence; E78.5 Hyperlipidemia, unspecified; E11.9 Type 2 diabetes mellitus without complications; Z83.3 Family history of diabetes mellitus; Z83.49 Family history of other endocrine, nutritional and metabolic diseases; F10.10 Alcohol abuse, uncomplicated; K59.00 Constipation, unspecified; I10 Essential (primary) hypertension

== ENCOUNTER → 2017-02-13 | Outpatient (CLI) | payer OTHER ==
[~2017-02-13] MED LIST changes: -ATEN-173 PO; +BUSP30TA2 PO; -CHOL1000 PO; +CHOL400T5 PO; +CLON0.2T PO; -EFF75 PO; +FENO145T26 PO; -FENO48TA9 PO; +FLUO20CA35 PO; -FLUT0.15 NAE; -FURO-85 PO; -GLC/500 PO; +HYDR-3126 PO; +HYDR25TA4 PO; +INDSR/60 PO; +INSU1INJ33 SQ; -LISI-729 PO; -LITH150C PO; +LSN20 PO; +MELATAB2 PO; +METF-384 PO; -MULT-506 PO; -OMEG10007 PO; -OXCA150T2 PO; -RISP0.5T10 PO; -RISP1TAB18 PO; -SENNTAB23 PO; +SITA100T3 PO; -SITA25TA PO; -TRAZ50TA35 PO; -VENL150C56 PO; +ZYP10 PO; +ZYP5 PO
== END | disposition home or self-care (01) ==
LOC: C.LABPVFM 14:51
PROVIDERS: ATTEND Nurse Practitioner
DX: E83.52 Hypercalcemia (principal)

== ENCOUNTER → 2017-02-19 | Outpatient (CLI) | payer OTHER ==
--- NOTE | 2017-02-19 09:43 | DIAGNOSTIC IMAGING REPORT ---
RENAL DUPLEX ULTRASOUND CLINICAL HISTORY: I10 Hypertension, [id number] COMPARISON STUDY: No previous studies for comparison. FINDINGS: The right kidney measures 10.4 cm in length. The left kidney measures 11.1 cm in length. Color flow and spectral waveform analysis was performed. The peak systolic velocity within the aorta was 97 cm/s. The peak systolic velocity within the right renal artery was 107 cm/s. The systolic velocity within the left renal artery was 114 cm/s. Renal arterial upstrokes appeared within normal limits. The right renal resistive index was 0.73 which is borderline elevated. The left renal resistive index was 0.66. IMPRESSION: No ultrasonographic evidence of renal artery stenosis. Electronically signed by: Contreras Burger M.D. 02/19/2017 9:41 AM Dictated Date/Time: 02/19/2017 9:38 AM
== END | disposition home or self-care (01) ==
LOC: C.ULTR 09:10
PROVIDERS: ATTEND Nurse Practitioner
DX: I10 Essential (primary) hypertension (principal)

== ENCOUNTER → 2017-06-25 | Outpatient (CLI) | payer OTHER ==
[2017-06-25 17:59] LABS: BLOOD UREA NITROGEN 14 mg/dl (7-18); CALCIUM 10.1 mg/dl (8.5-10.1); CARBON DIOXIDE 28 mmol/L (21-32); CREATININE 0.88 mg/dl (0.60-1.20); GLUCOSE 133 mg/dl (70-99); POTASSIUM 3.6 mmol/L (3.5-5.1); SODIUM 135 mmol/L (136-145)
[2017-06-25 18:00] LABS: PHOSPHORUS 2.4 mg/dl (2.5-4.9)
== END | disposition home or self-care (01) ==
LOC: C.LABPVFM 15:21
PROVIDERS: ATTEND Internal Medicine Nephrology
DX: Z86.39 Personal history of other endocrine, nutritional and metabolic disease (principal)

== ENCOUNTER → 2017-07-04 | Outpatient (CLI) | payer OTHER ==
--- NOTE | 2017-07-08 07:49 | MAMMOGRAPHY REPORT ---
BILATERAL DIGITAL SCREENING MAMMOGRAM TOMOSYNTHESIS WITH CAD: 07/04/2017 CLINICAL HISTORY: Routine screening. TECHNIQUE: Breast tomosynthesis in addition to standard 2D mammography was performed. Current study was also evaluated with a Computer Aided Detection (CAD) system. COMPARISON: Comparison is made to exams dated: 07/02/2016 mammogram, 12/21/2014 mammogram, 07/03/2013 mammogram, 06/27/2012 mammogram, 06/21/2011 mammogram, and 06/20/2010 mammogram - [facility]. BREAST COMPOSITION: There are scattered areas of fibroglandular density in both breasts. FINDINGS: No suspicious masses, calcifications, or areas of architectural distortion are noted in ei ther breast. There has been no significant interval change compared to prior exams. IMPRESSION: ACR BI-RADS CATEGORY 1: NEGATIVE There is no mammographic evidence of malignancy. A 1 year screening mammogram is recommended. The pa tient will receive written notification of the results. Approximately 10% of breast cancers are not detected with mammography. A negative mammographic report should not delay biopsy if a clinically suggestive mass is present. Christine Begum M.D. /:07/04/2017 14:54:23 Lime Supervisor: Jayne CASPER(Trish)(M), [facility] letter sent: Normal 1/2 BI-RADS Code: ACR BI-RADS Category 1: Negative
== END | disposition home or self-care (01) ==
LOC: C.MAMM 13:02
PROVIDERS: ATTEND Nurse Practitioner
DX: Z12.31 Encounter for screening mammogram for malignant neoplasm of breast (principal)

== ENCOUNTER → 2017-11-01 | Outpatient (CLI) | payer OTHER ==
[~2017-11-01] MED LIST changes: +LISI-726 PO; -LSN20 PO
[2017-11-01 12:54] LABS: ALBUMIN 4.1 gm/dl (3.4-5.0); BLOOD UREA NITROGEN 13 mg/dl (7-18); CALCIUM 10.3 mg/dl (8.5-10.1); CARBON DIOXIDE 25 mmol/L (21-32); CREATININE 0.86 mg/dl (0.60-1.20); GLUCOSE 121 mg/dl (70-99); PHOSPHORUS 3.3 mg/dl (2.5-4.9); SODIUM 139 mmol/L (136-145)
== END | disposition home or self-care (01) ==
LOC: C.LABPVFM 10:38
PROVIDERS: ATTEND Internal Medicine Nephrology
DX: I10 Essential (primary) hypertension (principal)

== ENCOUNTER 2022-10-09 09:06 | Observation (INO) ==
[2022-10-09] MEDS ORDERED: SODIUM CHLORIDE 0.9% 1000ML 1,000 ML IV SCH (10:15)
[2022-10-09 10:45] LABS: Basophils # (auto) 0.06 K/uL (0-0.2); Basophils % (auto) 0.6 %; Eosinophils # (auto) 0.33 K/uL (0-0.50); Eosinophils % (auto) 3.2 %; Hematocrit (blood only) 40.8 % (37.0-47.0); Hemoglobin 13.7 g/dl (12.0-16.0); Immature Granulocytes # (auto) 0.14 K/uL (0.01-0.20); Immature Granulocytes % (auto) 1.4 %; Lymphocytes # (auto) 2.53 K/uL (1.2-3.4); Lymphocytes % (auto) 24.6 %; Mean Corpuscular Hemoglobin 29.8 pg (25.0-34.0); Mean Corpuscular Hgb Conc 33.6 g/dL (32.0-36.0); Mean Corpuscular Volume 88.9 fL (80.0-100.0); Mean Platelet Volume 10.3 fL (9.4-12.4); Monocytes % (auto) 9.7 %; Neutrophils # (auto) 6.24 K/uL (1.40-6.50); Neutrophils % (auto) 60.5 %; Platelet Count 350 K/uL (130-400); RDW Coefficient of Variation 13.8 % (11.5-14.5); RDW Standard Deviation 44.6 fL (36.4-46.3); Red Blood Count 4.59 M/uL (4.20-5.40)
[2022-10-09 10:46] LABS: Albumin Globulin Ratio 1.3 (0.9-2); Albumin Level 4.4 gm/dl (3.4-5.0); BUN Creatinine Ratio 23.6 (10-20); Bilirubin,Total 0.7 mg/dl (0.2-1.0); Calcium 10.9 mg/dl (8.6-10.3); Creatinine Clr Calc Pharmacy 61.8 ml/min; Est GFR (African American) 68.5 ml/min; Est GFR (Non-African American) 59.1 ml/min; Globulin 3.4 gm/dl (2.5-4.0); Potassium 3.9 mmol/L (3.5-5.1); Total Protein 7.8 gm/dl (6.0-8.3)
[2022-10-09 10:52] LABS: Troponin I High Sensitivity 15.5 pg/ml (0-14)
[2022-10-09 11:15] LABS: Appearance Urine Clear (Clear); Bacteria Urine Automated 3+ (Negative); Bilirubin Urine Negative (Negative); Blood Urine Negative (Negative); Cast Urine Automated 0 /lpf (0-5); Color Urine Yellow; Glucose Urine UA Negative (Negative); Ketones Urine Negative (Negative); Leukocyte Esterase Urine Trace (Negative); Nitrite Urine Negative (Negative); Protein Urine Negative (Negative); RBC Urine Automated 0-4 /hpf (0-4); Specific Gravity Urine 1.008 (1.000-1.030); Urobilinogen Urine Negative (Negative)
--- NOTE | 2022-10-09 11:40 | CT Scan Report ---
CT cervical spine wo con CLINICAL HISTORY: 57 years-old Female with Trauma. Acute neck injury status post fall COMPARISON: CT head and maxillofacial studies of same day TECHNIQUE: Multiple axial CT images of the cervical spine were obtained without contrast. A dose low ering technique was utilized adhering to the principles of ALARA. FINDINGS: Straightening of the normal cervical lordosis. Severe intervertebral disc space narrowing a t C5-C6 with moderate to pronounced spondylitic spurring and posterior disc osteophyte complex. Mild to moderate multilevel facet arthrosis. Limited exam secondary to body habitus of the patient. No acu te fracture or subluxation identified. The cervical soft tissues appear unremarkable. The visualized lung apices appear clear. IMPRESSION: No acute cervical spine fracture or subluxation. ACT 112: Negative or not required by law. The above report was generated using voice recognition software. It may contain grammatical, syntax o r spelling errors. Electronically signed by: Mike Blackwell M.D. 10/09/2022 11:38 AM
--- NOTE | 2022-10-09 11:40 | CT Scan Report ---
CT facial bones wo con CLINICAL HISTORY: 57 years-old Female presenting with Trauma. Acute facial trauma status post fall COMPARISON STUDY: CT head and cervical spine studies of same day TECHNIQUE: High-resolution CT scan of the facial bones is performed. Images are reviewed in the axia l, sagittal, and coronal planes. IV contrast was not administered for this examination. A dose lower ing technique was utilized adhering to the principles of ALARA. FINDINGS: Streak artifact from dental hardware. No acute intracranial abnormality identified. Hyperostosis fron talis interna. Mastoid air cells and paranasal sinuses are relatively clear. Mild leftward bowing and spurring of the nasal septum. No definite acute facial bone fracture identified. Degenerative change s of the midcervical spine. Mild soft tissue swelling of the nasal bridge with mild subcutaneous deena a of the forehead. IMPRESSION: Small facial contusions without acute facial bone fracture identified. ACT 112: Negative or not required by law. The above report was generated using voice recognition software. It may contain grammatical, syntax o r spelling errors. Electronically signed by: Mike Blackwell M.D. 10/09/2022 11:38 AM
--- NOTE | 2022-10-09 11:40 | CT Scan Report ---
CT head/brain wo con CLINICAL HISTORY: 57 years-old Female with Trauma. Acute head trauma TECHNIQUE: Multiple axial CT images of the head were obtained without contrast. A dose lowering tech nique was utilized adhering to the principles of ALARA. CT DOSE: 1396.58 mGy.cm COMPARISON: CT cervical spine of same day FINDINGS: No acute intracranial hemorrhage, midline shift, intracranial mass, acute territorial ischemia or abn ormal extra-axial collection. Involutional changes with mild ventriculomegaly, likely on the sagittal bases. The calvarium is intact. The paranasal sinuses, mastoid air cells, and middle ear cavities are clear . IMPRESSION: No acute intracranial abnormality or calvarial fracture. ACT 112: Negative or not required by law. The above report was generated using voice recognition software. It may contain grammatical, syntax o r spelling errors. Electronically signed by: Mike Blackwell M.D. 10/09/2022 11:38 AM
[2022-10-09] MEDS ORDERED: IOVERSOL 350 MG 125mL Prefilled Syringe IV ONE (13:05)
--- NOTE | 2022-10-09 13:53 | CT Scan Report ---
CT ANGIOGRAPHY OF THE CHEST, PULMONARY EMBOLUS PROTOCOL CLINICAL HISTORY: Near syncope. Elevated troponin. COMPARISON STUDY: No previous studies for comparison. TECHNIQUE: Following IV administration of 120 mL of Optiray, helical axial images of the chest were o btained utilizing the pulmonary embolus protocol. Maximal intensity projections and sagittal and cor onal reformats were viewed on an independent 3D workstation. IV contrast was administered without co mplication. Automated exposure control was utilized for the study. A dose lowering technique was ut ilized adhering to the principles of ALARA. CT DOSE: 894.13 mGy.cm FINDINGS: No pulmonary emboli are identified. There is no thoracic aortic dissection. There is mild cardiomegaly. No pericardial effusion is present. There is no thoracic lymphadenopathy. No pneumothor ax or pleural effusion is present. There is no consolidation to suggest pneumonia. Linear bilateral d ensities represent atelectasis or scarring. No acute fractures within the visualized bony thorax are present. There is hepatic steatosis. IMPRESSION: 1. No pulmonary emboli identified. 2. No acute intrathoracic findings. 3. Mild cardiomegaly. ACT 112: Negative or not required by law. Electronically signed by: Major Aguilar M.D. 10/09/2022 1:50 PM
[2022-10-09] MEDS ORDERED: cloNIDine HCL 0.1 MG TAB PO ONE (16:26)
--- NOTE | 2022-10-09 16:46 | History & Physical Report ---
Date of Service October 09, 2022 Assessment & Plan (1) Dizziness: Plan: Suspect vertigo. Since this only lasted for only a few minutes no need for further workup at this time. ?related to her high BP vs. gas exchange as occurred while smoking. Monitor on telemetry for arrhythmia as history somewhat unreliable TTE in AM due to heart murmur and nothing on record Less likely she was recently given baclofen by her PCP - either way we will discontinue this medication (2) Fall: Plan: Due to dizziness as above. Conscious throughout per patient but unable to catch herself with her arm strength. PT/OT evals (3) Hypertension: Plan: Longstanding problem managed by Dr Bates Missed her clonidine, will give dose now. Lasix 40mg IV now. Continue clonidine, furosemide, lisinopril, propranolol. Add back her spironolactone. Hydralazine 10mg IV q4h PRN for sBP > 180, dBP > 120 (4) Type 2 diabetes mellitus, with long-term current use of insulin: Plan: HbA1C 9.4 in July, repeat with AM labs Tresiba switched to Lantus 100 units BID Novolog base on basal dosing: --Goal BSG Range: Low 110 mg/dL, High 140 mg/dL --Correction Factor: 5 mg/dL/unit --Carbohydrate ratio = 1 g/unit --BSGs ACHS if eating, q6h if npo Consult pharmacy for glycemic control given high insulin requirement (5) Elevated troponin: Plan: Mild elevation and stable. No chest pain or shortness of breath to suggest ACS. Do not suspect contributed towards fall. (6) Nasal contusion: Plan: Routine wound care by nursing. No acute facial fracture on CT (7) Schizoaffective disorder, bipolar type: Plan: Continue her routine medications (8) Anxiety: Plan VTE Prophylaxis - deferred as low risk with fall today Diet - T2DM Disposition - observation to med/tele Admission and Anticipated Discharge Date Admission Date: October 09, 2022 History of Present Illness Chief Complaint: Fall Primary Care Provider: RICHARD Verduzco Jeri Martins is a 57 year old female who presents to the ER due to a fall earlier today. Fall occurred in the context of feeling dizzy. She denies lightheadedness but feels this dizziness was more room spinning sensation. Last for about 2 minutes while smoking a cigarette. Never had this happen before. She did not lose consciousness but fell forward. She does note sticking out her arms but could not catch herself so hit her face on concrete. No injuries to her arms or legs. Pain on her nose. No headache or neck pain. Otherwise she was feeling well this morning and back to her baseline now. Allergies Allergy/AdvReac Type Severity Reaction Status Date / Time amoxicillin Allergy Unknown HAPPENED Verified 10/09/22 12:59 A CHILD ciprofloxacin Allergy Unknown HAPPENED Verified 10/09/22 12:59 A CHILD clavulanic acid Allergy Unknown HAPPENED Verified 10/09/22 12:59 [From Augmentin] A CHILD Home Medications Medication Instructions Recorded Confirmed Type melatonin 10 mg tablet 10 mg PO HS 12/10/18 10/09/22 History docusate sodium 100 mg capsule 100 mg PO DAILY 05/27/20 10/09/22 History flash glucose scanning reader #1 ea 01/06/21 10/09/22 Rx ([employer] Rosa 14 Day [place]) ascorbic acid (vitamin C) 1,000 mg 1 g PO DAILY 08/29/21 10/09/22 History tablet (Vitamin C) clonazepam 0.5 mg tablet (Klonopin) 0.5 mg PO DAILY PRN Panic Attack(S) 08/29/21 10/09/22 History zergxvzn-opae-yap-folic acid 18 1 tab PO DAILY 08/29/21 10/09/22 History mg-0.4 mg tablet (One Daily For Women) buspirone 10 mg tablet See Rx Instructions .Route .COMPLEX 08/30/21 10/09/22 History olanzapine 5 mg tablet See Rx Instructions .Route .COMPLEX 08/30/21 10/09/22 History vilazodone 10 mg tablet 10 mg PO QAM 08/30/21 10/09/22 History vilazodone 20 mg tablet 20 mg PO QAM 08/30/21 10/09/22 History sitagliptin phosphate 100 mg 100 mg PO DAILY #90 tabs 11/23/21 10/09/22 Rx tablet (Januvia) clonidine HCl 0.2 mg tablet 0.2 mg PO TID #270 tabs 01/04/22 10/09/22 Rx atorvastatin 20 mg tablet 20 mg PO DAILY #30 tabs 01/10/22 10/09/22 Rx metformin 1,000 mg tablet 1,000 mg PO BID #60 tabs 01/18/22 10/09/22 Rx pen needle, diabetic 32 gauge x See Rx Instructions .Route 01/18/22 10/09/22 Rx 5/32" (BD Ultra-Fine [place]a Pen .COMPLEX ##100 Needle) lisinopril 40 mg tablet 40 mg PO DAILY #90 tabs 04/05/22 10/09/22 Rx flash glucose sensor (FreeStyle #4 ea 04/19/22 10/09/22 Rx Rosa 14 Day Sensor kit) spironolactone 50 mg tablet 100 mg PO DAILY #180 tabs 04/20/22 10/09/22 Rx propranolol 160 mg capsule,24 160 mg PO DAILY #90 caps 06/13/22 10/09/22 Rx hr,extended release insulin degludec 200 unit/mL (3 200 unit subcut DAILY #36 mL 07/12/22 10/09/22 Rx mL) subcutaneous pen (Tresiba FlexTouch U-200 insulin) furosemide 20 mg tablet 40 mg PO DAILY #180 tabs 07/20/22 10/09/22 Rx fenofibrate nanocrystallized 145 145 mg PO DAILY #30 tabs 08/16/22 10/09/22 Rx mg tablet baclofen 10 mg tablet 10 mg PO TID PRN muscle spasm #60 10/05/22 10/09/22 Rx tabs hydroxyzine HCl 50 mg tablet 50 mg PO HS 10/09/22 10/09/22 History insulin aspart U-100 100 unit/mL 0 unit subcut DIRECTED 10/09/22 10/09/22 History (3 mL) subcutaneous pen (Novolog FlexPen U-100 Insulin aspart) Past Med/Surg History Medical History Anxiety Hyperlipidemia Hypertension Obesity Schizoaffective disorder, bipolar type Type 2 diabetes mellitus, with long-term current use of insulin Surgical History No history of previous surgery Family History Family/Other Breast cancer niece Denies family history of Ovarian cancer Prostate cancer Myocardial infarction Colorectal cancer Social History Smoking Status: Current every day smoker Tobacco Type: Cigarettes Cigarettes Per Day: 20; Second Hand Exposure: No; Do You Dip or Chew Tobacco: No; Tobacco Cessation Education Requested by Patient: No Hx Alcohol Use: No Hx Substance Use: No Preferred Language: Khmer Communication Ability: Effective Automatic Glove Turner And Former Required: No Beliefs That Will Affect Care: None marital status: Single Current Living Situation: Alone current occupational status: disabled How many Children do You have: 0 Other Information That Helps Us Care for You: No Feels Safe at Home: Yes Safety Concerns: Feels Safe At This Time Childhood Exposure to Second-Hand Smoke: Yes Diet: regular caffeine: Yes Dental Care, Regularly: No Physical Activity Frequency: Does not Exercise Seatbelt Use: always Sunscreen Use: No Assistive Devices: Glasses Review of Systems Review of Systems: All systems reviewed & are unremarkable except as noted in HPI & below Physical Exam 2 Constitutional: + not well nourished and no acute distress muñoz facies, short limbs Eyes: PERRL, conjunctivae normal, anicteric sclerae ENMT: external ear and nose normal, oropharynx normal Cardiovascular: Rate/Rhythm: regular rate and regular rhythm Heart Sounds: + murmur Extremities: + pedal edema (1+ b/l pitting) Gastrointestinal (Abdomen): normal bowel sounds, soft, nontender, no hepatosplenomegaly Musculoskeletal: no cyanosis or clubbing, extremities motor strength 5/5 Skin: no rashes, warm and dry Neurologic: CN's II-XI intact bilaterally, moves all extremities and awake; no focal motor deficits and not confused Psychiatric: A+Ox3, euthymic affect Results & Data Results & Data Vital Signs (Past 12 Hours) Vital Signs Temp Pulse Resp BP Pulse Ox O2 Del Method 10/09/22 14:30 73 19 10/09/22 14:18 75 18 186/102 H 95 10/09/22 14:04 76 20 189/98 H 95 10/09/22 14:00 207/102 H 10/09/22 13:51 76 13 193/97 H 96 10/09/22 13:45 206/100 H 96 10/09/22 12:00 70 20 186/96 H 95 10/09/22 11:20 75 22 156/89 H 96 10/09/22 10:09 80 22 96 Room Air 10/09/22 09:06 37.3 C 84 22 194/94 H 96 Room Air 10/09/22 09:26 80 Laboratory Results Abnormal lab results 10/09/22 10/09/22 10/09/22 Range/Units 09:24 09:24 10:50 [place] # (Auto) 1.00 H (0.11-0.59) K/uL BUN 25 H (6-23) mg/dl BUN/Creatinine Ratio 23.6 H (10-20) Glucose 221 H (70-99(Fasting)) mg/dl Calcium 10.9 H (8.6-10.3) mg/dl AST 98 H (13-39) U/L Troponin I High Sens 15.5 H (0-14) pg/ml Ur Leukocyte Esterase Trace H (Negative) Urine WBC (Auto) 5-10 H (0-5) /hpf U Epithel Cells (Auto) 5-10 H (0-5) /lpf Urine Bacteria (Auto) 3+ H (Negative) Diagnostic Findings CT head/brain wo con CLINICAL HISTORY: 57 years-old Female with Trauma. Acute head trauma TECHNIQUE: Multiple axial CT images of the head were obtained without contrast. A dose lowering technique was utilized adhering to the principles of ALARA. CT DOSE: 1396.58 mGy.cm COMPARISON: CT cervical spine of same day FINDINGS: No acute intracranial hemorrhage, midline shift, intracranial mass, acute territorial ischemia or abnormal extra-axial collection. Involutional changes with mild ventriculomegaly, likely on the sagittal bases. The calvarium is intact. The paranasal sinuses, mastoid air cells, and middle ear cavities are clear. IMPRESSION: No acute intracranial abnormality or calvarial fracture. CT facial bones wo con CLINICAL HISTORY: 57 years-old Female presenting with Trauma. Acute facial trauma status post fall COMPARISON STUDY: CT head and cervical spine studies of same day TECHNIQUE: High-resolution CT scan of the facial bones is performed. Images are reviewed in the axial, sagittal, and coronal planes. IV contrast was not administered for this examination. A dose lowering technique was utilized adhering to the principles of ALARA. FINDINGS: Streak artifact from dental hardware. No acute intracranial abnormality identified. Hyperostosis frontalis interna. Mastoid air cells and paranasal sinuses are relatively clear. Mild leftward bowing and spurring of the nasal septum. No definite acute facial bone fracture identified. Degenerative changes of the midcervical spine. Mild soft tissue swelling of the nasal bridge with mild subcutaneous edema of the forehead. IMPRESSION: Small facial contusions without acute facial bone fracture identified. CT ANGIOGRAPHY OF THE CHEST, PULMONARY EMBOLUS PROTOCOL CLINICAL HISTORY: Near syncope. Elevated troponin. COMPARISON STUDY: No previous studies for comparison. TECHNIQUE: Following IV administration of 120 mL of Optiray, helical axial i mages of the chest were obtained utilizing the pulmonary embolus protocol. Maximal intensity projections and sagittal and coronal reformats were viewed on an independent 3D workstation. IV contrast was administered without complication. Automated exposure control was utilized for the study. A dose lowering technique was utilized adhering to the principles of ALARA. CT DOSE: 894.13 mGy.cm FINDINGS: No pulmonary emboli are identified. There is no thoracic aortic dissection. There is mild cardiomegaly. No pericardial effusion is present. There is no thoracic lymphadenopathy. No pneumothorax or pleural effusion is present. There is no consolidation to suggest pneumonia. Linear bilateral densities represent atelectasis or scarring. No acute fractures within the visualized bony thorax are present. There is hepatic steatosis. IMPRESSION: 1. No pulmonary emboli identified. 2. No acute intrathoracic findings. 3. Mild cardiomegaly. Medications Administered ER Medications Given: NSS 1L bolus Clonidine 0.2mg PO ECG Rate (beats per minute): 82 Rhythm: normal sinus Findings: no acute ischemic change Comparison ECG Date: from (Apr 30, 2016) Change: the following changes noted (T wave inversion no longer evident in lateral leads) Code Status & VTE Plan Code Status Full VTE Prophylaxis Plan VTE Prophylaxis will be ordered: No PG Care Time/CCT Total # of Minutes Spent Total Time Spent with Patient: Total time spent is greater than 50% in coordination of care (as documented) at patient's floor/unit and/or counseling patient: Coding Level of Care Code 24740 INT INP/OBS CARE 2/55MIN Diagnoses Dizziness R42 Fall [id number].XXXA Hypertension I10 Type 2 diabetes mellitus, with long-term current use of insulin E11.9; Z79.4 Elevated troponin R77.8 Nasal contusion S00.33XA Schizoaffective disorder, bipolar type F25.0 Anxiety F41.9
[2022-10-09] MEDS ORDERED: FUROSEMIDE 40 MG/4 ML VIAL IV STA (17:01)
--- NOTE | 2022-10-09 17:03 | Emergency Department Note ---
Impression & Plan Near syncope, Hypertension, Elevated troponin, Abrasion of nose, initial encounter, Nasal contusion ED Provider Note INFORMANT: Patient ED PROVIDER(S): Dank Lynne MD CHIEF COMPLAINT: Fall PLAN: Disposition: Admitted Condition: Good Outpatient prescription management: none Referral: None MEDICAL DECISION MAKING: Patient presented because of a fall. Her history was concerning that this may have been a sudden onset near syncopal or possibly even a syncopal episode that was very brief. Patient does not think that she passed out but she did fall fairly square onto her face. Her wounds to the nose were thankfully superficial. I did clean these myself and applied bacitracin and a bandage. Patient underwent a work-up. Her ECG and cardiac monitoring showed a normal sinus rhythm. Patient had CT imaging done of the head, facial bones and C- spine. There was no acute bony abnormality or intracranial abnormality noted. No C-spine abnormalities noted. Patient was found to have an elevated troponin but the rest of her blood work was unremarkable. Because of this a CT scan of the chest was performed to rule out pulmonary embolism or other obvious structural abnormalities. No PE or other abnormalities were noted per radiology. The patient did not have any obvious evidence of dysrhythmia. She has been fairly hypertensive during her time in the emergency department. My concern is that this could have been a dysrhythmia or other cardiogenic etiology given the very slight abnormal troponin. I believe the patient would be best served by observation and monitoring in the hospital. Discussed with patient and she was in agreement. Consultation was made with Dr. Tawanda Burrell of the [facility] service. Case was discussed and diagnostics were reviewed. Patient was evaluated in the ER for further management. Discussed with telehealth case manager After review of the information above and other included data, I feel the patient requires admission. Triage Nursing notes reviewed and agree them. Vital Signs: reviewed and remarkable for hypertension Prior /Outside records reviewed: none Differential diagnosis: Fracture, contusion, soft tissue injury, intracranial injury, vasovagal event, dehydration, infection, hypoglycemia, electrolyte abnormalities, cardiac sources, intracerebral event, pulmonary embolism, seizure, toxicologic, neurologic, as well as other pathologies. Diagnostics, as interpreted by me: ECG: Twelve-lead ECG reveals normal sinus rhythm at 82 bpm. Left axis deviation and LVH. No T wave inversion or ST elevation. Cardiac Monitoring: Cardiac monitoring ordered by me: The patient was placed on continuous cardiac monitoring and observed. It revealed a normal sinus rhythm at 79 beats per minute without ectopy or evidence of dysrhythmia. Medical decision rules: none Imaging studies: CT scans as noted above. HPI: The patient is a 57 year old female who presents to the Emergency Room with complaints of a fall. This started just prior to arrival and is and is from getting lightheaded, dizzy and feeling like she may pass out. She tripped over a curb and fell and hit her face on the pavement. Patient's glasses were scr atched and caused superficial lacerations/abrasions to the bridge of the nose as well as the left side of the nose. Patient had a nosebleed. She also had an abrasion to the lower lip that had some swelling and pain. Denied any dental pain or jaw pain. Patient notes the symptoms were sudden onset and she felt well this morning prior to the event. The patient also notes the following associated symptoms, none. The patient has been given no medication for relieving factors. Current pain is rated as 1/10. Patient does not feel like she fully passed out. Of note she denies any pain in the upper extremities or hands that would support her trying to catch her self. Pt denies LOC, headache, recent fevers, chills, diaphoresis, visual changes, neck pain, chest pain, breathing difficulties, nausea, vomiting, abdominal pain, back pain, extremity trauma, melena, hematochezia, urinary symptoms, numbness, weakness, lymphadenopathy, rash, or other complaints. PAST MEDICAL HISTORY: See Below, type 2 diabetes, hypercalcemia PAST SURGICAL HISTORY: See Below, SOCIAL HISTORY: See Below, non-smoker HOME MEDICATIONS: See Below ALLERGIES: See Below VITALS: See Below PHYSICAL EXAMINATION: GENERAL: Awake, alert, well-appearing, in no distress HENT: Normocephalic, scalp atraumatic. There is a superficial shave like abrasion to the bridge of the nose as well as a superficial abrasion/laceration to the left side of the nose. No bony deformity of the nose but there is some mild swelling. Patient has some dried blood at the naris but no evidence of septal hematoma or active bleeding. Patient has some swelling and contusion/abrasion noted of the lower lip. No lacerations. Upper lip is unremarkable. Dentition intact. Tongue normal. Oropharynx unremarkable. EYES: Normal conjunctiva. Sclera non-icteric. NECK: Inspection normal. Non-tender. Supple. No nuchal rigidity. FROM. No masses. RESPIRATORY: Clear to auscultation. No wheezes. No rales. Normal respiratory effort. CARDIAC: Normal rate. Normal rhythm. No murmurs. No rubs. Extremities warm and well perfused. Pulses equal. No JVD. GI: Soft, non-distended. No tenderness to palpation. No rebound or guarding. No masses. RECTAL: Deferred. MUSCULOSKELETAL: Atraumatic. Chest examination reveals no tenderness. The back is symmetrical on inspection without obvious abnormality. There is no CVA tenderness to palpation. No joint edema. LOWER EXTREMITIES: Calves are equal size bilaterally and non-tender. No edema. No discoloration. NEURO: Normal sensorium. No sensory or motor deficits noted. SKIN: No rash or jaundice noted. Past Med/Surg History Medical History Anxiety Hyperlipidemia Hypertension Obesity Schizoaffective disorder, bipolar type Type 2 diabetes mellitus, with long-term current use of insulin Surgical History No history of previous surgery Family History Family/Other Breast cancer niece Denies family history of Ovarian cancer Prostate cancer Myocardial infarction Colorectal cancer Social History Smoking Status: Current every day smoker Tobacco Type: Cigarettes Second Hand Exposure: Yes; Do You Dip or Chew Tobacco: No; Hx Alcohol Use: Yes Hx Substance Use: No Preferred Language: Slovak Communication Ability: Effective 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 marital status: Single Current Living Situation: Alone and Parent current occupational status: disabled How many Children do You have: 0 Feels Safe at Home: Yes Childhood Exposure to Second-Hand Smoke: Yes Diet: regular caffeine: Yes Dental Care, Regularly: No Physical Activity Frequency: Does not Exercise Seatbelt Use: always Sunscreen Use: No Allergies Allergies Allergy/AdvReac Type Severity Reaction Status Date / Time amoxicillin Allergy Unknown HAPPENED Verified 10/09/22 12:59 A CHILD ciprofloxacin Allergy Unknown HAPPENED Verified 10/09/22 12:59 A CHILD clavulanic acid Allergy Unknown HAPPENED Verified 10/09/22 12:59 [From Augmentin] A CHILD Home Meds Home Medications Medication Instructions Recorded Confirmed melatonin 10 mg tablet 10 mg PO HS 12/10/18 10/09/22 docusate sodium 100 mg capsule 100 mg PO DAILY 05/27/20 10/09/22 ascorbic acid (vitamin C) 1,000 mg 1 g PO DAILY 08/29/21 10/09/22 tablet (Vitamin C) clonazepam 0.5 mg tablet (Klonopin) 0.5 mg PO DAILY PRN Panic Attack(S) 08/29/21 10/09/22 ywmmvpel-vsmy-kdm-folic acid 18 1 tab PO DAILY 08/29/21 10/09/22 mg-0.4 mg tablet (One Daily For Women) buspirone 10 mg tablet See Rx Instructions .Route .COMPLEX 08/30/21 10/09/22 olanzapine 5 mg tablet See Rx Instructions .Route .COMPLEX 08/30/21 10/09/22 vilazodone 10 mg tablet 10 mg PO QAM 08/30/21 10/09/22 vilazodone 20 mg tablet 20 mg PO QAM 08/30/21 10/09/22 hydroxyzine HCl 50 mg tablet 50 mg PO HS 10/09/22 10/09/22 insulin aspart U-100 100 unit/mL 0 unit subcut DIRECTED 10/09/22 10/09/22 (3 mL) subcutaneous pen (Novolog FlexPen U-100 Insulin aspart) Previous Rx's Medication Instructions Recorded flash glucose scanning reader #1 ea 01/06/21 (XentionStyle Rosa 14 Day [place]) sitagliptin phosphate 100 mg 100 mg PO DAILY #90 tabs 11/23/21 tablet (Januvia) clonidine HCl 0.2 mg tablet 0.2 mg PO TID #270 tabs 01/04/22 atorvastatin 20 mg tablet 20 mg PO DAILY #30 tabs 01/10/22 metformin 1,000 mg tablet 1,000 mg PO BID #60 tabs 01/18/22 pen needle, diabetic 32 gauge x See Rx Instructions .Route 01/18/22" (BD Ultra-Fine Alda Pen .COMPLEX ##100 Needle) lisinopril 40 mg tablet 40 mg PO DAILY #90 tabs 04/05/22 flash glucose sensor (FreeStyle #4 ea 04/19/22 Rosa 14 Day Sensor kit) spironolactone 50 mg tablet 100 mg PO DAILY #180 tabs 04/20/22 propranolol 160 mg capsule,24 160 mg PO DAILY #90 caps 06/13/22 hr,extended release insulin degludec 200 unit/mL (3 200 unit subcut DAILY #36 mL 07/12/22 mL) subcutaneous pen (Tresiba FlexTouch U-200 insulin) furosemide 20 mg tablet 40 mg PO DAILY #180 tabs 07/20/22 fenofibrate nanocrystallized 145 145 mg PO DAILY #30 tabs 08/16/22 mg tablet baclofen 10 mg tablet 10 mg PO TID PRN muscle spasm #60 10/05/22 tabs Results & Data (ED) Vital Signs Vital Signs - 24 hr 10/09/22 09:26 10/09/22 09:06 10/09/22 10:09 Temperature 37.3 C Temperature Source Oral Pulse Rate 80 84 80 Pulse Rate from SpO2 Sensor Pulse Rhythm Regular Respiratory Rate 22 22 Respiratory Effort / Characteristics Non-Labored Respiratory Depth Normal Respiratory Pattern Regular Blood Pressure 194/94 H Blood Pressure Mean 127 Pulse Oximetry 96 96 Oxygen Delivery Method Room Air Room Air Sepsis Recent Fever Within 48 Hours No Sepsis New/Unexplained Change in Mental Status N/A Sepsis Action Taken by Nursing No Action Required 10/09/22 11:20 10/09/22 12:00 10/09/22 13:45 Temperature Temperature Source Pulse Rate 75 70 Pulse Rate from SpO2 Sensor 76 69 70 Pulse Rhythm Respiratory Rate 22 20 Respiratory Effort / Characteristics Respiratory Depth Respiratory Pattern Blood Pressure 156/89 H 186/96 H 206/100 H Blood Pressure Mean 111 126 135 Pulse Oximetry 96 95 96 Oxygen Delivery Method Sepsis Recent Fever Within 48 Hours Sepsis New/Unexplained Change in Mental Status Sepsis Action Taken by Nursing 10/09/22 13:51 10/09/22 14:00 10/09/22 14:04 Temperature Temperature Source Pulse Rate 76 76 Pulse Rate from SpO2 Sensor 76 74 Pulse Rhythm Respiratory Rate 13 20 Respiratory Effort / Characteristics Respiratory Depth Respiratory Pattern Blood Pressure 193/97 H 207/102 H 189/98 H Blood Pressure Mean 129 137 128 Pulse Oximetry 96 95 Oxygen Delivery Method Sepsis Recent Fever Within 48 Hours Sepsis New/Unexplained Change in Mental Status Sepsis Action Taken by Nursing 10/09/22 14:18 10/09/22 14:30 10/09/22 14:32 Temperature Temperature Source Pulse Rate 75 73 74 Pulse Rate from SpO2 Sensor 74 Pulse Rhythm Respiratory Rate 18 19 18 Respiratory Effort / Characteristics Respiratory Depth Respiratory Pattern Blood Pressure 186/102 H 187/103 H Blood Pressure Mean 130 131 Pulse Oximetry 95 Oxygen Delivery Method Sepsis Recent Fever Within 48 Hours Sepsis New/Unexplained Change in Mental Status Sepsis Action Taken by Nursing 10/09/22 15:00 10/09/22 15:30 10/09/22 16:02 Temperature Temperature Source Pulse Rate 74 79 Pulse Rate from SpO2 Sensor Pulse Rhythm Respiratory Rate 22 16 Respiratory Effort / Characteristics Respiratory Depth Respiratory Pattern Blood Pressure 176/107 H 169/102 H 190/106 H Blood Pressure Mean 130 124 123 Pulse Oximetry Oxygen Delivery Method Sepsis Recent Fever Within 48 Hours Sepsis New/Unexplained Change in Mental Status Sepsis Action Taken by Nursing 10/09/22 16:32 10/09/22 16:38 Temperature Temperature Source Pulse Rate 79 Pulse Rate from SpO2 Sensor 75 Pulse Rhythm Respiratory Rate 14 Respiratory Effort / Characteristics Respiratory Depth Respiratory Pattern Blood Pressure 191/107 H 198/90 H Blood Pressure Mean 135 126 Pulse Oximetry 91 Oxygen Delivery Method Sepsis Recent Fever Within 48 Hours Sepsis New/Unexplained Change in Mental Status Sepsis Action Taken by Nursing Laboratory Data 10/09/22 09:24 10/09/22 09:24 Lab Results 10/09/22 10/09/22 10/09/22 Range/Units 09:24 09:24 10:50 WBC 10.30 (4.8-10.8) K/ul RBC 4.59 (4.20-5.40) M/uL Hgb 13.7 (12.0-16.0) g/dl Hct 40.8 (37.0-47.0) % MCV 88.9 (80.0-100.0) fL MCH 29.8 (25.0-34.0) pg MCHC 33.6 (32.0-36.0) g/dL RDW Std Deviation 44.6 (36.4-46.3) fL RDW Coeff of Bj 13.8 (11.5-14.5) % Plt Count 350 (130-400) K/uL MPV 10.3 (9.4-12.4) fL Immature Gran % (Auto) 1.4 % Neut % (Auto) 60.5 % Lymph % (Auto) 24.6 % Mclennan % (Auto) 9.7 % Eos % (Auto) 3.2 % Baso % (Auto) 0.6 % Neut # (Auto) 6.24 (1.40-6.50) K/uL Lymph # (Auto) 2.53 (1.2-3.4) K/uL Mclennan # (Auto) 1.00 H (0.11-0.59) K/uL Eos # (Auto) 0.33 (0-0.50) K/uL Baso # (Auto) 0.06 (0-0.2) K/uL Immature Gran # (Auto) 0.14 (0.01-0.20) K/uL Sodium 138 (136-145) mmol/L Potassium 3.9 (3.5-5.1) mmol/L Chloride 105 (98-107) mmol/L Carbon Dioxide 23 (21-32) mmol/L Anion Gap 10 (3-11) BUN 25 H (6-23) mg/dl Creatinine 1.06 (0.6-1.2) mg/dl Est Cr Clr Drug Dosing 61.8 ml/min Est GFR ( Amer) 68.5 ml/min Est GFR (Non-Af Amer) 59.1 ml/min BUN/Creatinine Ratio 23.6 H (10-20) Glucose 221 H (70-99(Fasting)) mg/dl Calcium 10.9 H (8.6-10.3) mg/dl Total Bilirubin 0.7 (0.2-1.0) mg/dl AST 98 H (13-39) U/L ALT 23 (7-52) U/L Alkaline Phosphatase 55 (34-104) U/L Troponin I High Sens 15.5 H (0-14) pg/ml Total Protein 7.8 (6.0-8.3) gm/dl Albumin 4.4 (3.4-5.0) gm/dl Globulin 3.4 (2.5-4.0) gm/dl Albumin/Globulin Ratio 1.3 (0.9-2) Urine Color Yellow Urine Appearance Clear (Clear) Urine pH 5.0 (4.5-7.5) Ur Specific Frannie 1.008 (1.000-1.030) Urine Protein Negative (Negative) Urine Glucose (UA) Negative (Negative) Urine Ketones Negative (Negative) Urine Blood Negative (Negative) Urine Nitrite Negative (Negative) Urine Bilirubin Negative (Negative) Urine Urobilinogen Negative (Negative) Ur Leukocyte Esterase Trace H (Negative) Urine WBC (Auto) 5-10 H (0-5) /hpf Urine RBC (Auto) 0-4 (0-4) /hpf U Hyaline Cast (Auto) 0 (0-5) /lpf U Epithel Cells (Auto) 5-10 H (0-5) /lpf Urine Bacteria (Auto) 3+ H (Negative) Administered Medications Discontinued Medications Clonidine HCl (Clonidine Hcl 0.1 Mg Tab) 0.2 mg PO NOW ONE Stop: 10/09/22 16:27 Last Admin: 10/09/22 16:33 Dose: 0.2 mg Documented By: NRAura Sodium Chloride (Nss 1000ml) 1,000 mls @ 999 mls/hr IV .Q1H1M KAREN Stop: 10/09/22 11:15 Last Admin: 10/09/22 15:56 Dose: 999 mls/hr Documented By: DAWSON Ioversol (Ioversol 350 Mg 125ml Prefilled Syringe) 120 ml IV ONCE ONE Stop: 10/09/22 13:06 Last Admin: 10/09/22 13:05 Dose: 120 ml Documented By: NADIA Imaging Data Radiologist's Impression: Cervical Spine CT 10/09/22 10:09 CT cervical spine wo con CLINICAL HISTORY: 57 years-old Female with Trauma. Acute neck injury status post fall COMPARISON: CT head and maxillofacial studies of same day TECHNIQUE: Multiple axial CT images of the cervical spine were obtained without contrast. A dose lowering technique was utilized adhering to the principles of ALARA. FINDINGS: Straightening of the normal cervical lordosis. Severe intervertebral disc space narrowing at C5-C6 with moderate to pronounced spondylitic spurring and posterior disc osteophyte complex. Mild to moderate multilevel facet arthrosis. Limited exam secondary to body habitus of the patient. No acute fracture or subluxation identified. The cervical soft tissues appear unremarkable. The visualized lung apices appear clear. IMPRESSION: No acute cervical spine fracture or subluxation. ACT 112: Negative or not required by law. The above report was generated using voice recognition software. It may contain grammatical, syntax or spelling errors. Electronically signed by: Mike Blackwell M.D. 10/09/2022 11:[address] 10/09/22 10:09 CT facial bones wo con CLINICAL HISTORY: 57 years-old Female presenting with Trauma. Acute facial trauma status post fall COMPARISON STUDY: CT head and cervical spine studies of same day TECHNIQUE: High-resolution CT scan of the facial bones is performed. Images are reviewed in the axial, sagittal, and coronal planes. IV contrast was not administered for this examination. A dose lowering technique was utilized adhering to the principles of ALARA. FINDINGS: Streak artifact from dental hardware. No acute intracranial abnormality identified. Hyperostosis frontalis interna. Mastoid air cells and paranasal sinuses are relatively clear. Mild leftward bowing and spurring of the nasal septum. No definite acute facial bone fracture identified. Degenerative changes of the midcervical spine. Mild soft tissue swelling of the nasal bridge with mild subcutaneous edema of the forehead. IMPRESSION: Small facial contusions without acute facial bone fracture identified. ACT 112: Negative or not required by law. The above report was generated using voice recognition software. It may contain grammatical, syntax or spelling errors. Electronically signed by: Mike Blackwell M.D. 10/09/2022 11:[address] 10/09/22 10:09 CT head/brain wo con CLINICAL HISTORY: 57 years-old Female with Trauma. Acute head trauma TECHNIQUE: Multiple axial CT images of the head were obtained without contrast. A dose lowering technique was utilized adhering to the principles of ALARA. CT DOSE: 1396.58 mGy.cm COMPARISON: CT cervical spine of same day FINDINGS: No acute intracranial hemorrhage, midline shift, intracranial mass, acute territorial ischemia or abnormal extra-axial collection. Involutional changes with mild ventriculomegaly, likely on the sagittal bases. The calvarium is intact. The paranasal sinuses, mastoid air cells, and middle ear cavities are clear. IMPRESSION: No acute intracranial abnormality or calvarial fracture. ACT 112: Negative or not required by law. The above report was generated using voice recognition software. It may contain grammatical, syntax or spelling errors. Electronically signed by: Mike Blackwell M.D. 10/09/2022 11:38 AM Chest CTA 10/09/22 11:19 CT ANGIOGRAPHY OF THE CHEST, PULMONARY EMBOLUS PROTOCOL CLINICAL HISTORY: Near syncope. Elevated troponin. COMPARISON STUDY: No previous studies for comparison. TECHNIQUE: Following IV administration of 120 mL of Optiray, helical axial images of the chest were obtained utilizing the pulmonary embolus protocol. Maximal intensity projections and sagittal and coronal reformats were viewed on an independent 3D workstation. IV contrast was administered without complication. Automated exposure control was utilized for the study. A dose lowering technique was utilized adhering to the principles of ALARA. CT DOSE: 894.13 mGy.cm FINDINGS: No pulmonary emboli are identified. There is no thoracic aortic dissection. There is mild cardiomegaly. No pericardial effusion is present. There is no thoracic lymphadenopathy. No pneumothorax or pleural effusion is present. There is no consolidation to suggest pneumonia. Linear bilateral densities represent atelectasis or scarring. No acute fractures within the visualized bony thorax are present. There is hepatic steatosis. IMPRESSION: 1. No pulmonary emboli identified. 2. No acute intrathoracic findings. 3. Mild cardiomegaly. ACT 112: Negative or not required by law. Electronically signed by: Major Aguilar M.D. 10/09/2022 1:50 PM Discharge Plan Visit Data Chief Complaint: Fall Stated Complaint: FALL ED Provider: Dank Lynne Discharge Problem: Near syncope, Hypertension, Elevated troponin, Abrasion of nose, initial encounter, Nasal contusion Forms Stand Alone Forms: My [facility] Prescriptions Prescriptions: No Action Januvia 100 mg tablet 100 mg PO DAILY Qty: 90 3RF clonidine HCl 0.2 mg tablet 0.2 mg PO TID Qty: 270 3RF Rx Instructions: QAM, noon, and bedtime atorvastatin 20 mg tablet 20 mg PO DAILY Qty: 30 11RF metformin 1,000 mg tablet 1,000 mg PO BID Qty: 60 11RF Hold Instructions: eGFR <30 pen needle, diabetic [BD Ultra-Fine Alda Pen Needle] 32 gauge x 5/32" needle See Rx Instructions .ROUTE .COMPLEX Qty: 100 5RF Dose Instruction: USE 1 DAILY. Rx Instructions: USES UP TO 4 DAILY DX:E11.9 lisinopril 40 mg tablet 40 mg PO DAILY Qty: 90 3RF (DME) FreeStyle Rosa 14 Day Sensor Kit See Rx Instructions .Route Qty: 4 5RF Rx Instructions: test BS 3-4 times a day spironolactone 50 mg tablet 100 mg PO DAILY Qty: 180 3RF Hold Instructions: Home Medication placed on hold at Doctor's office propranolol 160 mg capsule,extended release 24 hr 160 mg PO DAILY Qty: 90 3RF fenofibrate nanocrystallized 145 mg tablet 145 mg PO DAILY Qty: 30 11RF melatonin 10 mg tablet 10 mg PO HS docusate sodium 100 mg capsule 100 mg PO DAILY Tresiba FlexTouch U-200 200 unit/mL (3 mL) insulin pen 200 unit subcut DAILY Qty: 36 5RF baclofen 10 mg tablet 10 mg PO TID PRN (Reason: muscle spasm) Qty: 60 2RF (DME) FreeStyle Rosa 14 Day [place] Misc See Rx Instructions .Route Qty: 1 0RF Rx Instructions: As directed furosemide 20 mg tablet 40 mg PO DAILY Qty: 180 3RF hydroxyzine HCl 50 mg tablet 50 mg PO HS Rx Instructions: Per ist insulin aspart U-100 [Novolog FlexPen U-100 Insulin] 100 unit/mL (3 mL) insulin pen 0 unit subcut DIRECTED ascorbic acid (vitamin C) [Vitamin C] 1,000 mg Tablet 1 g PO DAILY clonazepam [Klonopin] 0.5 mg Tablet 0.5 mg PO DAILY PRN (Reason: Panic Attack(S)) One Daily For Women 18-0.4 mg Tablet 1 tab PO DAILY olanzapine 5 mg tablet See Rx Instructions .ROUTE .COMPLEX Rx Instructions: 5 mg orally; TAKES 5 MG QAM, THEN 15 MG QHS. buspirone 10 mg tablet See Rx Instructions .ROUTE .COMPLEX Rx Instructions: 10 mg orally; TAKES 20 MG QAM, THEN 30 MG QHS. vilazodone 10 mg tablet 10 mg PO QAM Rx Instructions: TOTAL DOSE 30 MG--TAKES WITH 20 MG TAB. must administer with a meal/food, vilazodone 20 mg tablet 20 mg PO QAM Rx Instructions: TOTAL DOSE 30 MG--TAKES WITH 10 MG TAB. must administer with a meal/food, Referrals Referrals: Christinaa Crawford CRNP [Primary Care Provider] -
[2022-10-09] MEDS ORDERED: GLUCOSE 40% GEL 15 GM TUBE PO PRN (19:18)
[2022-10-09] MEDS ORDERED: CARBOHYDRATES FOR HYPOGLYCEMIA PO PRN (19:18)
[2022-10-09] MEDS ORDERED: GLUCOSE 10 TAB/TUBE PO PRN (19:18)
[2022-10-09] MEDS ORDERED: DEXTROSE 50% 50 ML SYRINGE IV PRN (19:18)
[2022-10-09] MEDS ORDERED: PHARMACY GLYCEMIC MGMT CONSULT PRN (19:18)
[2022-10-09] MEDS ORDERED: GLUCAGON FOR INJ 1 MG VIAL SQ PRN (19:18)
[2022-10-09] MEDS: INSULIN ASPART PER UNIT CHARGE SC SCH (20:49)
[2022-10-09] MEDS: cloNIDine HCL 0.1 MG TAB PO SCH (20:52)
[2022-10-09] MEDS ORDERED: hydrOXYzine HCl 25 MG TAB PO SCH (21:00)
[2022-10-09] MEDS ORDERED: LANTUS PER UNIT CHARGE SC SCH (21:00)
[2022-10-09] MEDS ORDERED: OLANZapine 5 MG TABLET PO SCH (21:00)
[2022-10-09] MEDS ORDERED: busPIRone 15 MG TAB PO SCH (21:00)
[2022-10-09] MEDS ORDERED: MELATONIN 3 MG TAB PO SCH (21:00)
[2022-10-09] MEDS ORDERED: INSULIN DEGLUDEC 100 UNIT SQ SCH (21:00)
[2022-10-09] MEDS: hydrALAZINE HCL 20 MG/ML VIAL IV PRN (23:20)
[2022-10-10] MEDS ORDERED: SODIUM CHLORIDE 0.65% NA SOLN 45 ML (OCEAN) ONE (00:11)
[2022-10-10] MEDS: INSULIN ASPART PER UNIT CHARGE SC SCH ×4 (00:23→12:49)
[2022-10-10] MEDS: hydrALAZINE HCL 20 MG/ML VIAL IV PRN ×2 (03:01→09:32)
[2022-10-10 07:12] LABS: Basophils # (auto) 0.06 K/uL (0-0.2); Basophils % (auto) 0.6 %; Eosinophils # (auto) 0.43 K/uL (0-0.50); Eosinophils % (auto) 4.6 %; Hemoglobin 14.3 g/dl (12.0-16.0); Immature Granulocytes # (auto) 0.03 K/uL (0.01-0.20); Immature Granulocytes % (auto) 0.3 %; Lymphocytes # (auto) 3.06 K/uL (1.2-3.4); Lymphocytes % (auto) 32.6 %; Mean Corpuscular Hgb Conc 33.3 g/dL (32.0-36.0); Mean Corpuscular Volume 90.3 fL (80.0-100.0); Mean Platelet Volume 10.2 fL (9.4-12.4); Monocytes # (auto) 0.91 K/uL (0.11-0.59); Monocytes % (auto) 9.7 %; Neutrophils % (auto) 52.2 %; Platelet Count 358 K/uL (130-400); RDW Coefficient of Variation 13.8 % (11.5-14.5); RDW Standard Deviation 45.5 fL (36.4-46.3); Red Blood Count 4.76 M/uL (4.20-5.40); White Blood Count 9.39 K/ul (4.8-10.8)
[2022-10-10 07:24] LABS: Calcium 11.4 mg/dl (8.6-10.3); Creatinine Clr Calc Pharmacy 60.3 ml/min; Est GFR (Non-African American) 60.4 ml/min; Potassium 3.4 mmol/L (3.5-5.1)
[2022-10-10] MEDS: cloNIDine HCL 0.1 MG TAB PO SCH ×2 (08:18→13:03)
[2022-10-10] MEDS ORDERED: NON-FORMULARY MEDICATION (Insulin Degludec [Tresiba Flextouch U-200] 200 unit/mL (3 mL) in SQ SCH (09:00)
[2022-10-10] MEDS ORDERED: DOCUSATE SODIUM 100 MG CAP PO SCH (09:00)
[2022-10-10] MEDS ORDERED: busPIRone 5 MG TAB PO SCH (09:00)
[2022-10-10] MEDS ORDERED: OLANZapine 5 MG TABLET PO SCH (09:00)
[2022-10-10] MEDS ORDERED: SITagliptin PHOSPHATE 100 MG TAB PO SCH (09:00)
[2022-10-10] MEDS ORDERED: lisinopril 40 MG TAB PO SCH (09:00)
[2022-10-10] MEDS ORDERED: FENOFIBRATE NANOCRYSTALLIZED 145 MG TABLET PO SCH (09:00)
[2022-10-10] MEDS ORDERED: LANTUS PER UNIT CHARGE SC SCH (09:00)
[2022-10-10] MEDS ORDERED: SPIRONOLACTONE 100 MG TAB PO SCH (09:00)
[2022-10-10] MEDS ORDERED: VILAZODONE 10 MG PO SCH (09:00)
[2022-10-10] MEDS ORDERED: ATORVASTATIN 20 MG TAB PO SCH (09:00)
[2022-10-10] MEDS ORDERED: FUROSEMIDE 40 MG TAB PO SCH (09:00)
[2022-10-10] MEDS ORDERED: PROPRANOLOL HCL LA 80 MG CAPCR PO SCH (09:00)
--- NOTE | 2022-10-10 09:35 | Pharmacy Report ---
Pharmacy Glycemic Short Note 2 - Date of Service October 10, 2022 - Glycemic Short BSG Results (Last 24 hours): 10/09/22 10/09/22 10/10/22 09:24 20:42 00:00 Glucose 221 H POC Glucose 218 H 138 H 10/10/22 10/10/22 10/10/22 04:13 05:58 08:01 Glucose 138 H POC Glucose 98 157 H OUTPATIENT ANTIDIABETIC REGIMEN: * Tresiba 200 units SC daily (last outpatient dose was reportedly 10/07 or 10/08) * Novolog 60 units SC BIDM * Metformin 1000 mg PO BIDM * Januvia 100 mg PO daily HbA1c pending ASSESSMENT: * TR is a 57 year old female who presented to ED on 10/09 after suffering a fall due to dizziness * Pertinent PMH includes history of T2DM on large doses of insulin as an outpatient * Patient follows with [facility] * Received 80 units of Lantus last evening (patient reports no basal adminis tered prior to admission on 10/09) and 10 units of Novolog * Patient to be discharged this afternoon PLAN FOR INPATIENT GLYCEMIC CONTROL: * Hold outpatient oral diabetes medications * Basal insulin * Lantus 40 units SC x 1 this morning * Bolus insulin * NovoLog per scale ACHS or Q6hrs while NPO * Goal Range: Low 110 mg/dL - High 140 mg/dL * Correction Factor: 10 mg/dL/unit * Nutritional / Prandial insulin per carb ratio of 1 unit per 2 grams CHO consumed
[2022-10-10 10:30] LABS: Estimated Average Glucose 189 mg/dl; Hemoglobin A1C 8.2 % (4.5-5.6)
--- NOTE | 2022-10-10 13:58 | XCELERA ---
[id number] \\[id number]
--- NOTE | 2022-10-10 14:01 | Discharge Summary ---
Date of Service October 10, 2022 Admission HPI Per Admitting Provider Jeri Martins is a 57 year old female who presents to the ER due to a fall earlier today. Fall occurred in the context of feeling dizzy. She denies lightheadedness but feels this dizziness was more room spinning sensation. Last for about 2 minutes while smoking a cigarette. Never had this happen before. She did not lose consciousness but fell forward. She does note sticking out her arms but could not catch herself so hit her face on concrete. No injuries to her arms or legs. Pain on her nose. No headache or neck pain. Otherwise she was feeling well this morning and back to her baseline now. Principal Diagnosis near syncope Discharge Exam The patient is awake, alert and oriented 3, well developed and well nourished, normocephalic and atraumatic, lying in bed and in no acute distress. HEENT--PERRL, EOMI, mucous membranes and oropharynx mildly dry Neck--supple. No JVD. No bruits. Thyroid normal, trachea midline, no adenopathy. Heart--normal S1 and S2. No murmurs, rubs or gallops. Lungs--clear bilaterally, no respiratory distress, no accessory muscle use. Abdomen--normal bowel sounds and soft. Mild epigastric and left sided abdominal pain Extremities--no cyanosis or clubbing. No edema. Dermatologic--normal skin turgor, normal color, no abnormal lymph nodes, no rash. Neurologic--cranial nerves II through XII grossly intact. Rheumatologic--normal range of motion. Psychiatric--normal affect. Discharge Data Allergies Allergy/AdvReac Type Severity Reaction Status Date / Time amoxicillin Allergy Unknown HAPPENED Verified 10/09/22 12:59 A CHILD ciprofloxacin Allergy Unknown HAPPENED Verified 10/09/22 12:59 A CHILD clavulanic acid Allergy Unknown HAPPENED Verified 10/09/22 12:59 [From Augmentin] A CHILD Consultations 10/09/22 16:51 ED Decision to Admit Stat Ordered Studies 10/09/22 10:09 CT cervical spine wo con Stat CT facial bones wo con Stat CT head/brain wo con Stat 10/09/22 11:19 CT angio chest PE protocol Stat Hospital Course (1) Dizziness: Patient states she felt dizzy immediately she inhaled some smoke from a tobacco, she also felt unsteady and fell Sustained a minor laceration of the nasal bone bridge Monitor on telemetry for arrhythmia as history somewhat unreliable Patient denies any further episodes of dizziness, walked around the hallway Expressed willingness to be discharged home. (2) Fall: Due to dizziness as above. Conscious throughout per patient but unable to catch herself with her arm strength. PT/OT evals (3) Hypertension: Longstanding problem managed by Dr Bates Missed her clonidine, will give dose now. Lasix 40mg IV now. Continue clonidine, furosemide, lisinopril, propranolol. Add back her spironolactone. Hydralazine 10mg IV q4h PRN for sBP > 180, dBP > 120 (4) Type 2 diabetes mellitus, with long-term current use of insulin: HbA1C 9.4 in July, repeat with AM labs Tresiba switched to Lantus 100 units BID Novolog base on basal dosing: --Goal BSG Range: Low 110 mg/dL, High 140 mg/dL --Correction Factor: 5 mg/dL/unit --Carbohydrate ratio = 1 g/unit --BSGs ACHS if eating, q6h if npo Consult pharmacy for glycemic control given high insulin requirement (5) Elevated troponin: Mild elevation and stable. No chest pain or shortness of breath to suggest ACS. Do not suspect contributed towards fall. (6) Nasal contusion: Routine wound care by nursing. No acute facial fracture on CT (7) Schizoaffective disorder, bipolar type: Continue her routine medications (8) Anxiety: Plan Discharge home Total Time Total Time Spent Total Time Spent (In Minutes): 35 Discharge Plan Discharge Items Patient Disposition: Home - Self-Care Reason For Visit: PRESYNCOPE Discharge Diagnosis: presyncope Activity: Resume your previous activity Non-emergency contact: Primary Care Provider Call non-emergency contact if: you have any medication questions Follow-up/Referrals: Christiana Crawford CRNP [Primary Care Provider] - 10/18/22 10:30 am Diet: Regular Addtl Attending Provider Instructions: please follow up with your regular PCP Pending Studies at Discharge: No Stand-Alone Forms: My [employer], Smoking Cessation Medications and DC Order Prescriptions: Continued Januvia 100 mg tablet 100 mg PO DAILY Qty: 90 3RF clonidine HCl 0.2 mg tablet 0.2 mg PO TID Qty: 270 3RF Rx Instructions: QAM, noon, and bedtime atorvastatin 20 mg tablet 20 mg PO DAILY Qty: 30 11RF metformin 1,000 mg tablet 1,000 mg PO BID Qty: 60 11RF Hold Instructions: eGFR <30 pen needle, diabetic [BD Ultra-Fine Alda Pen Needle] 32 gauge x 5/32" needle See Rx Instructions .ROUTE .COMPLEX Qty: 100 5RF Dose Instruction: USE 1 DAILY. Rx Instructions: USES UP TO 4 DAILY DX:E11.9 lisinopril 40 mg tablet 40 mg PO DAILY Qty: 90 3RF (DME) FreeStyle Rosa 14 Day Sensor Kit See Rx Instructions .Route Qty: 4 5RF Rx Instructions: test BS 3-4 times a day spironolactone 50 mg tablet 100 mg PO DAILY Qty: 180 3RF Hold Instructions: Home Medication placed on hold at Doctor's office propranolol 160 mg capsule,extended release 24 hr 160 mg PO DAILY Qty: 90 3RF fenofibrate nanocrystallized 145 mg tablet 145 mg PO DAILY Qty: 30 11RF melatonin 10 mg tablet 10 mg PO HS docusate sodium 100 mg capsule 100 mg PO DAILY Tresiba FlexTouch U-200 200 unit/mL (3 mL) insulin pen 200 unit subcut DAILY Qty: 36 5RF (DME) FreeStyle Rosa 14 Day [place] Misc See Rx Instructions .Route Qty: 1 0RF Rx Instructions: As directed furosemide 20 mg tablet 40 mg PO DAILY Qty: 180 3RF hydroxyzine HCl 50 mg tablet 50 mg PO HS Rx Instructions: Per dr duque insulin aspart U-100 [Novolog FlexPen U-100 Insulin] 100 unit/mL (3 mL) insulin pen 0 unit subcut DIRECTED ascorbic acid (vitamin C) [Vitamin C] 1,000 mg Tablet 1 g PO DAILY clonazepam [Klonopin] 0.5 mg Tablet 0.5 mg PO DAILY PRN (Reason: Panic Attack(S)) One Daily For Women 18-0.4 mg Tablet 1 tab PO DAILY olanzapine 5 mg tablet See Rx Instructions .ROUTE .COMPLEX Rx Instructions: 5 mg orally; TAKES 5 MG QAM, THEN 15 MG QHS. buspirone 10 mg tablet See Rx Instructions .ROUTE .COMPLEX Rx Instructions: 10 mg orally; TAKES 20 MG QAM, THEN 30 MG QHS. vilazodone 10 mg tablet 10 mg PO QAM Rx Instructions: TOTAL DOSE 30 MG--TAKES WITH 20 MG TAB. must administer with a meal/food, vilazodone 20 mg tablet 20 mg PO QAM Rx Instructions: TOTAL DOSE 30 MG--TAKES WITH 10 MG TAB. must administer with a meal/food, Discontinued baclofen 10 mg tablet 10 mg PO TID PRN (Reason: muscle spasm) Qty: 60 2RF Discharge Orders: Discharge Order (Routine); Ordered 10/10/22 Ordered By: Bess Palomo/Other Patient Handouts: Controlling High Blood Pressure, Managing Type 2 Diabetes, Dizziness Fainting Causes, Vertigo Staying Safe, Hypertension Dc Admission Data Admit Date/Time: 10/09/22 16:40 Attending Provider: Bess France Admit Provider: Tawanda Burrell Primary Care Provider: Christiana Crawford Other Providers: Tawanda Burrell Other Interventions: Discharge Summary Assessment (RN) Last Done: 10/10/22 12:52 Coding Level of Care Code 98454 INP/OBS DISCH >30 MIN Diagnoses Dizziness R42 Fall W19.XXXA Hypertension I10 Type 2 diabetes mellitus, with long-term current use of insulin E11.9; Z79.4 Elevated troponin R77.8 Nasal contusion S00.33XA Schizoaffective disorder, bipolar type F25.0 Anxiety F41.9 Time Spent (min) 35
--- NOTE | 2022-10-11 05:59 | Electrocardiogram Report ---
Test Reason : Blood Pressure : / mmHG Vent. Rate : 082 BPM Atrial Rate : 082 BPM P-R Int : 166 ms QRS Dur : 082 ms QT Int : 378 ms P-R-T Axes : 057 -39 069 degrees QTc Int : 441 ms Normal sinus rhythm Left axis deviation Moderate voltage criteria for LVH, may be normal variant Poor R wave progression, consider anterior CO vs. lead placement vs. LVH Abnormal ECG When compared with ECG of 30-APR-2016 01:16, QT has lengthened Confirmed by Jeff Mejias ([id number]) on 10/11/2022 5:59:05 AM Referred By: REFERRED SELF Confirmed By:Jeff Mejias
== END 2022-10-10 13:39 | disposition home or self-care (01) ==
LOC: ED 09:06 → 2N 09:06 → SUATTDRO 16:40 → 2N 18:28
DX: Z79.4 Long term (current) use of insulin; S00.33XA Contusion of nose, initial encounter; Z79.899 Other long term (current) drug therapy; Z88.1 Allergy status to other antibiotic agents; R77.8 Other specified abnormalities of plasma proteins; I11.9 Hypertensive heart disease without heart failure; F17.210 Nicotine dependence, cigarettes, uncomplicated; I51.7 Cardiomegaly; E11.9 Type 2 diabetes mellitus without complications; R42 Dizziness and giddiness; W19.XXXA Unspecified fall, initial encounter